=== PATIENT | female | born 1945 | race Caucasian/White ===

== ENCOUNTER 2017-03-10 01:00 | Inpatient (IN) | payer OTHER, MEDICARE ==
[2017-03-10] VITALS (24 sets, daily range): BP systolic 78–162; BP diastolic 47–115; PULSE 76–109; RESP 14–29; TEMP 96.5–99.5; O2SAT 84–100
[~2017-03-10] VITALS: Ht 167.6 cm; Wt 67.5 kg
[~2017-03-10 01:00] MED LIST: ALEN1TAB48 PO; ALPR0.5T3 PO; CHOL1TAB42 PO; FERR1TAB36 PO; FLUT50SP EACH NARE; GABA600T PO; HYDR-3580 PO; LEVA.63I NEB; MELO-1 PO; METO10TA4 PO; OMEP20TA PO; POTA10TA2 PO; PRED5TAB PO; SYMB160A INH; THEO300T4 PO; TIZA2TAB PO; TORS20TA PO; TRAM50TA PO; VENTAER INH; VITA400C5 PO
[2017-03-10] MEDS ORDERED: THEO300T30 PO (01:15)
[2017-03-10] MEDS ORDERED: FERR325T8 PO (01:15)
[2017-03-10] MEDS ORDERED: ACIDWAF (01:15)
[2017-03-10] MEDS ORDERED: IPRASOL INH (01:15)
[2017-03-10] MEDS ORDERED: NYST1000 SWISH-SWAL (01:15)
[2017-03-10] MEDS ORDERED: ACET250T3 PO (01:15)
[2017-03-10] MEDS ORDERED: CALC12502 PO (01:15)
[2017-03-10] MEDS ORDERED: DILT1TAB PO (01:15)
[2017-03-10] MEDS ORDERED: FUROSEMIDE 100 MG/10 ML VIAL IVP ONE (01:15)
[2017-03-10] MEDS ORDERED: SODIUM CHLORIDE 0.9% FLUSH 10 ML FLUSH IVF PRN (01:15)
[2017-03-10] MEDS ORDERED: COLA100C (01:15)
[2017-03-10] MEDS ORDERED: [UNRECOGNIZED DRUG - CODE] IV PUSH (01:15)
[2017-03-10] MEDS: RESP: ALBUTEROL 2.5 MG/IPRATROPIUM 0.5 MG NEB (SCH) INH (01:37)
[2017-03-10 01:46] LABS: BLOOD GAS BASE EXCESS 11.7 mmol/L (-2-2); BLOOD GAS CARBOXYHEMOGLOBIN 1.4 % (0-4); BLOOD GAS HCO3 40 mmol/L (22-26); BLOOD GAS METHEMOGLOBIN 0.8 % (0-2); BLOOD GAS O2 HGB SATURATION 93 % (90-100); BLOOD GAS OXYGEN CONTENT 12.3 Vol % (12.0-20.0); BLOOD GAS PCO2 109 mmHg (38-42); BLOOD GAS PO2 88 mmHG (61-120); BLOOD GAS TOTAL HGB 9.3 G/DL (12.0-16.0); CRITICAL VALUE YES; DRAW SITE RT RADIAL; FIO2 40 %; NUMBER OF ARTERIAL PUNCTURES 1; OXYGEN DEVICE BIPAP; STAT YES; TEMP CORR TO 98.6; ULNAR PULSE PRESENT; VENT SETTINGS IPAP12/EPAP5
[2017-03-10 01:57] LABS: AUTOMATED NEUTROPHIL # 14.5 TH/MM3 (1.8-7.7); BASOPHIL # 0.2 TH/MM3 (0-0.2); BASOPHIL % 1.4 % (0.0-2.0); HEMO FLAGS DIFF FINAL; LYMPH % 2.2 % (9.0-44.0); LYMPHOCYTE # 0.3 TH/MM3 (1.0-4.8); MEAN CELL VOLUME 91.4 FL (80.0-100.0); MEAN CORPUSCULAR HEMOGLOBIN 28.6 PG (27.0-34.0); MEAN CORPUSCULAR HGB CONC 31.3 % (32.0-36.0); MONO % 2.9 % (0.0-8.0); NEUT % 93.5 % (16.0-70.0); PLATELET COUNT 261 TH/MM3 (150-450); RED BLOOD COUNT 3.07 MIL/MM3 (4.00-5.30); RED CELL DISTRIBUTION WIDTH 15.9 % (11.6-17.2); WHITE BLOOD COUNT 15.5 TH/MM3 (4.0-11.0)
[2017-03-10 02:05] LABS: APTT (PATIENT) 24.7 SEC (24.3-30.1); INTERNATIONAL NORMALIZED RATIO 0.9 RATIO; PROTHROMBIN TIME - PATIENT 9.5 SEC (9.8-11.6)
[2017-03-10] MEDS ORDERED: PIPERACIL-TAZO 4.5 GM PREMIX 100 ML IV STA (02:05)
[2017-03-10 02:08] LABS: ALKALINE PHOSPHATASE 134 U/L (45-117); ALT (GPT) 21 U/L (10-53); TOTAL BILIRUBIN ADULT 0.3 MG/DL (0.2-1.0)
[2017-03-10 02:12] LABS: ANION GAP 8 MEQ/L (5-15); AST (GOT) 21 U/L (15-37); BICARBONATE 35.6 MEQ/L (21.0-32.0); BLOOD UREA NITROGEN 24 MG/DL (7-18); CHLORIDE 89 MEQ/L (98-107); GLOMERULAR FILTRATION RATE 63 ML/MIN (>89); POTASSIUM 4.2 MEQ/L (3.5-5.1); SODIUM (NA) 133 MEQ/L (136-145)
[2017-03-10] MEDS ORDERED: VANCOMYCIN INJ 1,000 MG in SODIUM CHLOR 0.9% 250 ML INJ 250 ML IV ONE (02:15)
--- NOTE | 2017-03-10 02:15 | PD ---
HPI Chief Complaint: Respiratory Distress Time Seen by Provider: 01:08 Travel History International Travel<30 days: No Contact w/Intl Traveler<30days: No Traveled to known affect area: No History of Present Illness HPI Patient is a 72-year-old female with history of COPD, pneumonia, diastolic heart failure on chronic home O2 who presents the emergency department with shortness of breath. Patient reportedly recently discharged from [facility] for pneumonia. She has been convalescing at [facility]. At 11 PM shift change nursing staff there noticed patient to be dyspneic. Crackles throughout. She was hypoxic in the 70s. They placed her on 50% Ventimask without improvement and EMS was contacted. Upon EMS arrival, patient hypoxic with diffuse crackles alert and oriented. She was placed on C-peptide by EMS with improvement of O2 sats into the low 90s. EMS to noted diffuse crackles. No fever. Patient notes that she's had some increasing phlegm production over the last 24 hours. Denies any fevers or chills. PFSH Past Medical History Arthritis: Yes Asthma: Yes Anxiety: Yes Depression: Yes Heart Rhythm Problems: Yes (DIASTOLIC DYSFUNCTION) Cancer: No Cardiovascular Problems: No High Cholesterol: Yes COPD: Yes (COPD) Diabetes: No Diminished Hearing: No Endocrine: No Glaucoma: No Hepatitis: No Hiatal Hernia: No Hypertension: No Immune Disorder: No Implanted Vascular Access Dvce: Yes Musculoskeletal: Yes Neurologic: Yes Psychiatric: Yes Reproductive: No Respiratory: Yes (ON OXYGEN 3 LITERS 24/7) Seizures: Yes (NOCTURNAL SEIZURES YEARS AGO) Sleep Apnea: Yes (VERY MILD) Thyroid Disease: No Menopausal: Yes Past Surgical History Abdominal Surgery: Yes () Appendectomy: Yes (1977) Cardiac Surgery: No Ear Surgery: No Endocrine Surgery: No Eye Surgery: Yes (BILATERAL CATARACT EXTRACTION) Genitourinary Surgery: No Gynecologic Surgery: Yes (UTERINE SUSP., LAPAROSCOPY LEFT SALPINGO OOPHORECTOMY ) Hysterectomy: Yes (PARTIAL) Oral Surgery: No Pacemaker: No Thoracic Surgery: No Other Surgery: Yes Social History Alcohol Use: No Tobacco Use: Yes (QUIT LONG AGO) Substance Use: No Allergies-Medications (Allergen,Severity, Reaction): Coded Allergies: Betadine (Verified Allergy, Severe, EDEMA, SKIN BREAKDOWN, 08/13/16) Cephalosporins (Verified Allergy, Severe, YEAAST INFECT., 08/13/16) Cipro (Verified Allergy, Severe, GENERALIZED NUMBNESS, BREATHING PROBLEMS , 08/13/16) Contrast Media (Verified Allergy, Severe, HIVES, CARDIAC ARREST, 08/13/16) Iodine (Verified Allergy, Severe, SWELLING, SKIN BREAKDOWN, 08/13/16) Keflex (Verified Allergy, Severe, 08/13/16) Levaquin (Verified Allergy, Severe, NUMBNESS, SHORTNESS OF BREATH, 08/13/16) Zithromax (Verified Allergy, Severe, 08/13/16) Morphine (Verified Allergy, Mild, ITCHING, 08/13/16) PATIENT STARTED ITCHING AFTER SECOND DOSE OF MORPHINE, NO HIVES OR DIFFICULTY BREATHING NOTED. NURSE GOING TO CALL MD FOR ALVARADO ORDER PATIENT REFUSED IT. Barium Sulfate (Verified Allergy, Unknown, ITCHING AFTER ONE CUP E-Z CAT DRY, 08/13/16) Reported Meds & Prescriptions Reported Meds & Active Scripts Active Reported Theophylline ER 12 HR (Theophylline) 300 Mg Tab 300 Mg PO Q12H Nystatin Liq 100,000 unit/ml Susp 5 Ml SWISH-SWAL QID Acidophilus (Lactobacillus) 1 Mg Wafr Gentamicin Sulfate 5 Gm Powder 160 Mg IV PUSH DAILY Ferrous Sulfate 325 Mg (65 Mg Iron) Tablet 325 Mg PO DAILY Duoneb (Ipratropium-Albuterol Neb) 0.5-2.5 Mg/3 Ml Neb 1 Nebule INH Q6HR NEB Colace (Docusate Sodium) 100 Mg Capsule Cardizem LA (Diltiazem ER 24 HR) 360 Mg Na 360 Mg PO DAILY Calcium Carbonate 1,250 Mg Tab 1,250 Mg PO BID 1,250 mg calcium carbonate (500 mg elemental calcium) Acetazolamide 250 Mg Tab 250 Mg PO DAILY Prednisone 5 Mg Tab 5 Mg PO BID Vitamin D-3 (Cholecalciferol) 2,000 Unit Tab 1 Tab PO DAILY Tramadol (Tramadol HCl) 50 Mg Tab 50 Mg PO Q4H PRN Fluticasone Nasal [place] 50 Mcg/Act Naspr 50 Mcg EACH NARE BID 50 mcg/spray Symbicort Inh (Budesonide/Formoterol Fumarate) 160-4.5 Mcg/Act Aero 1 Puff INH Q12HR Torsemide 20 Mg Tab 20 Mg PO DAILY Tizanidine (Tizanidine HCl) 2 Mg Tab 2 Mg PO TID Alendronate (Alendronate Sodium) 70 Mg Tab 70 Mg PO Q7D Omeprazole 20 Mg Tab 20 Mg PO DAILY Gabapentin 600 Mg Tab 600 Mg PO QID Hydrocodone-Acetaminophen 7.5-325 mg Tab 1 Tab PO Q6H PRN Review of Systems Except as stated in HPI: all other systems reviewed are Neg Physical Exam Narrative GENERAL: Chronically debilitated. Elderly female in moderate respiratory distress SKIN: Focused skin assessment warm/dry. HEAD: Normocephalic. EYES: No scleral icterus. No injection or drainage. ENT: Mucous membranes pink and moist. NECK: Supple CARDIOVASCULAR: Regular rate and rhythm. No murmur appreciated. RESPIRATORY: Moderate respiratory distress on C Pap with diffuse crackles, rhonchi throughout worse in the bases GASTROINTESTINAL: Abdomen soft, non-tender, nondistended. MUSCULOSKELETAL: No obvious deformities. 2-3+ edema in the bilateral lower extremities NEUROLOGICAL: Awake and alert. Normal speech. PSYCHIATRIC: Appropriate mood and affect; insight and judgment normal. Data Data Last Documented VS Vital Signs Date Time Temp Pulse Resp B/P Pulse Ox O2 Delivery O2 Flow Rate FiO2 03/10/17 02:36 82 20 104/52 99 CPAP 100 03/10/17 01:08 97.6 Orders Complete Blood Count With Diff (03/10/17 01:08) Comprehensive Metabolic Panel (03/10/17 01:08) B-Type Natriuretic Peptide (03/10/17 01:08) Act Partial Throm Time (Ptt) (03/10/17 01:08) Prothrombin Time / Inr (Pt) (03/10/17 01:08) Troponin I (03/10/17 01:08) Arterial Blood Gas (Abg) (03/10/17 01:08) Urinalysis - C+S If Indicated (03/10/17 01:08) Blood Culture (03/10/17 01:08) Iv Access Insert/Monitor (03/10/17 01:08) Electrocardiogram (03/10/17 01:08) Ecg Monitoring (03/10/17 01:08) Oximetry (03/10/17 01:08) Oxygen Administration (03/10/17 01:08) Chest, Single Ap (03/10/17 01:08) Cath For Specimen (03/10/17 01:08) Sodium Chloride 0.9% Flush (Ns Flush) (03/10/17 01:15) Furosemide Inj (Lasix Inj) (03/10/17 01:15) Albuterol-Ipratropium Neb (Duoneb Neb) (03/10/17 01:15) Resp Bipap / Cpap Non Invas Vt (03/10/17 01:08) Lipase (03/10/17 01:08) Lactic Acid Sepsis Protocol (03/10/17 01:08) Blood Culture (03/10/17 01:08) Piperacil-Tazo 4.5 Gm Premix (Zosyn 4.5 (03/10/17 02:05) Vancomycin Inj (Vancomycin Inj) (03/10/17 02:15) Labs Laboratory Tests Test 03/10/17 03/10/17 03/10/17 01:15 01:35 02:08 White Blood Count 15.5 TH/MM3 Red Blood Count 3.07 MIL/MM3 Hemoglobin 8.8 GM/DL Hematocrit 28.0 % Mean Corpuscular Volume 91.4 FL Mean Corpuscular Hemoglobin 28.6 PG Mean Corpuscular Hemoglobin 31.3 % Concent Red Cell Distribution Width 15.9 % Platelet Count 261 TH/MM3 Mean Platelet Volume 8.5 FL Neutrophils (%) (Auto) 93.5 % Lymphocytes (%) (Auto) 2.2 % Monocytes (%) (Auto) 2.9 % Eosinophils (%) (Auto) 0.0 % Basophils (%) (Auto) 1.4 % Neutrophils # (Auto) 14.5 TH/MM3 Lymphocytes # (Auto) 0.3 TH/MM3 Monocytes # (Auto) 0.5 TH/MM3 Eosinophils # (Auto) 0.0 TH/MM3 Basophils # (Auto) 0.2 TH/MM3 CBC Comment DIFF FINAL Differential Comment Prothrombin Time 9.5 SEC Prothromb Time International 0.9 RATIO Ratio Activated Partial 24.7 SEC Thromboplast Time Sodium Level 133 MEQ/L Potassium Level 4.2 MEQ/L Chloride Level 89 MEQ/L Carbon Dioxide Level 35.6 MEQ/L Anion Gap 8 MEQ/L Blood Urea Nitrogen 24 MG/DL Creatinine 0.88 MG/DL Estimat Glomerular Filtration 63 ML/MIN Rate Random Glucose 155 MG/DL Lactic Acid Level 2.5 mmol/L Calcium Level 9.4 MG/DL Total Bilirubin 0.3 MG/DL Aspartate Amino Transf 21 U/L (AST/SGOT) Alanine Aminotransferase 21 U/L (ALT/SGPT) Alkaline Phosphatase 134 U/L Troponin I LESS THAN 0.02 NG/ML B-Type Natriuretic Peptide 87 PG/ML Total Protein 7.1 GM/DL Albumin 2.0 GM/DL Lipase 130 U/L Blood Gas Puncture Site RT RADIAL Blood Gas Patient Temperature 98.6 Blood Gas HCO3 40 mmol/L Blood Gas Base Excess 11.7 mmol/L Blood Gas Oxygen Saturation 93 % Arterial Blood pH 7.19 Arterial Blood Partial 109 mmHg Pressure CO2 Arterial Blood Partial 88 mmHG Pressure O2 Arterial Blood Oxygen Content 12.3 Vol % Arterial Blood 1.4 % Carboxyhemoglobin Arterial Blood Methemoglobin 0.8 % Blood Gas Hemoglobin 9.3 G/DL Oxygen Delivery Device BIPAP Blood Gas Ventilator Setting IPAP12/EPAP5 Blood Gas Inspired Oxygen 40 % Urine Color YELLOW Urine Turbidity CLEAR Urine pH 5.5 Urine Specific [place] 1.013 Urine Protein 30 mg/dL Urine Glucose (UA) NEG mg/dL Urine Ketones NEG mg/dL Urine Occult Blood NEG Urine Nitrite NEG Urine Bilirubin NEG Urine Urobilinogen LESS THAN 2.0 MG/DL Urine Leukocyte Esterase NEG Urine RBC 5 /hpf Urine WBC 3 /hpf Urine Bacteria RARE /hpf Urine Mucus FEW /lpf Microscopic Urinalysis Comment CULT NOT INDICATED MDM Medical Decision Making Medical Screen Exam Complete: Yes Emergency Medical Condition: Yes Medical Record Reviewed: Yes Differential Diagnosis 72-year-old female with history of COPD, pneumonia with recent hospital admission for same, diastolic heart failure here with increasing sputum production and shortness of breath 24 hours, hypoxic in the 70s. Differential includes COPD exacerbation, pneumonia, hypercapnic or hypoxic respiratory failure, CHF exacerbation, pulmonary edema, symptomatic anemia, ACS. Narrative Course Patient met by myself upon emergency department arrival. Placed on monitor, IV established and blood obtained. She was placed on BiPAP therapy, given DuoNeb 3 and 80 mg of Lasix given concern for pulmonary edema. Twelve-lead EKG shows sinus rhythm, short ND interval but no notable ST abnormalities. ABG shortly after patient was placed on BiPAP shows respiratory acidosis with pH 7.190, PCO2 109, PO2 87.8, bicarbonate 39.9, partially compensated. CBC, CMP, lipase, BNP, troponin, coags, urinalysis, blood cultures, lactic acid were obtained and notable for leukocytosis 15.1 with left shift. Hemoglobin 8.8. Lactic acid slightly elevated at 2.5. Patient was empirically covered with vancomycin and Zosyn for broad-spectrum antibiotics. Portable chest x-ray obtained that by my read shows no evidence of pulmonary vascular congestion or pulmonary edema, but rather airspace disease right greater than left. Therefore patient was given IV fluid resuscitation. We'll be admitted for further management of pulmonary source sepsis. On BiPAP patient is on 40% FiO2 with O2 sats in the low 90s and feels markedly improved. Obtain CBC and approximated one hour for repeat to evaluate for improvement. Critical Care Narrative Aggregate critical care time was 50 minutes. Time to perform other separately billable procedures was not included in the critical care time. My time did not include minutes spent treating any other patients simultaneously or on activities that did not directly contribute to the patient's treatment. The services I provided to this patient were to treat and/or prevent clinically significant deterioration that could result in: Cardiopulmonary decompensation, sepsis, , disability I provided critical care services requiring my management, as noted below: Chart data review, documentation time, medication orders and management, vital sign assessments/reviewing monitor data, ordering and reviewing lab tests, ordering and interpreting/reviewing x-rays and diagnostic studies, care of the patient and discussion of the patient with the admitting physicians. Sepsis Criteria SIRS Criteria (2 or more): Heart rate over 90, WBC > 91737, < 4000 or > 10% bands Sepsis Criteria (SIRS+source): Infect source susp/known Severe Sepsis (+one): Lactate >2 Criteria Outcome: Meets SIRS criteria, Meets sepsis criteria, Meets severe sepsis criteria Diagnosis Primary Impression: Severe sepsis Additional Impressions: Hospital-acquired pneumonia Hypercapnic respiratory failure Qualified Code: J96.22 - Acute on chronic respiratory failure with hypercapnia Acute respiratory failure with hypoxia Admitting Information Admitting Physician Requests: Admit Leyla Delgado MD Mar 10, 2017 02:15
[2017-03-10 02:30] LABS: BACTERIA, URINE RARE /hpf; BLOOD, URINE NEG (NEG); GLUCOSE,URINE NEG (NEG); KETONE, URINE NEG (NEG); MUCUS URINE FEW /lpf (OCC); NITRITE,URINE NEG (NEG); PH, URINE 5.5 (5.0-8.5); URINE COLOR YELLOW (YELLW/STRAW)
[2017-03-10 02:35] LABS: COMMENT (UR) CULT NOT INDICATED; CULTURE IF INDICATED CULT NOT INDICATED
--- NOTE | 2017-03-10 02:58 | RADRPT ---
EXAM DATE/TIME: 03/10/2017 01:21 [place] COMPARISON: No previous studies available for comparison. INDICATIONS : Respiratory distress. MEDICAL HISTORY : None. SURGICAL HISTORY : None. ENCOUNTER: Initial ACUITY: 1 day PAIN SCORE: Non-responsive. LOCATION: Bilateral chest FINDINGS: The cardiac silhouette is normal in transverse diameter. There are chronic fibrotic changes bilateral ly. There is no evidence of pneumonia. CONCLUSION: 1. Chronic fibrotic changes bilaterally. No acute pulmonary disease. Montrell Bustamante MD on March 10, 2017 at 2:52 Board Certified Radiologist. This report was verified electronically.
[2017-03-10] MEDS ORDERED: SODIUM CHLOR 0.9% 1000 ML INJ 1,000 ML IV ONE (03:00)
[2017-03-10 03:30] LABS: LACTIC ACID GHOST NOT REPORTABLE
[2017-03-10] MEDS ORDERED: SODIUM CHLOR 0.9% 1000 ML INJ 1,000 ML IV SCH (03:54)
[2017-03-10] MEDS ORDERED: methylPREDNISolone SOD SUCC 125 MG/2 ML VIAL IV PUSH STA (04:00)
[2017-03-10] MEDS: RESP: ALBUTEROL 2.5 MG/IPRATROPIUM 0.5 MG NEB (SCH) NEB ×5 (04:00→21:07)
[2017-03-10] MEDS ORDERED: MISCELLANEOUS NURSING INFORMATION XX SCH (04:00)
[2017-03-10] MEDS ORDERED: CHLORHEXIDINE GLUCONATE 2 % 1 PACK (2 CLOTHS) TOP PRN (04:00)
[2017-03-10] MEDS ORDERED: ACETAMINOPHEN 325 MG TAB PO PRN (04:00)
[2017-03-10] MEDS: ENOXAPARIN SODIUM 40 MG/0.4 ML SYRINGE SQ SCH (04:03)
[2017-03-10] MEDS: AZTREONAM INJ 1,000 MG in SODIUM CHLORIDE 0.9% INJ 100 ML IV SCH ×3 (04:38→20:41)
[2017-03-10] MEDS: THEOPHYLLINE ER 12 HR 300 MG TABCR PO SCH ×2 (04:39→14:50)
[2017-03-10 04:49] LABS: BLOOD GAS BASE EXCESS 11.9 mmol/L (-2-2); BLOOD GAS CARBOXYHEMOGLOBIN 1.3 % (0-4); BLOOD GAS HCO3 39 mmol/L (22-26); BLOOD GAS METHEMOGLOBIN 0.7 % (0-2); BLOOD GAS O2 HGB SATURATION 89 % (90-100); BLOOD GAS PCO2 89 mmHg (38-42); BLOOD GAS PO2 62 mmHG (61-120); BLOOD GAS TOTAL HGB 9.5 G/DL (12.0-16.0); CRITICAL VALUE YES; OXYGEN DEVICE BIPAP; TEMP CORR TO 98.6
[2017-03-10 04:50] LABS: DRAW SITE RT RADIAL; FIO2 45 %; NUMBER OF ARTERIAL PUNCTURES 1; STAT YES; ULNAR PULSE PRESENT; VENT SETTINGS IPAP=12 EPAP=5 RR=20
--- NOTE | 2017-03-10 05:10 | HHI.HP ---
HPI Service Critical Care Medicine Primary Care Physician Unknown Admission Diagnosis hypoxic/hypercapnic respiratory failure, pulmonary source sepsis Diagnosis: (1) Acute hypoxemic and hypercarbic respiratory failure Diagnosis: Principal (2) Acute exacerbation of chronic obstructive pulmonary disease (COPD) Diagnosis: Principal (3) Severe sepsis Diagnosis: Principal (4) Possible pneumonia Diagnosis: Principal (5) Diastolic heart failure Diagnosis: Secondary (6) COPD on home oxygen Diagnosis: Secondary (7) Seizure disorder Diagnosis: Secondary Chief Complaint: Acute hypoxemic and hypercarbic respiratory failure Travel History International Travel<30 Days: No Contact w/Intl Traveler <30 Da: No Traveled to Known Affected Are: No Sepsis Criteria SIRS Criteria (2 or more): RR > 20 or PaCO2 < 32, WBC > 76461, < 4000 or > 10 % bands Sepsis Criteria (SIRS+source): Infect source susp/known Severe Sepsis (+one): Lactate >2 Criteria Outcome: Meets severe sepsis criteria History of Present Illness Patient is a 72-year-old chronically ill debilitated female with history of COPD on home oxygen, pneumonia, diastolic heart failure, COPD on chronic home O2 who presented to the emergency department with shortness of breath. She was recently discharged from [facility] after admission for pneumonia and was at [facility] for Rehab. Patient was dyspneic with crackles on the chest and 70% oxygen saturation. jail placed her on 50% Ventimask without improvement and EMS was contacted. EMS initiated on CPAP with improvement of O2 saturation to 90s. In emergency department patient was found in acute distress and was placed on BiPAP, given DuoNeb 3 and 80 mg of Lasix IV. ABG just after patient was placed on BiPAP shows respiratory acidosis with pH 7.19, PCO2 109, PO2 88. WBC was elevated at 15.1 with left shift. Lactic acid slightly elevated at 2.5. Patient was empirically covered with vancomycin and Zosyn for possible HCAP I evaluated the patient in the ED. Currently remains on BiPAP symptomatically slightly improved but still has labored breathing and diffuse crackles. Patient would like to try to avoid intubation if possible and son concurs with her decision. She want to continue to be a full code. Chest x-ray on my review did not show any acute infiltrates. I will continue breathing treatments and start IV Solu-Medrol 125 mg 1 and 60 mg IV every 8 hours. Broad -spectrum antibiotics coverage with Azactam. Updated patient and her son at the bedside. I informed him that if not steadily improving patient may need endotracheal intubation Review of Systems ROS Limitations: Clinical Condition (as per HPI) Past Family Social History Allergies: Coded Allergies: Betadine (Verified Allergy, Severe, EDEMA, SKIN BREAKDOWN, 08/13/16) Cephalosporins (Verified Allergy, Severe, YEAAST INFECT., 08/13/16) Cipro (Verified Allergy, Severe, GENERALIZED NUMBNESS, BREATHING PROBLEMS , 08/13/16) Contrast Media (Verified Allergy, Severe, HIVES, CARDIAC ARREST, 08/13/16) Iodine (Verified Allergy, Severe, SWELLING, SKIN BREAKDOWN, 08/13/16) Keflex (Verified Allergy, Severe, 08/13/16) Levaquin (Verified Allergy, Severe, NUMBNESS, SHORTNESS OF BREATH, 08/13/16) Zithromax (Verified Allergy, Severe, 08/13/16) Morphine (Verified Allergy, Mild, ITCHING, 08/13/16) PATIENT STARTED ITCHING AFTER SECOND DOSE OF MORPHINE, NO HIVES OR DIFFICULTY BREATHING NOTED. NURSE GOING TO CALL MD FOR ALVARADO ORDER PATIENT REFUSED IT. Barium Sulfate (Verified Allergy, Unknown, ITCHING AFTER ONE CUP E-Z CAT DRY, 08/13/16) Past Medical History COPD on home oxygen Diastolic heart failure Past history of seizure Anxiety Past Surgical History Appendectomy Cataract surgery Partial hysterectomy Left salpingo-oophorectomy Reported Medications Theophylline ER 12 HR (Theophylline) 300 Mg Tab 300 Mg PO Q12H Nystatin Liq 100,000 unit/ml Susp 5 Ml SWISH-SWAL QID Acidophilus (Lactobacillus) 1 Mg Wafr Gentamicin Sulfate 5 Gm Powder 160 Mg IV PUSH DAILY Ferrous Sulfate 325 Mg (65 Mg Iron) Tablet 325 Mg PO DAILY Duoneb (Ipratropium-Albuterol Neb) 0.5-2.5 Mg/3 Ml Neb 1 Nebule INH Q6HR NEB Colace (Docusate Sodium) 100 Mg Capsule Cardizem LA (Diltiazem ER 24 HR) 360 Mg Na 360 Mg PO DAILY Calcium Carbonate 1,250 Mg Tab 1,250 Mg PO BID 1,250 mg calcium carbonate (500 mg elemental calcium) Acetazolamide 250 Mg Tab 250 Mg PO DAILY Prednisone 5 Mg Tab 5 Mg PO BID Vitamin D-3 (Cholecalciferol) 2,000 Unit Tab 1 Tab PO DAILY Tramadol (Tramadol HCl) 50 Mg Tab 50 Mg PO Q4H PRN Fluticasone Nasal [place] 50 Mcg/Act Naspr 50 Mcg EACH NARE BID 50 mcg/spray Symbicort Inh (Budesonide/Formoterol Fumarate) 160-4.5 Mcg/Act Aero 1 Puff INH Q12HR Torsemide 20 Mg Tab 20 Mg PO DAILY Tizanidine (Tizanidine HCl) 2 Mg Tab 2 Mg PO TID Alendronate (Alendronate Sodium) 70 Mg Tab 70 Mg PO Q7D Omeprazole 20 Mg Tab 20 Mg PO DAILY Gabapentin 600 Mg Tab 600 Mg PO QID Hydrocodone-Acetaminophen 7.5-325 mg Tab 1 Tab PO Q6H PRN Active Ordered Medications Reviewed Family History Unable to obtain due to clinical condition Social History Quit smoking approximately 5 years ago Physical Exam Vital Signs Vital Signs Date Time Temp Pulse Resp B/P Pulse Ox O2 Delivery O2 Flow Rate FiO2 03/10/17 04:51 92 45 03/10/17 02:50 80 20 124/56 88 CPAP 40 03/10/17 02:36 82 20 104/52 99 CPAP 100 03/10/17 02:30 100 35 03/10/17 01:56 100 BiPAP 03/10/17 01:13 100 CPAP 100 03/10/17 01:08 97.6 87 23 101/51 94 CPAP 100 03/10/17 01:08 24 94 CPAP 100 03/10/17 01:05 97.6 93 14 101/51 84 03/10/17 01:00 92 100 Physical Exam GENERAL: Chronically ill-appearing and debilitated elderly female, who is on BiPAP appears acutely critically ill SKIN: Warm/dry. HEAD: Normocephalic. EYES: No scleral icterus. No injection or drainage. ENT: Mucous membranes moist. NECK: Supple CARDIOVASCULAR: Regular rate and rhythm. No murmur appreciated. RESPIRATORY: On BiPAP with diffuse crackles, rhonchi throughout bilateral lung [place] GASTROINTESTINAL: Abdomen soft, non-tender, nondistended. MUSCULOSKELETAL: No obvious deformities. 2+ edema in the bilateral lower extremities NEUROLOGICAL: Awake and alert. No focal deficits. Respiratory distress limits exam Laboratory Laboratory Tests Test 03/10/17 03/10/17 03/10/17 03/10/17 01:15 01:35 02:08 04:35 White Blood Count 15.5 Red Blood Count 3.07 Hemoglobin 8.8 Hematocrit 28.0 Mean Corpuscular Volume 91.4 Mean Corpuscular Hemoglobin 28.6 Mean Corpuscular Hemoglobin 31.3 Concent Red Cell Distribution Width 15.9 Platelet Count 261 Mean Platelet Volume 8.5 Neutrophils (%) (Auto) 93.5 Lymphocytes (%) (Auto) 2.2 Monocytes (%) (Auto) 2.9 Eosinophils (%) (Auto) 0.0 Basophils (%) (Auto) 1.4 Neutrophils # (Auto) 14.5 Lymphocytes # (Auto) 0.3 Monocytes # (Auto) 0.5 Eosinophils # (Auto) 0.0 Basophils # (Auto) 0.2 CBC Comment DIFF FINAL Differential Comment Prothrombin Time 9.5 Prothromb Time International 0.9 Ratio Activated Partial 24.7 Thromboplast Time Sodium Level 133 Potassium Level 4.2 Chloride Level 89 Carbon Dioxide Level 35.6 Anion Gap 8 Blood Urea Nitrogen 24 Creatinine 0.88 Estimat Glomerular Filtration 63 Rate Random Glucose 155 Lactic Acid Level 2.5 Calcium Level 9.4 Magnesium Level 2.1 Total Bilirubin 0.3 Aspartate Amino Transf 21 (AST/SGOT) Alanine Aminotransferase 21 (ALT/SGPT) Alkaline Phosphatase 134 Troponin I LESS THAN 0.02 B-Type Natriuretic Peptide 87 Total Protein 7.1 Albumin 2.0 Lipase 130 Blood Gas Puncture Site RT RADIAL RT RADIAL Blood Gas Patient Temperature 98.6 98.6 Blood Gas HCO3 40 39 Blood Gas Base Excess 11.7 11.9 Blood Gas Oxygen Saturation 93 89 Arterial Blood pH 7.19 7.27 Arterial Blood Partial 109 89 Pressure CO2 Arterial Blood Partial 88 62 Pressure O2 Arterial Blood Oxygen Content 12.3 12.0 Arterial Blood 1.4 1.3 Carboxyhemoglobin Arterial Blood Methemoglobin 0.8 0.7 Blood Gas Hemoglobin 9.3 9.5 Oxygen Delivery Device BIPAP BIPAP Blood Gas Ventilator Setting IPAP12/EPAP5 IPAP=12 EPAP=5 RR=20 Blood Gas Inspired Oxygen 40 45 Urine Color YELLOW Urine Turbidity CLEAR Urine pH 5.5 Urine Specific [place] 1.013 Urine Protein 30 Urine Glucose (UA) NEG Urine Ketones NEG Urine Occult Blood NEG Urine Nitrite NEG Urine Bilirubin NEG Urine Urobilinogen LESS THAN 2.0 Urine Leukocyte Esterase NEG Urine RBC 5 Urine WBC 3 Urine Bacteria RARE Urine Mucus FEW Microscopic Urinalysis Comment CULT NOT INDICATED Date/Time Procedure Status Source Growth 03/10/17 01:20 Aerobic Blood Culture Received Blood Peripheral Pending 03/10/17 01:20 Anaerobic Blood Culture Received Blood Peripheral Pending Result Diagram: 03/10/17 0115 03/10/17 011 Imaging CXR No acute findings Septic Shock Reassessment Heart: Other (Tachycardic) Lungs: Course, Crackles Peripheral Pulses: Weak Right Radial Weak Left Radial Assessment and Plan Assessment and Plan NEURO: History of seizure disorder - Continue Neurontin - Watch for seizures, seizure precautions RESP: Acute hypoxemic and hypercarbic respiratory failure Acute COPD exacerbation - BiPAP 07/09. Serial ABG's as indicated - I have informed the patient and her son that she may need endotracheal intubation and mechanical ventilation - DuoNeb every 4 hours scheduled and when necessary - IV Solu-Medrol 125 mg 1 and 60 mg IV every 8 hours - Continue Symbicort and theophylline. Add Spiriva - Empiric Azactam for bronchitis CV: Diastolic heart failure Pedal edema - Received 80 mg IV Lasix in the ED. Continue 20 mg IV Lasix every 12 - Check 2-D echo GI: - Nothing by mouth and her clinical condition improves. IV Protonix : - Monitor renal function closely. Place [place] catheter. ID: - Empiric Azactam. F/U on blood and sputum culture HEME: -Monitor CBC, CMP ENDO: - Electrolyte replacement per protocol PROPH: - Bilateral lower extremity SCDs. Lovenox 40 mg subcutaneous daily. IV Protonix 40 mg daily LINES: - Utilize peripheral IVs, central line if needed CC time 55 min Code Status Full code Discussed Condition With Dr. Arevalo, patient and her son Problem Qualifiers (1) Diastolic heart failure: Qualified Code: I50.30 - Diastolic heart failure, unspecified heart failure chronicity Constanza Roca MD Mar 10, 2017 05:10
[2017-03-10] MEDS: CHLORHEXIDINE GLUCONATE 2 % 1 PACK (2 CLOTHS) TOP SCH (06:00)
[2017-03-10] MEDS: methylPREDNISolone SOD SUCC 125 MG/2 ML VIAL IV PUSH SCH ×3 (06:32→20:42)
[2017-03-10] MEDS: CHLORHEXIDINE 0.12% (ORAL KIT) 15 ML CUP MT SCH ×2 (08:00→20:41)
--- NOTE | 2017-03-10 08:46 | ECHRPT ---
Indication: HEART FAILURE CONCLUSIONS Normal left ventricular size. Wall thickness is normal. The left ventricular systolic function is grossly normal on limited imaging. LVEF <65% No regional wall motion abnormalities are present. Doppler parameters are consistent with impaired left ventricular relaxtion (grade 1 diastolic dysfun ction). There is estimated moderate pulmonary hypertension present (range 50-60 mmHg). Possible trace to mild anteriror pericardial effusion vs anteiror fat pad. BP: 123 / 59 HR: 93 Rhythm: MEASUREMENTS (Male / Female) Normal Values Technical Quality:Technically difficult study M-MODE LV Diastolic Diameter MM 4.4 cm 4.2 - 5.9 / 3.9 - 5.3 cm LV Systolic Diameter MM 2.9 cm LV Ejection Fraction MM Teich 63.9 % LV Cardiac Index MM Teich 2944.4 cm/minm IVS Diastolic Thickness MM 1.1 cm 0.6 - 1.0 / 0.6 - 0.9 cm LVPW Diastolic Thickness MM 1.0 cm 0.6 - 1.0 / 0.6 - 0.9 cm LV Relative Wall Thickness MM 0.5 0.24 - 0.42 / 0.22 - 0.42 LV Mass Index MM 88.1 g/m 49 - 115 / 43 - 95 g/m RV Diastolic Diameter MM 1.3 cm DOPPLER AV Peak Velocity 222.0 cm/s AV Peak Gradient 19.7 mmHg AV Mean Gradient 8.0 mmHg AV Velocity Time Integral 27.9 cm LVOT Peak Velocity 170.0 cm/s LVOT Peak Gradient 11.6 mmHg LVOT Velocity Time Integral 22.7 cm Mitral E Point Velocity 77.8 cm/s Mitral A Point Velocity 91.8 cm/s Mitral E to A Ratio 0.8 LV E' Lateral Velocity 8.3 cm/s Mitral E to LV E' Lateral Ratio 9.4 LV E' Septal Velocity 7.2 cm/s Mitral E to LV E' Septal Ratio 10.8 TR Peak Velocity 331.0 cm/s TR Peak Gradient 43.8 mmHg FINDINGS LEFT VENTRICLE Normal left ventricular size. Wall thickness is normal. The left ventricular systolic function is grossly normal on limited imaging. No regional wall motion abnormalities are present. Doppler parameters are consistent with impaired left ventricular relaxtion (grade 1 diastolic dysfun ction). RIGHT VENTRICLE Normal right ventricular size and systolic function. MITRAL VALVE Structurally normal mitral valve. Trace mitral valve regurgitation. AORTIC VALVE The aortic valve is not well visualized. No aortic valve stenosis. No aortic valve regurgitation. TRICUSPID VALVE The tricuspid valve is not well visualized. There is trace tricuspid valve regurgitation. There is estimated moderate pulmonary hypertension present (range 50-60 mmHg). PERICARDIUM Possible trace to mild anteriror pericardial effusion vs anteiror fat pad. Samuel Perry MD (Electronically Signed) Final Date:10 March 2017 08:45
[2017-03-10] MEDS: TIOTROPIUM BROMIDE 18 MCG INH INH SCH (09:00)
[2017-03-10] MEDS: BUDESONIDE-FORMOTEROL 160/4.5 MCG INHALER INH SCH ×2 (09:00→21:11)
[2017-03-10] MEDS: FLUTICASONE PROPIONATE 50 MCG/ACT 16 GM NASAL SPRAY EACH NARE SCH ×2 (09:00→21:11)
[2017-03-10] MEDS ORDERED: predniSONE 5 MG TAB PO SCH (09:00)
[2017-03-10] MEDS ORDERED: TORSEMIDE 20 MG TAB PO SCH (09:00)
[2017-03-10] MEDS: FUROSEMIDE 20 MG/2 ML VIAL IV PUSH SCH ×2 (09:34→17:37)
[2017-03-10] MEDS: PANTOPRAZOLE SODIUM 40 MG VIAL IV SCH (09:34)
[2017-03-10] MEDS: DILTIAZEM-CD 180 MG CAP ER PO SCH (09:35)
[2017-03-10] MEDS: GABAPENTIN 300 MG CAP PO SCH ×4 (09:35→20:42)
[2017-03-10] MEDS: CHOLECALCIFEROL (VIT D3) 1000 UNIT TAB PO SCH (09:35)
[2017-03-10] MEDS: FERROUS SULFATE 325 MG (65 MG ELEMENTAL IRON) TAB PO SCH (09:35)
[2017-03-10] MEDS: acetaZOLAMIDE 250 MG TAB PO SCH (11:45)
[2017-03-10 12:58] LABS: BLOOD GAS BASE EXCESS 14.8 mmol/L (-2-2); BLOOD GAS CARBOXYHEMOGLOBIN 1.7 % (0-4); BLOOD GAS HCO3 41 mmol/L (22-26); BLOOD GAS METHEMOGLOBIN 1.3 % (0-2); BLOOD GAS O2 HGB SATURATION 92 % (90-100); BLOOD GAS OXYGEN CONTENT 10.4 Vol % (12.0-20.0); BLOOD GAS PCO2 76 mmHg (38-42); BLOOD GAS PO2 75 mmHg (61-120); BLOOD GAS TOTAL HGB 7.9 G/DL (12.0-16.0); TEMP CORR TO 98.6
[2017-03-10 12:59] LABS: CRITICAL VALUE YES; DRAW SITE RT RADIAL; FIO2 50 %; NUMBER OF ARTERIAL PUNCTURES 1; OXYGEN DEVICE BIPAP; STAT NO; ULNAR PULSE PRESENT; VENT SETTINGS IPAP+14/EPAP+5
--- NOTE | 2017-03-10 17:14 | EKG ---
Date Performed: 03/10/2017 Time Performed: 01:22:07 PTAGE: 72 years EKG: Sinus rhythm WITH SHORT CO INTERVAL BORDERLINE ECG Since PREVIOUS TRACING , no significant change noted PREVIOUS TRACIN03/16/2011 17.51 DOCTOR: Vincenzo Rico Interpretating Date/Time 03/10/2017 17:13:45
[2017-03-10] MEDS ORDERED: SODIUM CHLORID 0.9% 500 ML INJ 500 ML IV ONE (17:30)
[2017-03-10] MEDS ORDERED: ALBUMIN HUMAN 25% 25 GM/100 ML BAGP IV SCH (23:15)
[2017-03-11] VITALS (22 sets, daily range): BP systolic 92–117; BP diastolic 51–58; PULSE 91–107; RESP 18–29; TEMP 99–99.6; O2SAT 91–99
[2017-03-11] MEDS: RESP: ALBUTEROL 2.5 MG/IPRATROPIUM 0.5 MG NEB (SCH) NEB ×7 (01:12→23:37)
[2017-03-11] MEDS: CHLORHEXIDINE GLUCONATE 2 % 1 PACK (2 CLOTHS) TOP SCH (04:00)
--- NOTE | 2017-03-11 05:04 | RADRPT ---
EXAM DATE/TIME: 03/11/2017 03:35 [facility] COMPARISON: CHEST SINGLE AP, March 10, 2017, 1:21. INDICATIONS : Short of breath. MEDICAL HISTORY : None. SURGICAL HISTORY : None. ENCOUNTER: Subsequent ACUITY: 2 days PAIN SCORE: 0/10 LOCATION: Bilateral chest FINDINGS: Left lower lobe consolidation. ACDF hardware overlies the cervical spine. Minimal streaky infiltrate right upper lobe. Small left effusion suspected. Cardiomegaly. CONCLUSION: Increasing consolidation in the left lower lobe. Adi Benitez MD on March 11, 2017 at 5:02 Board Certified Radiologist. This report was verified electronically.
[2017-03-11] MEDS: AZTREONAM INJ 1,000 MG in SODIUM CHLORIDE 0.9% INJ 100 ML IV SCH ×3 (05:09→21:14)
[2017-03-11] MEDS: THEOPHYLLINE ER 12 HR 300 MG TABCR PO SCH ×2 (05:09→16:41)
[2017-03-11] MEDS: ENOXAPARIN SODIUM 40 MG/0.4 ML SYRINGE SQ SCH (05:09)
[2017-03-11] MEDS: methylPREDNISolone SOD SUCC 125 MG/2 ML VIAL IV PUSH SCH ×3 (05:10→21:16)
[2017-03-11 05:25] LABS: BLOOD GAS BASE EXCESS 13.3 mmol/L (-2-2); BLOOD GAS CARBOXYHEMOGLOBIN 1.5 % (0-4); BLOOD GAS HCO3 39 mmol/L (22-26); BLOOD GAS O2 HGB SATURATION 95 % (90-100); BLOOD GAS OXYGEN CONTENT 12.3 Vol % (12.0-20.0); BLOOD GAS PCO2 73 mmHg (38-42); BLOOD GAS PO2 96 mmHg (61-120); BLOOD GAS TOTAL HGB 9.1 G/DL (12.0-16.0); CRITICAL VALUE YES; DRAW SITE LT RADIAL; FIO2 50 %; NUMBER OF ARTERIAL PUNCTURES 1; OXYGEN DEVICE BIPAP; STAT NO; TEMP CORR TO 98.6; ULNAR PULSE PRESENT; VENT SETTINGS IPAP14/EPAP5/R15
[2017-03-11 05:47] LABS: AUTOMATED NEUTROPHIL # 8.4 TH/MM3 (1.8-7.7); LYMPH % 1.8 % (9.0-44.0); LYMPHOCYTE # 0.2 TH/MM3 (1.0-4.8); MEAN CORPUSCULAR HEMOGLOBIN 29.1 PG (27.0-34.0); MEAN CORPUSCULAR HGB CONC 32.3 % (32.0-36.0); MONO % 2.2 % (0.0-8.0); PLATELET COUNT 206 TH/MM3 (150-450); RED BLOOD COUNT 2.31 MIL/MM3 (4.00-5.30); RED CELL DISTRIBUTION WIDTH 15.9 % (11.6-17.2); WHITE BLOOD COUNT 8.8 TH/MM3 (4.0-11.0)
[2017-03-11 05:51] LABS: HEMO FLAGS AUTO DIFF
[2017-03-11 05:53] LABS: HEMATOCRIT 20.8 % (35.0-46.0)
[2017-03-11 06:10] LABS: ALKALINE PHOSPHATASE 96 U/L (45-117); ALT (GPT) 14 U/L (10-53); ANION GAP 5 MEQ/L (5-15); AST (GOT) 7 U/L (15-37); BICARBONATE 41.6 MEQ/L (21.0-32.0); BLOOD UREA NITROGEN 29 MG/DL (7-18); CHLORIDE 91 MEQ/L (98-107); GLOMERULAR FILTRATION RATE 72 ML/MIN (>89); SODIUM (NA) 138 MEQ/L (136-145); TOTAL BILIRUBIN ADULT 0.3 MG/DL (0.2-1.0)
[2017-03-11 06:16] LABS: POTASSIUM 2.8 MEQ/L (3.5-5.1)
[2017-03-11] MEDS: CHLORHEXIDINE 0.12% (ORAL KIT) 15 ML CUP MT SCH ×2 (08:00→21:15)
[2017-03-11] MEDS ORDERED: POTASSIUM CHLOR 20 MEQ PREMIX 100 ML ONE (08:21)
[2017-03-11 08:31] LABS: BANDS 8 % (0-6); NEUTROPHIL # MANUAL DIFF 8.3 TH/MM3 (1.8-7.7); POLYS (SEG NEUTROPHILS) 86 % (16-70); WBC DIFF SAMPLE 100
[2017-03-11] MEDS: POTASSIUM CHLOR 20 MEQ PREMIX 100 ML IV SCH ×2 (08:31→12:36)
[2017-03-11] MEDS: GABAPENTIN 300 MG CAP PO SCH (08:31)
[2017-03-11] MEDS: CHOLECALCIFEROL (VIT D3) 1000 UNIT TAB PO SCH (08:31)
[2017-03-11] MEDS: FERROUS SULFATE 325 MG (65 MG ELEMENTAL IRON) TAB PO SCH (08:31)
[2017-03-11 08:32] LABS: PLATELET ESTIMATE SMEAR NORMAL (NORMAL); PLATELET MORPHOLOGY NORMAL (NORMAL); SCAN/DIFF FINAL DIFF MANUAL
[2017-03-11] MEDS: PANTOPRAZOLE SODIUM 40 MG VIAL IV SCH (08:32)
[2017-03-11] MEDS: FLUTICASONE PROPIONATE 50 MCG/ACT 16 GM NASAL SPRAY EACH NARE SCH ×2 (08:32→21:15)
[2017-03-11] MEDS: TIOTROPIUM BROMIDE 18 MCG INH INH SCH (08:32)
[2017-03-11] MEDS: BUDESONIDE-FORMOTEROL 160/4.5 MCG INHALER INH SCH ×2 (08:32→21:15)
[2017-03-11] MEDS: acetaZOLAMIDE 250 MG TAB PO SCH (08:33)
[2017-03-11] MEDS: DILTIAZEM-CD 180 MG CAP ER PO SCH (08:33)
[2017-03-11] MEDS ORDERED: fentaNYL DRIP 250 ML IV SCH (10:45)
[2017-03-11] MEDS ORDERED: ROCURONIUM INJ 50 MG/5 ML VIAL IV ONE (11:00)
[2017-03-11] MEDS ORDERED: fentaNYL CITRATE 250 MCG/5 ML AMP IV PUSH ONE (11:00)
--- NOTE | 2017-03-11 11:00 | HHI.CCPN ---
Subjective Remarks/Hospital Course Patient is a 72-year-old chronically ill debilitated female with history of COPD on home oxygen, pneumonia, diastolic heart failure, COPD on chronic home O2 who presented to the emergency department with shortness of breath. She was recently discharged from [facility] after admission for pneumonia and was at [facility] for Rehab. Patient was dyspneic with crackles on the chest and 70% oxygen saturation. care home placed her on 50% Ventimask without improvement and EMS was contacted. EMS initiated on CPAP with improvement of O2 saturation to 90s. In emergency department patient was found in acute distress and was placed on BiPAP, given DuoNeb 3 and 80 mg of Lasix IV. ABG just after patient was placed on BiPAP shows respiratory acidosis with pH 7.19, PCO2 109, PO2 88. WBC was elevated at 15.1 with left shift. Lactic acid slightly elevated at 2.5. Patient was empirically covered with vancomycin and Zosyn for possible HCAP I evaluated the patient in the ED. Currently remains on BiPAP symptomatically slightly improved but still has labored breathing and diffuse crackles. Patient would like to try to avoid intubation if possible and son concurs with her decision. She want to continue to be a full code. Chest x-ray on my review did not show any acute infiltrates. I will continue breathing treatments and start IV Solu-Medrol 125 mg 1 and 60 mg IV every 8 hours. Broad -spectrum antibiotics coverage with Azactam. Updated patient and her son at the bedside. I informed him that if not steadily improving patient may need endotracheal intubation Subjective: 03/11: Early this a.m. the patient was noted to have acute blood loss anemia patients being transfused 1 unit of packed red blood cells. Patient was also noted to be hypokalemic and her calcium is being repleted. Objective Vital Signs Date Time Temp Pulse Resp B/P Pulse Ox O2 Delivery O2 Flow Rate FiO2 03/11/17 07:55 93 50 03/11/17 06:00 99 03/11/17 04:00 99.3 18 100/54 03/10/17 05:01 CPAP Intake and Output 03/10/17 03/10/17 03/11/17 08:00 16:00 00:00 Intake Total 153 ml 240 ml 653 ml Output Total 1550 ml 1300 ml 450 ml Balance -1397 ml -1060 ml 203 ml Result Diagram: 03/11/17 0530 03/11/17 0530 Other Results Laboratory Tests Test 03/10/17 03/11/17 12:45 05:08 Blood Gas Puncture Site RT RADIAL LT RADIAL Blood Gas Patient Temperature 98.6 98.6 Blood Gas HCO3 41 mmol/L 39 mmol/L (22-26) (22-26) Blood Gas Base Excess 14.8 mmol/L 13.3 mmol/L (-2-2) (-2-2) Blood Gas Oxygen Saturation 92 % (90-100) 95 % (90-100) Arterial Blood pH 7.35 7.35 (7.380-7.420) (7.380-7.420) Arterial Blood Partial 76 mmHg (38-42) 73 mmHg (38-42) Pressure CO2 Arterial Blood Partial 75 mmHg 96 mmHg Pressure O2 (61-120) (61-120) Arterial Blood Oxygen Content 10.4 Vol % 12.3 Vol % (12.0-20.0) (12.0-20.0) Arterial Blood 1.7 % (0-4) 1.5 % (0-4) Carboxyhemoglobin Arterial Blood Methemoglobin 1.3 % (0-2) 1.0 % (0-2) Blood Gas Hemoglobin 7.9 G/DL 9.1 G/DL (12.0-16.0) (12.0-16.0) Oxygen Delivery Device BIPAP BIPAP Blood Gas Ventilator Setting IPAP+14/EPAP+5 IPAP14/EPAP5/R15 Blood Gas Inspired Oxygen 50 % 50 % Imaging CXR No acute findings Objective Remarks GENERAL: Chronically ill-appearing and debilitated elderly female, who is on BiPAP appears acutely critically ill, minimally responsive SKIN: Warm/dry. HEAD: Normocephalic. EYES: No scleral icterus. No injection or drainage. ENT: Mucous membranes moist. NECK: Supple CARDIOVASCULAR: Regular rate and rhythm. No murmur appreciated. RESPIRATORY: On BiPAP with diffuse crackles, rhonchi throughout bilateral lung lomas GASTROINTESTINAL: Abdomen soft, non-tender, nondistended. MUSCULOSKELETAL: No obvious deformities. 2+ edema in the bilateral lower extremities NEUROLOGICAL: Awake and alert. No focal deficits. Respiratory distress limits exam Urinary Catheter: Yes [place] insert reason: Measure Accurate Output Date of Insertion: Mar 10, 2017 A/P Assessment and Plan NEURO: History of seizure disorder - Will hold Neurontin secondary to lethargy this a.m., resume when clinically indicated - Watch for seizures, seizure precautions -Neurochecks per ICU protocol RESP: Acute hypoxemic and hypercarbic respiratory failure Acute COPD exacerbation Pneumonia - BiPAP 07/09, I/O 250%. Serial ABG's as indicated - I have informed the patient strong possibility of intubation today - DuoNeb every 4 hours scheduled and when necessary - IV Solu-Medrol 125 mg 1 and 60 mg IV every 8 hours - Continue Symbicort ,theophylline Spiriva - Empiric Azactam for bronchitis -ID consulted-worsening chest x-ray multiple allergies to antibiotics CV: Diastolic heart failure Pedal edema - Received 80 mg IV Lasix in the ED. Continue 20 mg IV Lasix every 12 - 03/10 2-D echo-ejection fraction less than 65%. No regional wall motion abnormalities. Grade 1 diastolic dysfunction. Moderate pulmonary hypertension (50-60 mmHg) -Obtain BNP GI: - Nothing by mouth and her clinical condition improves. IV Protonix : - Monitor renal function closely. - Continue Salinas catheter. -Diuretics on hold currently secondary to hypotension ID: - Empiric Azactam. F/U on blood and sputum culture HEME: -Monitor CBC, CMP -Transfuse 1 unit of packed red blood cells follow-up post transfusion CBC, and INR -Obtain Hemoccult ENDO: - Electrolyte replacement per protocol -Potassium chloride 40 mEq -Glucose monitoring per ICU protocol PROPH: - Bilateral lower extremity SCDs. Lovenox 40 mg subcutaneous daily. IV Protonix 40 mg daily LINES: - Utilize peripheral IVs, central line if needed Dispo: Patient and son indecisive/ ambivalent regarding possible intubation. Palliative care team consulted for decisions regarding of goals of care. 03/11: Attempts made to contact son Brent Jenkins POA [phone] this am to update him on her medical status and clarify goals. Unable to contact. This patient remains critically ill with one or more organ systems which are or may become a threat to life. I have spent in excess of 34 minutes discontinuously in the care and management of this patient. This time is exclusive of procedures, and includes, but is not limited to, evaluation of the patient, review of the medical record, discussions with family, consultants, nursing staff, or respiratory therapy, and documentation in the medical record. Physician Lee Ann Valenzuela MD Mar 11, 2017 11:00
[2017-03-11] MEDS ORDERED: ETOMIDATE 20 MG/10 ML VIAL IV PUSH ONE (12:00)
[2017-03-11] MEDS ORDERED: DEXTROSE 50% IN WATER 50 ML VIAL(D50) IV PRN (15:15)
[2017-03-11] MEDS ORDERED: GLUCAGON 1 MG/ML VIAL OTHER PRN (15:15)
[2017-03-11] MEDS: INSULIN ASPART SUPPLEMENTAL SCALE SQ SCH ×2 (16:00→21:00)
--- NOTE | 2017-03-11 16:59 | PD.CONS ---
History of Present Illness Service Infectious disease Consult Requested By Dr Olson Reason for Consult Evaluate patient with possible pneumonia, has multiple antibiotic allergies Primary Care Physician Unknown Diagnoses: History of Present Illness Patient seen and examined. Records reviewed. Patient is a 72-year-old female, with oxygen dependent COPD, brought into the hospital from a rehabilitation facility for evaluation of worsening shortness of breath. She was apparently recently hospitalized at [facility] with COPD exacerbation, and was treated for pneumonia. She was discharged to a [facility] for rehabilitation. Patient states that in the last 5 days she's been getting short of breath, and she was placed on BiPAP. She was not improving and was getting more short of breath so she was taken to the hospital for further evaluation and treatment. She complains of some left-sided chest pain. She states that she is not really coughing much. There's been no fever or chills. Her initial white count was 15,000. Her chest x-ray shows chronic fibrosis with no acute infiltrates. Patient currently is short of breath and is on a BiPAP mask. There is multiple antibiotic allergies including cephalosporins, quinolones, and Zithromax. Patient is not sure about her reaction but states some rash with Keflex. Infectious disease consultation has been requested to evaluate the patient. Review of Systems Constitutional: COMPLAINS OF: Fatigue, DENIES: Fever, Chills Eyes: DENIES: Eye pain Ears, nose, mouth, throat: DENIES: Nasal discharge, Oral lesions, Throat pain, Ear Pain, Running Nose Respiratory: COMPLAINS OF: Shortness of breath, DENIES: Cough, Hemoptysis, Sputum production Cardiovascular: COMPLAINS OF: Chest pain, Palpitations, Dyspnea on Exertion Gastrointestinal: COMPLAINS OF: Constipation, DENIES: Abdominal pain, Diarrhea , Nausea, Vomiting, Difficulty Swallowing Genitourinary: DENIES: Dysuria, Nocturia Musculoskeletal: DENIES: Joint pain, Joint Swelling Integumentary: DENIES: Rash Psychiatric: DENIES: Hallucinations Past Family Social History Allergies: Coded Allergies: Betadine (Verified Allergy, Severe, EDEMA, SKIN BREAKDOWN, 08/13/16) Cephalosporins (Verified Allergy, Severe, YEAAST INFECT., 08/13/16) Cipro (Verified Allergy, Severe, GENERALIZED NUMBNESS, BREATHING PROBLEMS , 08/13/16) Contrast Media (Verified Allergy, Severe, HIVES, CARDIAC ARREST, 08/13/16) Iodine (Verified Allergy, Severe, SWELLING, SKIN BREAKDOWN, 08/13/16) Keflex (Verified Allergy, Severe, 08/13/16) Levaquin (Verified Allergy, Severe, NUMBNESS, SHORTNESS OF BREATH, 08/13/16) Zithromax (Verified Allergy, Severe, 08/13/16) Morphine (Verified Allergy, Mild, ITCHING, 08/13/16) PATIENT STARTED ITCHING AFTER SECOND DOSE OF MORPHINE, NO HIVES OR DIFFICULTY BREATHING NOTED. NURSE GOING TO CALL MD FOR ALVARADO ORDER PATIENT REFUSED IT. Barium Sulfate (Verified Allergy, Unknown, ITCHING AFTER ONE CUP E-Z CAT DRY, 08/13/16) Past Medical History COPD on home oxygen Diastolic heart failure Past history of seizure Anxiety Past Surgical History Appendectomy Cataract surgery Partial hysterectomy Left salpingo-oophorectomy Active Ordered Medications Tylenol [place] Diamox Albuterol Azactam Symbicort Cholecalciferol Cardizem Lovenox Fentanyl Ferrous sulfate Flonase Insulin Solu-Medrol Protonix Theophylline Spiriva Zanaflex Family History Not known Social History Ex-smoker, quit 5 years ago Has been in the rehabilitation facility probably in the last 2 weeks No alcohol abuse No illicit drugs Physical Exam Vital Signs Vital Signs Date Time Temp Pulse Resp B/P Pulse Ox O2 Delivery O2 Flow Rate FiO2 03/11/17 15:50 95 50 03/11/17 14:00 95 03/11/17 12:35 94 50 03/11/17 12:00 99.5 91 105/56 95 03/11/17 12:00 91 03/11/17 10:00 91 03/11/17 08:00 99.1 97 104/51 93 03/11/17 08:00 97 03/11/17 07:55 93 50 03/11/17 06:00 99 03/11/17 04:14 96 50 03/11/17 04:00 96 03/11/17 04:00 99.3 96 18 100/54 95 03/11/17 02:00 100 03/11/17 01:12 98 50 03/11/17 00:00 99.0 97 29 92/53 97 03/11/17 00:00 97 03/10/17 22:00 94 03/10/17 21:07 95 50 03/10/17 20:00 98 03/10/17 20:00 99.5 98 20 107/58 85 03/10/17 18:00 88 Physical Exam GENERAL: Patient is a well-nourished, well-developed CF, awake and alert, on BIPAP mask, SOB at rest SKIN: Warm and dry. No generalized rash, no ecchymoses and no evidence of embolic lesions. HEAD: Atraumatic. Normocephalic. No temporal wasting, or tenderness. EYES: [place] conjunctiva. No petechia or hemorrhage. Pupils equal, round and reactive to light. Extraocular movements full and intact. No scleral icterus. No injection or drainage. EARS, NOSE AND THROAT: Nose without bleeding or purulent nasal discharge. Mucous membranes moist. Has BIPAP mask NECK: Trachea midline. Supple and not tender, no meningeal signs CARDIOVASCULAR: Regular rate and rhythm. No murmurs, rubs or gallops heard RESPIRATORY: Diffuse rhonchi ABDOMEN: Soft, non-tender, nondistended. Bowel sounds present and normoactive. No guarding. No rebound. No organomegaly. EXTREMITIES: No clubbing, cyanosis, no joint effusion, has good ROM. No calf tenderness. Well perfused and warm. Has pitting edema both feet NEUROLOGICAL: Awake and alert. Moves all extremities. PSYCHIATRIC: Normal affect, calm and cooperative. LINE: No evidence of infection Laboratory Laboratory Tests Test 03/11/17 03/11/17 03/11/17 03/11/17 05:08 05:30 07:55 08:00 Blood Gas Puncture Site LT RADIAL Blood Gas Patient Temperature 98.6 Blood Gas HCO3 39 Blood Gas Base Excess 13.3 Blood Gas Oxygen Saturation 95 Arterial Blood pH 7.35 Arterial Blood Partial 73 Pressure CO2 Arterial Blood Partial 96 Pressure O2 Arterial Blood Oxygen Content 12.3 Arterial Blood 1.5 Carboxyhemoglobin Arterial Blood Methemoglobin 1.0 Blood Gas Hemoglobin 9.1 Oxygen Delivery Device BIPAP Blood Gas Ventilator Setting IPAP14/EPAP5/R15 Blood Gas Inspired Oxygen 50 White Blood Count 8.8 Red Blood Count 2.31 Hemoglobin 6.7 Hematocrit 20.8 Mean Corpuscular Volume 90.0 Mean Corpuscular Hemoglobin 29.1 Mean Corpuscular Hemoglobin 32.3 Concent Red Cell Distribution Width 15.9 Platelet Count 206 Mean Platelet Volume 7.9 Neutrophils (%) (Auto) 96.0 Lymphocytes (%) (Auto) 1.8 Monocytes (%) (Auto) 2.2 Eosinophils (%) (Auto) 0.0 Basophils (%) (Auto) 0.0 Neutrophils # (Auto) 8.4 Lymphocytes # (Auto) 0.2 Monocytes # (Auto) 0.2 Eosinophils # (Auto) 0.0 Basophils # (Auto) 0.0 CBC Comment AUTO DIFF Differential Total Cells 100 Counted Neutrophils % (Manual) 86 Band Neutrophils % 8 Lymphocytes % 3 Monocytes % 3 Neutrophils # (Manual) 8.3 Differential Comment FINAL DIFF MANUAL Platelet Estimate NORMAL Platelet Morphology Comment NORMAL Sodium Level 138 Potassium Level 2.8 Chloride Level 91 Carbon Dioxide Level 41.6 Anion Gap 5 Blood Urea Nitrogen 29 Creatinine 0.78 Estimat Glomerular Filtration 72 Rate Random Glucose 130 Calcium Level 8.2 Total Bilirubin 0.3 Aspartate Amino Transf 7 (AST/SGOT) Alanine Aminotransferase 14 (ALT/SGPT) Alkaline Phosphatase 96 Total Protein 6.1 Albumin 2.3 Blood Type O POSITIVE O POSITIVE Antibody Screen NEGATIVE Crossmatch Leukocyte-Reduced Red Blood Cells Blood Bank Comment Date/Time Procedure Status Source Growth 03/10/17 01:20 Aerobic Blood Culture - Preliminary Resulted Blood Peripheral NO GROWTH IN 1 DAY 03/10/17 01:20 Anaerobic Blood Culture - Preliminary Resulted Blood Peripheral NO GROWTH IN 1 DAY Result Diagram: 03/11/17 0530 03/11/17 0530 Imaging RADIOLOGY STUDIES/FILMS REVIEWED Last Impressions Chest X-Ray 03/11/17 0600 Signed Impressions: Service Date/Time: Saturday, March 11, 2017 03:35 - CONCLUSION: Increasing consolidation in the left lower lobe. Adi Benitez MD Assessment and Plan Assessment and Plan IMPRESSION COPD exacerbation, patient with O2 dependent COPD - clinically looks more of exacerbation than PNA Multiple Abx allergies Anemia RECOMMENDATION Stop Vanco Continue Azactam for now Rx COPD exacerbation Palliative medicine evaluating patient and goals of care Monitor progress I will follow along with you Thank you for this consultation Discussed Condition With D/W RN Sheila Byrd MD Mar 11, 2017 16:59
--- NOTE | 2017-03-11 18:29 | RADRPT ---
EXAM DATE/TIME: 03/11/2017 17:26 1 [facility] COMPARISON: CHEST SINGLE AP, March 11, 2017, 3:35. INDICATIONS : Abdominal pain, evaluate for gastrointestinal bleeding. ORAL CONTRAST: No oral contrast ingested. RADIATION DOSE: 11.25 CTDIvol (mGy) MEDICAL HISTORY : Seizures. Chronic obstructive pulmonary disease. SURGICAL HISTORY : Hysterectomy. ENCOUNTER: Subsequent ACUITY: 2 days PAIN SCALE: 6/10 LOCATION: abdomen TECHNIQUE: Volumetric scanning of the abdomen and pelvis was performed. Using automated exposure control and ad justment of the mA and/or kV according to patient size, radiation dose was kept as low as reasonably achievable to obtain optimal diagnostic quality images. DICOM format image data is available electro nically for review and comparison. FINDINGS: LOWER LUNGS: There is consolidation in the lung bases, left worse than right and a small volume of pleural fluid p resent. LIVER: Homogeneous density without lesion. There is no dilation of the biliary tree. The gallbladder is mil dly distended with some dependent density which is likely sludge. There is a focus of density along t he nondependent fundus region which may be some wall adherent sludge or gallbladder wall mass. No shankar dence of pericholecystic inflammatory change or fluid.. SPLEEN: Normal size without lesion. PANCREAS: Within normal limits. KIDNEYS: Normal in size and shape. There is no mass, stone, or hydronephrosis. ADRENAL GLANDS: Within normal limits. VASCULAR: Prominent atherosclerotic changes. Slight distal aortic ectasia. BOWEL/MESENTERY: Prominent colonic diverticulosis. No abnormal dilatation, wall thickening or inflammatory changes. No free peritoneal fluid. ABDOMINAL WALL: Within normal limits. RETROPERITONEUM: There is no lymphadenopathy. BLADDER: Decompressed with Salinas catheter. REPRODUCTIVE: Within normal limits. INGUINAL: There is no lymphadenopathy or hernia. MUSCULOSKELETAL: Within normal limits for patient age. CONCLUSION: Basilar lung consolidation and effusion. Abnormal gallbladder appearance, nonacute. Colonic diverticulosis. Abelino Champagne MD on March 11, 2017 at 18:22 Board Certified Radiologist. This report was verified electronically.
[2017-03-11 19:33] LABS: HEMATOCRIT 29.1 % (35.0-46.0); MEAN CELL VOLUME 87.4 FL (80.0-100.0); MEAN CORPUSCULAR HEMOGLOBIN 29.9 PG (27.0-34.0); MEAN CORPUSCULAR HGB CONC 34.3 % (32.0-36.0); PLATELET COUNT 222 TH/MM3 (150-450); RED BLOOD COUNT 3.34 MIL/MM3 (4.00-5.30); RED CELL DISTRIBUTION WIDTH 15.4 % (11.6-17.2); WHITE BLOOD COUNT 8.5 TH/MM3 (4.0-11.0)
[2017-03-11 19:35] LABS: REVIEW FLAG FINAL
[2017-03-11 19:37] LABS: INTERNATIONAL NORMALIZED RATIO 0.9 RATIO; PROTHROMBIN TIME - PATIENT 9.7 SEC (9.8-11.6)
[2017-03-11 20:21] LABS: BICARBONATE 39.9 MEQ/L (21.0-32.0)
[2017-03-11 20:30] LABS: POTASSIUM 2.8 MEQ/L (3.5-5.1)
[2017-03-11] MEDS ORDERED: POTASSIUM CHLORIDE 20 MEQ CONTROLLED RELEASE TAB PO ONE (21:00)
[2017-03-11] MEDS: POTASSIUM CHLOR 10 MEQ PREMIX 100 ML IV SCH ×2 (21:15→23:53)
--- NOTE | 2017-03-11 22:13 | PD.CONS ---
Consult Service Palliative Care Consult Requested By Dr Olson . Primary Care Physician Unknown Reason for Consultation a. To assist with evaluation and management of symptoms including: dyspnea, anxiety b. To assist medical decision maker(s) with: better understanding of current medical conditions; weighing benefits/burdens of medical treatment options; making medical treatment decisions. 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 She was recently admitted/discharged from [facility] for pneumonia. She want to [facility] following that admission. retail shift supervisor staff noted her to be dyspneic, with crackles, O2 sats in 70s, no improvement w Ventimask use. EMS notified, they found pt hypoxic, w crackles, alert and oriented. On CPAP per EMS, O2 sats up to 90s. Pt also reported increase phlegm x 24 hrs, no fever or chills. * ED course: given DuoNeb 3 , Lasix IV. ABG after patient was placed on BiPAP = respiratory acidosis with pH 7.19, PCO2 109, PO2 88. WBC was elevated at 15.1. Lactic acid slightly elevated at 2.5. started on vancomycin and Zosyn for possible HCAP * critical care spoke w pt in ED, noted pt wanted to try to avoid intubation, son agreed at that time. planned to cont steroids, nebulizers, abx. Critical notes discussed may require intubation if not improving. * 03/11/17 anemic- Hgb 6.7 transfused 1 u RBC . Pt still dyspneic, + crackles. Palliative care consulted to assist with clarification of goals of treatment. Pt seen in room, on bipap w primary nurse at bedside. She is alert, oriented appropriate. Visibly short of breath at rest and worsened with conversation. RN assist to remove bipap for a few minutes to allow her to speak, take PO meds. Met w pt, see fam conference for detail. D/w primary nurse, critical care MD Dr Olson . Function/Cognitive Trajectory most recently in rehab following acute hospitalization for pneumonia. prior to that lived at home Review of Systems Constitutional: COMPLAINS OF: Fatigue, DENIES: Change in appetite, Pain, Generalized weakness Eyes: DENIES: Vision loss Ears, nose, mouth, throat: DENIES: Throat pain Respiratory: COMPLAINS OF: Cough, Wheezing, Sputum production, Shortness of breath Cardiovascular: COMPLAINS OF: Dyspnea on Exertion, DENIES: Chest pain, Palpitations Gastrointestinal: COMPLAINS OF: Constipation (intermittent ), DENIES: Abdominal pain, Diarrhea, Nausea, Vomiting Genitourinary: DENIES: Urinary incontinence Musculoskeletal: DENIES: Joint pain Neurologic: DENIES: Headache Psychiatric: COMPLAINS OF: Anxiety Past Family Social History Coded Allergies: Betadine (Verified Allergy, Severe, EDEMA, SKIN BREAKDOWN, 08/13/16) Cephalosporins (Verified Allergy, Severe, YEAAST INFECT., 08/13/16) Cipro (Verified Allergy, Severe, GENERALIZED NUMBNESS, BREATHING PROBLEMS , 08/13/16) Contrast Media (Verified Allergy, Severe, HIVES, CARDIAC ARREST, 08/13/16) Iodine (Verified Allergy, Severe, SWELLING, SKIN BREAKDOWN, 08/13/16) Keflex (Verified Allergy, Severe, 08/13/16) Levaquin (Verified Allergy, Severe, NUMBNESS, SHORTNESS OF BREATH, 08/13/16) Zithromax (Verified Allergy, Severe, 08/13/16) Morphine (Verified Allergy, Mild, ITCHING, 08/13/16) PATIENT STARTED ITCHING AFTER SECOND DOSE OF MORPHINE, NO HIVES OR DIFFICULTY BREATHING NOTED. NURSE GOING TO CALL MD FOR ALVARADO ORDER PATIENT REFUSED IT. Barium Sulfate (Verified Allergy, Unknown, ITCHING AFTER ONE CUP E-Z CAT DRY, 08/13/16) Past Medical History Arthritis Asthma Anxiety Depression DIASTOLIC DYSFUNCTION high Cholesterol COPD -3L NC x a few years NOCTURNAL SEIZURES YEARS AGO . Past Surgical History ACDF 2011 appendectomy bilateral cataracts UTERINE SUSP., LAPAROSCOPY LEFT SALPINGO OOPHORECTOMY Hysterectomy (PARTIAL) . Reported Medications Theophylline ER 12 HR (Theophylline) 300 Mg Tab 300 Mg PO Q12H Nystatin Liq 100,000 unit/ml Susp 5 Ml SWISH-SWAL QID Acidophilus (Lactobacillus) 1 Mg Wafr Gentamicin Sulfate 5 Gm Powder 160 Mg IV PUSH DAILY Ferrous Sulfate 325 Mg (65 Mg Iron) Tablet 325 Mg PO DAILY Duoneb (Ipratropium-Albuterol Neb) 0.5-2.5 Mg/3 Ml Neb 1 Nebule INH Q6HR NEB Colace (Docusate Sodium) 100 Mg Capsule Cardizem LA (Diltiazem ER 24 HR) 360 Mg Na 360 Mg PO DAILY Calcium Carbonate 1,250 Mg Tab 1,250 Mg PO BID 1,250 mg calcium carbonate (500 mg elemental calcium) Acetazolamide 250 Mg Tab 250 Mg PO DAILY Prednisone 5 Mg Tab 5 Mg PO BID Vitamin D-3 (Cholecalciferol) 2,000 Unit Tab 1 Tab PO DAILY Tramadol (Tramadol HCl) 50 Mg Tab 50 Mg PO Q4H PRN Fluticasone Nasal [place] 50 Mcg/Act Naspr 50 Mcg EACH NARE BID 50 mcg/spray Symbicort Inh (Budesonide/Formoterol Fumarate) 160-4.5 Mcg/Act Aero 1 Puff INH Q12HR Torsemide 20 Mg Tab 20 Mg PO DAILY Tizanidine (Tizanidine HCl) 2 Mg Tab 2 Mg PO TID Alendronate (Alendronate Sodium) 70 Mg Tab 70 Mg PO Q7D Omeprazole 20 Mg Tab 20 Mg PO DAILY Gabapentin 600 Mg Tab 600 Mg PO QID Hydrocodone-Acetaminophen 7.5-325 mg Tab 1 Tab PO Q6H PRN . Current Medications Medications (Trade) Dose Ordered Sig/Isaac Route Start Time Stop Time Status Last Admin (NS Flush) 2 ml UNSCH PRN IVF 03/10/17 01:15 (Tylenol) 650 mg Q6H PRN PO 03/10/17 04:00 (Peridex 0.12% Liq) 15 ml BID@08,20 MT 03/10/17 08:00 03/11/17 21:15 (Protonix Inj) 40 mg DAILY IV 03/10/17 09:00 03/11/17 08:32 (Lovenox Inj) 40 mg Q24H SQ 03/10/17 04:00 03/11/17 05:09 Miscellaneous Information 1 Q361D XX 03/10/17 04:00 03/10/17 06:00 (Chlorhexidine 2% Cloth) 3 pack Taper DAILY@04 TOP 03/10/17 04:00 03/06/18 03:59 03/11/17 04:00 Chlorhexidine Gluconate 3 pack 3 pack UNSCH PRN TOP 03/10/17 04:00 (Azactam Inj/NS Inj) 100 ml @ 200 mls/hr Q8H IV 03/10/17 04:00 03/11/17 21:14 (SoluMEDROL INJ) 60 mg Q8HR IV PUSH 03/10/17 06:00 03/11/17 21:16 (Diamox) 250 mg DAILY PO 03/10/17 09:00 03/10/17 11:45 (Symbicort 160-4.5 Inh) 1 puff Q12HR INH 03/10/17 09:00 03/11/17 21:15 (Cardizem Cd) 360 mg DAILY PO 03/10/17 09:00 03/10/17 09:35 (Ferrous Sulfate) 325 mg DAILY PO 03/10/17 09:00 03/11/17 08:31 (Flonase Alejandro Spr) 1 spray BID EACH NARE 03/10/17 09:00 03/11/17 21:15 (Neurontin) 600 mg QID PO 03/10/17 09:00 Hold 03/11/17 08:31 ([place] 7.5-325 Mg) 1 tab Q6H PRN PO 03/10/17 04:15 (Deltasone) 5 mg BID PO 03/10/17 09:00 Hold (Theochron) 300 mg Q12H PO 03/10/17 04:15 03/11/17 16:41 (Zanaflex) 2 mg DAILY@09,14,21 PO 03/10/17 09:00 03/11/17 21:16 (Demadex) 20 mg DAILY PO 03/10/17 09:00 Hold (Vitamin D3) 1,000 units DAILY PO 03/10/17 09:00 03/11/17 08:31 (Lasix Inj) 20 mg BID@09,18 IV PUSH 03/10/17 09:00 Hold 03/10/17 09:34 Tiotropium [place] 18 mcg 18 mcg DAILY INH 03/10/17 09:00 (fentaNYL DRIP) 250 ml @ 0 mls/hr TITRATE IV 03/11/17 10:45 (D50w (Vial) Inj) 50 ml UNSCH PRN IV 03/11/17 15:15 Glucagon 1 mg 1 mg UNSCH PRN OTHER 03/11/17 15:15 (KCl 10 Meq Premix Inj) 100 ml @ 100 mls/hr Q1H IV 03/11/17 21:00 03/11/17 23:59 03/11/17 21:15 Family History Per EMR sister with diabetes . Substance Use Tobacco: former smoker, quit years ago Alcohol:none Prescription med abuse: none Illicits:none . Psychosocial History . Also supported by one son. Health Care Surrogate: Copy in medical record Date completed: 03/11/17 Health Care Surrogate(s): Named son Brent As HCS Ethical and Legal Issues Pt currently a&O, appropriate, able to make her own decisions. She completed HCS today, naming her son Brent as HCS. . Physical Exam Vital Signs Date Time Temp Pulse Resp B/P Pulse Ox O2 Delivery O2 Flow Rate FiO2 03/11/17 20:00 101 03/11/17 20:00 99.6 101 18 113/55 91 03/11/17 19:14 99.5 95 19 108/58 99 03/11/17 19:10 99.1 100 18 102/55 94 03/11/17 18:30 94 50 03/11/17 18:00 105 03/11/17 16:00 99 03/11/17 16:00 99.3 99 117/58 96 03/11/17 15:50 95 50 03/11/17 14:00 95 03/11/17 12:35 94 50 03/11/17 12:00 99.5 91 105/56 95 03/11/17 12:00 91 03/11/17 10:00 91 03/11/17 08:00 99.1 97 104/51 93 03/11/17 08:00 97 03/11/17 07:55 93 50 03/11/17 06:00 99 03/11/17 04:14 96 50 03/11/17 04:00 96 03/11/17 04:00 99.3 96 18 100/54 95 03/11/17 02:00 100 03/11/17 01:12 98 50 03/11/17 00:00 99.0 97 29 92/53 97 03/11/17 00:00 97 03/10/17 22:00 94 03/10/17 03/11/17 18:59 06:59 Intake Total 240 ml 856 ml Output Total 1300 ml 800 ml Balance -1060 ml 56 ml Intake Oral 10 ml IV Total 230 ml 756 ml Albumin 100 ml Output Urine Total 1300 ml 800 ml # Bowel Movements 0 0 Exam CONSTITUTIONAL/GENERAL: This is an adequately nourished patient, visibly short of breath, worsens with conversation TUBES/LINES/DRAINS:Peripheral IV bilateral upper extremities, BiPAP mask, [place] catheter, SKIN: No jaundice, rashes, or lesions. No wounds seen anteriorly. Skin temperature appropriate. Not diaphoretic. HEAD: Atraumatic. Normocephalic. EYES: Pupils equal and round and reactive. Extraocular motions intact. No scleral icterus. No injection or drainage. Fundi not examined. ENT: Hearing grossly normal. Nose without bleeding or purulent drainage. Limited oropharynx exam due to BiPAP. Mucous membranes dry, no visible exudates. NECK: Trachea midline. Supple, nontender. No palpable thyroid enlargement or nodularity. CARDIOVASCULAR: Regular rate and rhythm without murmurs, mildly tachycardic 105. No JVD. Peripheral pulses symmetric. RESPIRATORY/CHEST: Symmetric, mildly labored respirations. +crackles, course rhonchi . Breath sounds equal bilaterally. GASTROINTESTINAL: Abdomen soft, round/obese, non-tender, nondistended. No hepato -splenomegaly, or palpable masses. No guarding. Bowel sounds present. GENITOURINARY: Without palpable bladder distension. [place] catheter in place. MUSCULOSKELETAL: Extremities without clubbing, cyanosis, or edema. No joint tenderness or effusion noted. No mottling or clubbing. LYMPHATICS: No palpable cervical or supraclavicular adenopathy. NEUROLOGICAL: Awake and alert, oriented 3. Appropriate. Appears to have reasonable insight. Motor and sensory grossly within normal limits. Follows commands. Moves all 4 extremities. PSYCHIATRIC: + Mild anxiety evident w/ discussions regarding goals, tachypneic Diagnostic Tests Laboratory Laboratory Tests Test 03/10/17 03/10/17 03/10/17 03/10/17 01:15 01:35 02:08 04:35 White Blood Count 15.5 TH/MM3 (4.0-11.0) Red Blood Count 3.07 MIL/MM3 (4.00-5.30) Hemoglobin 8.8 GM/DL (11.6-15.3) Hematocrit 28.0 % (35.0-46.0) Mean Corpuscular Volume 91.4 FL (80.0-100.0) Mean Corpuscular Hemoglobin 28.6 PG (27.0-34.0) Mean Corpuscular Hemoglobin 31.3 % Concent (32.0-36.0) Red Cell Distribution Width 15.9 % (11.6-17.2) Platelet Count 261 TH/MM3 (150-450) Mean Platelet Volume 8.5 FL (7.0-11.0) Neutrophils (%) (Auto) 93.5 % (16.0-70.0) Lymphocytes (%) (Auto) 2.2 % (9.0-44.0) Monocytes (%) (Auto) 2.9 % (0.0-8.0) Eosinophils (%) (Auto) 0.0 % (0.0-4.0) Basophils (%) (Auto) 1.4 % (0.0-2.0) Neutrophils # (Auto) 14.5 TH/MM3 (1.8-7.7) Lymphocytes # (Auto) 0.3 TH/MM3 (1.0-4.8) Monocytes # (Auto) 0.5 TH/MM3 (0-0.9) Eosinophils # (Auto) 0.0 TH/MM3 (0-0.4) Basophils # (Auto) 0.2 TH/MM3 (0-0.2) CBC Comment DIFF FINAL Differential Comment Prothrombin Time 9.5 SEC (9.8-11.6) Prothromb Time International 0.9 RATIO Ratio Activated Partial 24.7 SEC Thromboplast Time (24.3-30.1) Sodium Level 133 MEQ/L (136-145) Potassium Level 4.2 MEQ/L (3.5-5.1) Chloride Level 89 MEQ/L (98-107) Carbon Dioxide Level 35.6 MEQ/L (21.0-32.0) Anion Gap 8 MEQ/L (5-15) Blood Urea Nitrogen 24 MG/DL (7-18) Creatinine 0.88 MG/DL (0.50-1.00) Estimat Glomerular Filtration 63 ML/MIN (>89) Rate Random Glucose 155 MG/DL (74-106) Lactic Acid Level 2.5 mmol/L (0.4-2.0) Calcium Level 9.4 MG/DL (8.5-10.1) Magnesium Level 2.1 MG/DL (1.5-2.5) Total Bilirubin 0.3 MG/DL (0.2-1.0) Aspartate Amino Transf 21 U/L (15-37) (AST/SGOT) Alanine Aminotransferase 21 U/L (10-53) (ALT/SGPT) Alkaline Phosphatase 134 U/L (45-117) Troponin I LESS THAN 0.02 NG/ML (0.02-0.05) B-Type Natriuretic Peptide 87 PG/ML (0-100) Total Protein 7.1 GM/DL (6.4-8.2) Albumin 2.0 GM/DL (3.4-5.0) Lipase 130 U/L (73-393) Blood Gas Puncture Site RT RADIAL RT RADIAL Blood Gas Patient Temperature 98.6 98.6 Blood Gas HCO3 40 mmol/L 39 mmol/L (22-26) (22-26) Blood Gas Base Excess 11.7 mmol/L 11.9 mmol/L (-2-2) (-2-2) Blood Gas Oxygen Saturation 93 % (90-100) 89 % (90-100) Arterial Blood pH 7.19 7.27 (7.380-7.420) (7.380-7.420) Arterial Blood Partial 109 mmHg 89 mmHg (38-42) Pressure CO2 (38-42) Arterial Blood Partial 88 mmHG 62 mmHG Pressure O2 (61-120) (61-120) Arterial Blood Oxygen Content 12.3 Vol % 12.0 Vol % (12.0-20.0) (12.0-20.0) Arterial Blood 1.4 % (0-4) 1.3 % (0-4) Carboxyhemoglobin Arterial Blood Methemoglobin 0.8 % (0-2) 0.7 % (0-2) Blood Gas Hemoglobin 9.3 G/DL 9.5 G/DL (12.0-16.0) (12.0-16.0) Oxygen Delivery Device BIPAP BIPAP Blood Gas Ventilator Setting IPAP12/EPAP5 IPAP=12 EPAP=5 RR=20 Blood Gas Inspired Oxygen 40 % 45 % Urine Color YELLOW (YELLW/STRAW) Urine Turbidity CLEAR (CLEAR) Urine pH 5.5 (5.0-8.5) Urine Specific [place] 1.013 (1.002-1.035) Urine Protein 30 mg/dL (NEG-TRACE) Urine Glucose (UA) NEG mg/dL (NEG) Urine Ketones NEG mg/dL (NEG) Urine Occult Blood NEG (NEG) Urine Nitrite NEG (NEG) Urine Bilirubin NEG (NEG) Urine Urobilinogen LESS THAN 2.0 MG/DL (LESS THAN 2.0) Urine Leukocyte Esterase NEG (NEG) Urine RBC 5 /hpf (0-3) Urine WBC 3 /hpf (0-5) Urine Bacteria RARE /hpf (NONE) Urine Mucus FEW /lpf (OCC) Microscopic Urinalysis Comment CULT NOT INDICATED Test 03/10/17 03/10/17 03/10/17 03/11/17 04:45 06:10 12:45 05:08 Lactic Acid Level 1.5 mmol/L (0.4-2.0) Nasal Screen MRSA (PCR) MRSA NOT DETECTED (NOT DETECT) Blood Gas Puncture Site RT RADIAL LT RADIAL Blood Gas Patient Temperature 98.6 98.6 Blood Gas HCO3 41 mmol/L 39 mmol/L (22-26) (22-26) Blood Gas Base Excess 14.8 mmol/L 13.3 mmol/L (-2-2) (-2-2) Blood Gas Oxygen Saturation 92 % (90-100) 95 % (90-100) Arterial Blood pH 7.35 7.35 (7.380-7.420) (7.380-7.420) Arterial Blood Partial 76 mmHg (38-42) 73 mmHg (38-42) Pressure CO2 Arterial Blood Partial 75 mmHg 96 mmHg Pressure O2 (61-120) (61-120) Arterial Blood Oxygen Content 10.4 Vol % 12.3 Vol % (12.0-20.0) (12.0-20.0) Arterial Blood 1.7 % (0-4) 1.5 % (0-4) Carboxyhemoglobin Arterial Blood Methemoglobin 1.3 % (0-2) 1.0 % (0-2) Blood Gas Hemoglobin 7.9 G/DL 9.1 G/DL (12.0-16.0) (12.0-16.0) Oxygen Delivery Device BIPAP BIPAP Blood Gas Ventilator Setting IPAP+14/EPAP+5 IPAP14/EPAP5/R15 Blood Gas Inspired Oxygen 50 % 50 % Test 03/11/17 03/11/17 03/11/17 03/11/17 05:30 07:55 08:00 18:08 White Blood Count 8.8 TH/MM3 (4.0-11.0) Red Blood Count 2.31 MIL/MM3 (4.00-5.30) Hemoglobin 6.7 GM/DL (11.6-15.3) Hematocrit 20.8 % (35.0-46.0) Mean Corpuscular Volume 90.0 FL (80.0-100.0) Mean Corpuscular Hemoglobin 29.1 PG (27.0-34.0) Mean Corpuscular Hemoglobin 32.3 % Concent (32.0-36.0) Red Cell Distribution Width 15.9 % (11.6-17.2) Platelet Count 206 TH/MM3 (150-450) Mean Platelet Volume 7.9 FL (7.0-11.0) Neutrophils (%) (Auto) 96.0 % (16.0-70.0) Lymphocytes (%) (Auto) 1.8 % (9.0-44.0) Monocytes (%) (Auto) 2.2 % (0.0-8.0) Eosinophils (%) (Auto) 0.0 % (0.0-4.0) Basophils (%) (Auto) 0.0 % (0.0-2.0) Neutrophils # (Auto) 8.4 TH/MM3 (1.8-7.7) Lymphocytes # (Auto) 0.2 TH/MM3 (1.0-4.8) Monocytes # (Auto) 0.2 TH/MM3 (0-0.9) Eosinophils # (Auto) 0.0 TH/MM3 (0-0.4) Basophils # (Auto) 0.0 TH/MM3 (0-0.2) CBC Comment AUTO DIFF Differential Total Cells 100 Counted Neutrophils % (Manual) 86 % (16-70) Band Neutrophils % 8 % (0-6) Lymphocytes % 3 % (9-44) Monocytes % 3 % (0-8) Neutrophils # (Manual) 8.3 TH/MM3 (1.8-7.7) Differential Comment FINAL DIFF MANUAL Platelet Estimate NORMAL (NORMAL) Platelet Morphology Comment NORMAL (NORMAL) Sodium Level 138 MEQ/L (136-145) Potassium Level 2.8 MEQ/L (3.5-5.1) Chloride Level 91 MEQ/L (98-107) Carbon Dioxide Level 41.6 MEQ/L (21.0-32.0) Anion Gap 5 MEQ/L (5-15) Blood Urea Nitrogen 29 MG/DL (7-18) Creatinine 0.78 MG/DL (0.50-1.00) Estimat Glomerular Filtration 72 ML/MIN (>89) Rate Random Glucose 130 MG/DL (74-106) Calcium Level 8.2 MG/DL (8.5-10.1) Total Bilirubin 0.3 MG/DL (0.2-1.0) Aspartate Amino Transf 7 U/L (15-37) (AST/SGOT) Alanine Aminotransferase 14 U/L (10-53) (ALT/SGPT) Alkaline Phosphatase 96 U/L (45-117) Total Protein 6.1 GM/DL (6.4-8.2) Albumin 2.3 GM/DL (3.4-5.0) Blood Type O POSITIVE O POSITIVE Antibody Screen NEGATIVE Crossmatch Leukocyte-Reduced Red Blood Cells Blood Bank Comment B-Type Natriuretic Peptide 89 PG/ML (0-100) Test 03/11/17 03/11/17 18:15 18:35 Prothrombin Time 9.7 SEC (9.8-11.6) Prothromb Time International 0.9 RATIO Ratio White Blood Count 8.5 TH/MM3 (4.0-11.0) Red Blood Count 3.34 MIL/MM3 (4.00-5.30) Hemoglobin 10.0 GM/DL (11.6-15.3) Hematocrit 29.1 % (35.0-46.0) Mean Corpuscular Volume 87.4 FL (80.0-100.0) Mean Corpuscular Hemoglobin 29.9 PG (27.0-34.0) Mean Corpuscular Hemoglobin 34.3 % Concent (32.0-36.0) Red Cell Distribution Width 15.4 % (11.6-17.2) Platelet Count 222 TH/MM3 (150-450) Mean Platelet Volume 8.4 FL (7.0-11.0) Sodium Level 140 MEQ/L (136-145) Potassium Level 2.8 MEQ/L (3.5-5.1) Chloride Level 96 MEQ/L (98-107) Carbon Dioxide Level 39.9 MEQ/L (21.0-32.0) Anion Gap 4 MEQ/L (5-15) Blood Urea Nitrogen 30 MG/DL (7-18) Creatinine 0.70 MG/DL (0.50-1.00) Estimat Glomerular Filtration 82 ML/MIN (>89) Rate Random Glucose 131 MG/DL (74-106) Calcium Level 8.8 MG/DL (8.5-10.1) Result Diagram: 03/11/17 1835 03/11/17 1835 Microbiology Microbiology Date/Time Procedure Status Source Growth 03/10/17 01:15 Aerobic Blood Culture - Preliminary Resulted Blood Line NO GROWTH IN 1 DAY 03/10/17 01:15 Anaerobic Blood Culture - Preliminary Resulted Blood Line NO GROWTH IN 1 DAY 03/10/17 01:20 Aerobic Blood Culture - Preliminary Resulted Blood Peripheral NO GROWTH IN 1 DAY 03/10/17 01:20 Anaerobic Blood Culture - Preliminary Resulted Blood Peripheral NO GROWTH IN 1 DAY Imaging Last Impressions Abdomen/Pelvis CT 03/11/17 1517 Signed Impressions: Service Date/Time: Saturday, March 11, 2017 17:26 - CONCLUSION: Basilar lung consolidation and effusion. Abnormal gallbladder appearance, nonacute. Colonic diverticulosis. Abelino Champagne MD Chest X-Ray 03/11/17 0600 Signed Impressions: Service Date/Time: Saturday, March 11, 2017 03:35 - CONCLUSION: Increasing consolidation in the left lower lobe. Adi Benitez MD Patient/Family Conference Family Conference Location: Bedside Issues Discussed: Spoke w pt at bedside, no family present. RN at bedside for much of discussion.Conversation somewhat Limited by pt Bipap mask, dyspnea. Attempted to call son Brent per pt request, YANIQUE left. * Palliative care role, purpose, approach * brief review of medical history * Patient/family understanding of the current medical problems * Patient/family understanding of prognosis- review given recent pneumonia, COPD , o2 dependence, if intubated not known how long she would require mech vent or if/when she may wean off mech vent * Patients goals of care as best understood from advance directives and/or conversations and/or values * Current medical treatment options and benefits/burdens of those options; review of options for escalation w intubation pending pt condition/ abgs etc, vs comfort measures if her breathing , abgs etc worsen, treating her sx without further invasive interventions, which could result in her , review of hospice/comfort services. * Likely scenarios comparing ongoing aggressive care with a transition to comfort measures only * Questions answered to the best of my ability * legal decision makers- assisted her to complete HCS w RN witnessing * Palliative care contact information provided * VM left for son per pt request. Pt is a& ox3, reasonable insight. Appears to have very clear understanding when we discuss intubation vs no intubation and comfort measures. I reviewed that further dyspnea, clinical changes would be treated for symptoms, with medications for anxiety/pain/dyspnea. She indicates that she is afraid, she is "afraid to " but also afraid to go on the ventilator when she will no longer be able to communicate her wishes. She would go on the vent if it was known that it would quickly fix her problem but she does not want to end up with further problems 2/2 to vent or remain on the vent. She on one hand express that she wants DNR, and might be open to hospice if current conservative tx fail , however she does not wish to enact DNR or any other measures until she is able to speak to her son Brent. I tried to reach him while in room with her, VM left. Advise that as her condition changes she may need to make decision tonight without being able to speak w him. SHe is hopeful to reach him. Plan to follow up with her again tomorrow. Assessment and Plan Disease Oriented Problem List: (1) Acute respiratory failure with hypoxia (2) Acute exacerbation of chronic obstructive pulmonary disease (COPD) (3) Diastolic heart failure (4) Pneumonia Symptom Scale: (1) Dyspnea (2) Anxiety Pertinent Non-Medical Issues Psychosocial: Spiritual: Legal:Pt currently a&O, appropriate, able to make her own decisions. She completed HCS today, naming her son Brent as [facility]. Ethical issues impacting care: Important Contacts Son Brent [phone] (*named as [facility] 03/11/17) spouse Doc [phone] / [phone] Prognosis This pt with COPD was admitted for pneumonia. Of note, she has had recent hospitalization at [facility] for Pneumonia. She has COPD, O2 dependent for several years. Current medical treatment maximized. High risk for continues respiratory decline and need for intubation. High risk for complications, potential for prolonged mech ventilation if requires intubation 2/2 COPD. . Code Status: Full Code Plan * Legal decision maker: Pt currently a&O, appropriate, able to make her own decisions. She completed HCS today, naming her son Brent as [facility]. * GOALS: Pt is a& ox3, reasonable insight. Appears to have very clear understanding when we discuss intubation vs no intubation and comfort measures. I reviewed that further dyspnea, clinical changes would be treated for symptoms , with medications for anxiety/pain/dyspnea. She indicates that she is afraid, she is "afraid to " but also afraid to go on the ventilator when she will no longer be able to communicate her wishes. She would go on the vent if it was known that it would quickly fix her problem but she does not want to end up with further problems 2/2 to vent or remain on the vent. She on one hand express that she wants DNR, and might be open to hospice if current conservative tx fail, however she does not wish to enact DNR or any other measures until she is able to speak to her son Brent. I tried to reach him while in room with her, VM left. Advise that as her condition changes she may need to make decision tonight without being able to speak w him. She is hopeful to reach him. Plan to follow up with her again tomorrow. Left with main unit # so family could reach nurse/pt. * FULL CODE. *considering DNR, but wishes to speak w her son first. * SYMPTOMS: --dyspnea:admitted for hypoxia, SOB, chest CT =Basilar lung consolidation and effusion. If goals are aggressive, May require intubation. If goals comfort oriented would benefit from opiate; consider hydromorphone 0.51 mg IV every 3-4 hours prn dyspnea, in addition to benzodiazepine -- anxiety/depression- hx anxiety + depression. Anxiety worsens w dyspnea. Would benefit from low-dose lorazepam 0.25 or Xanax 0.25 prn * Palliative care will continue to follow during hospital course as condition evolves, to assist patient/decision-maker with understanding of medical conditions, weighing benefits/burdens of treatment options, for clarification of goals of treatment. Additionally will assist with any symptoms of palliative concern Time Spent Total Floor Time (mins): 45 Thank you for the opportunity to participate in the care of Ms. Stratton. Attestation To help prompt me to consider important information that might be impacting today's encounter and assessment, information from prior notes written by myself or my colleagues may have been "brought forward" into today's note. My signature on this note, however, is an attestation that I personally performed the exam, history, and/or decision-making noted today, and, unless otherwise indicated, the interactions with patient, family, and staff as well as the review of records all occurred today. I also attest that the listed assessment and stated plan reflect my best clinical judgment today based on the combination of historical information, prior notes, and today's exam/ interactions. When time spent is documented, it refers only to time spent today by the signer, or if indicated, combined time spent today by collaborating physician/nurse practitioner. Melanie Cervantes Mar 11, 2017 22:13
[2017-03-12] VITALS (20 sets, daily range): BP systolic 110–150; BP diastolic 55–72; PULSE 93–118; RESP 15–18; TEMP 98.3–100.4; O2SAT 91–98
[2017-03-12] MEDS: POTASSIUM CHLOR 10 MEQ PREMIX 100 ML IV SCH (02:32)
[2017-03-12] MEDS: CHLORHEXIDINE GLUCONATE 2 % 1 PACK (2 CLOTHS) TOP SCH (04:00)
[2017-03-12] MEDS: RESP: ALBUTEROL 2.5 MG/IPRATROPIUM 0.5 MG NEB (SCH) NEB ×6 (04:10→23:56)
[2017-03-12] MEDS: ENOXAPARIN SODIUM 40 MG/0.4 ML SYRINGE SQ SCH (04:20)
[2017-03-12] MEDS: THEOPHYLLINE ER 12 HR 300 MG TABCR PO SCH ×2 (04:20→15:31)
[2017-03-12] MEDS: AZTREONAM INJ 1,000 MG in SODIUM CHLORIDE 0.9% INJ 100 ML IV SCH ×3 (04:20→21:38)
[2017-03-12] MEDS: methylPREDNISolone SOD SUCC 125 MG/2 ML VIAL IV PUSH SCH ×3 (05:34→21:37)
[2017-03-12 06:39] LABS: MEAN CELL VOLUME 88.8 FL (80.0-100.0); MEAN CORPUSCULAR HEMOGLOBIN 29.2 PG (27.0-34.0); MEAN CORPUSCULAR HGB CONC 32.9 % (32.0-36.0); PLATELET COUNT 240 TH/MM3 (150-450); RED CELL DISTRIBUTION WIDTH 15.7 % (11.6-17.2); REVIEW FLAG FINAL; WHITE BLOOD COUNT 8.6 TH/MM3 (4.0-11.0)
[2017-03-12 06:50] LABS: BICARBONATE 35.3 MEQ/L (21.0-32.0); MAGNESIUM 2.4 MG/DL (1.5-2.5); POTASSIUM 3.7 MEQ/L (3.5-5.1)
[2017-03-12] MEDS: INSULIN ASPART SUPPLEMENTAL SCALE SQ SCH ×4 (07:00→21:00)
[2017-03-12] MEDS ORDERED: MAGNESIUM HYDROXIDE SUSP 30 ML CUP PO PRN (07:45)
[2017-03-12] MEDS ORDERED: BISACODYL 10 MG SUPP RECTAL PRN (07:45)
[2017-03-12] MEDS ORDERED: SENNOSIDES 8.6 MG TAB PO PRN (07:45)
[2017-03-12] MEDS ORDERED: LACTULOSE SYRUP 20 GM/30 ML CUP PO PRN (07:45)
--- NOTE | 2017-03-12 07:54 | HHI.CCPN ---
Subjective Remarks/Hospital Course Patient is a 72-year-old chronically ill debilitated female with history of COPD on home oxygen, pneumonia, diastolic heart failure, COPD on chronic home O2 who presented to the emergency department with shortness of breath. She was recently discharged from [facility] after admission for pneumonia and was at [facility] for Rehab. Patient was dyspneic with crackles on the chest and 70% oxygen saturation. correction placed her on 50% Ventimask without improvement and EMS was contacted. EMS initiated on CPAP with improvement of O2 saturation to 90s. In emergency department patient was found in acute distress and was placed on BiPAP, given DuoNeb 3 and 80 mg of Lasix IV. ABG just after patient was placed on BiPAP shows respiratory acidosis with pH 7.19, PCO2 109, PO2 88. WBC was elevated at 15.1 with left shift. Lactic acid slightly elevated at 2.5. Patient was empirically covered with vancomycin and Zosyn for possible HCAP I evaluated the patient in the ED. Currently remains on BiPAP symptomatically slightly improved but still has labored breathing and diffuse crackles. Patient would like to try to avoid intubation if possible and son concurs with her decision. She want to continue to be a full code. Chest x-ray on my review did not show any acute infiltrates. I will continue breathing treatments and start IV Solu-Medrol 125 mg 1 and 60 mg IV every 8 hours. Broad -spectrum antibiotics coverage with Azactam. Updated patient and her son at the bedside. I informed him that if not steadily improving patient may need endotracheal intubation Subjective: 03/11: Early this a.m. the patient was noted to have acute blood loss anemia patients being transfused 1 unit of packed red blood cells. Patient was also noted to be hypokalemic and her calcium is being repleted. 03/12: Patient still requiring BiPAP at this time, abdominal pain most likely secondary to constipation CT scan of the abdomen and pelvis negative yesterday. He plans to attempt high flow nasal cannula with diuresis and initiation of clear liquid diet. Objective Vital Signs Date Time Temp Pulse Resp B/P Pulse Ox O2 Delivery O2 Flow Rate FiO2 03/12/17 06:00 117 03/12/17 04:12 98 50 03/12/17 04:00 98.9 16 119/60 03/10/17 05:01 CPAP Intake and Output 8/02/1803/11/17 03/12/17 08:00 16:00 00:00 Intake Total 203 ml 718 ml 389 ml Output Total 350 ml 510 ml 850 ml Balance -147 ml 208 ml -461 ml Result Diagram: 03/12/17 0540 03/12/17 0540 Imaging CXR No acute findings Objective Remarks GENERAL: Chronically ill-appearing and debilitated elderly female, who is on BiPAP alert and responsive this a.m. SKIN: Warm/dry. HEAD: Normocephalic. EYES: No scleral icterus. No injection or drainage. ENT: Mucous membranes moist. NECK: Supple CARDIOVASCULAR: Regular rate and rhythm. No murmur appreciated. Noticed sinus tachycardia by telemetry RESPIRATORY: On BiPAP with diffuse crackles, rhonchi throughout bilateral lung lomas GASTROINTESTINAL: Abdomen soft, non-tender, nondistended. MUSCULOSKELETAL: No obvious deformities. 1+ edema in the bilateral lower extremities NEUROLOGICAL: Awake and alert. No focal deficits. Urinary Catheter: Yes Date of Insertion: Mar 10, 2017 A/P Assessment and Plan NEURO: History of seizure disorder - Will resume Neurontin its 100 mg decrease frequency to 3 times a day - Watch for seizures, seizure precautions -Neurochecks per ICU protocol RESP: Acute hypoxemic and hypercarbic respiratory failure Acute COPD exacerbation Pneumonia - BiPAP 07/09, I/O 250%. Serial ABG's as indicated - I have informed the patient strong possibility of intubation today - DuoNeb every 4 hours scheduled and when necessary - IV Solu-Medrol 125 mg 1 and 60 mg IV every 8 hours - Continue Symbicort ,theophylline Spiriva - CXR-bilateral lung consolidation left greater than right. Small amount of pleural fluid -ID following-Dr. Byrd -Attempt high flow nasal cannula CV: Diastolic heart failure Pedal edema - Received 80 mg IV Lasix in the ED. Continue 20 mg IV Lasix every 12 - 03/10 2-D echo-ejection fraction less than 65%. No regional wall motion abnormalities. Grade 1 diastolic dysfunction. Moderate pulmonary hypertension (50-60 mmHg) -Obtain BNP - Lasix 40 mg x 1 dose GI: Constipation - Nothing by mouth and her clinical condition improves. - IV Protonix -Bowel regimen - 03/11 CT abdomen-diverticulosis, no free air, nonacute abnormal gallbladder -03/12 Docusate suppository : - Monitor renal function closely. - Continue Salinas catheter ID: - Antibiotics per ID. - 03/10 blood and sputum culture- NGTD HEME: -Monitor CBC, CMP -03/11 2 u PRBC -Obtain Hemoccult ENDO: - Electrolyte replacement per protocol -Potassium chloride 40 mEq -Glucose monitoring per ICU protocol PROPH: - Bilateral lower extremity SCDs. Lovenox 40 mg subcutaneous daily. IV Protonix 40 mg daily LINES: - Utilize peripheral IVs, central line if needed Dispo: Patient and son indecisive/ ambivalent regarding possible intubation. Palliative care team consulted for decisions regarding of goals of care. 03/12: Discussed with Brent BALL [phone], and provided medical update Level 3 Physician Lee Ann Valenzuela MD Mar 12, 2017 07:54
[2017-03-12] MEDS: CHLORHEXIDINE 0.12% (ORAL KIT) 15 ML CUP MT SCH ×2 (08:00→20:00)
[2017-03-12] MEDS ORDERED: FUROSEMIDE 40 MG/4 ML VIAL IV PUSH ONE (08:00)
[2017-03-12 08:35] LABS: BLOOD GAS BASE EXCESS 8.6 mmol/L (-2-2); BLOOD GAS CARBOXYHEMOGLOBIN 1.3 % (0-4); BLOOD GAS HCO3 33 mmol/L (22-26); BLOOD GAS METHEMOGLOBIN 1.4 % (0-2); BLOOD GAS O2 HGB SATURATION 95 % (90-100); BLOOD GAS OXYGEN CONTENT 15.9 Vol % (12.0-20.0); BLOOD GAS PCO2 53 mmHg (38-42); BLOOD GAS PO2 89 mmHg (61-120); BLOOD GAS TOTAL HGB 11.9 G/DL (12.0-16.0); TEMP CORR TO 98.6
[2017-03-12 08:36] LABS: CRITICAL VALUE YES; DRAW SITE LT RADIAL; FIO2 50 %; NUMBER OF ARTERIAL PUNCTURES 1; OXYGEN DEVICE BIPAP; STAT NO; ULNAR PULSE Y; VENT SETTINGS 14/PEEP5/RATE15
[2017-03-12] MEDS: FLUTICASONE PROPIONATE 50 MCG/ACT 16 GM NASAL SPRAY EACH NARE SCH ×2 (08:38→21:38)
[2017-03-12] MEDS: BUDESONIDE-FORMOTEROL 160/4.5 MCG INHALER INH SCH ×2 (08:38→21:39)
[2017-03-12] MEDS: FERROUS SULFATE 325 MG (65 MG ELEMENTAL IRON) TAB PO SCH (08:38)
[2017-03-12] MEDS: PANTOPRAZOLE SODIUM 40 MG VIAL IV SCH (08:38)
[2017-03-12] MEDS: GABAPENTIN 300 MG CAP PO SCH ×3 (08:39→16:50)
[2017-03-12] MEDS: DOCUSATE SODIUM 50 MG/SENNA 8.6 MG TAB PO SCH ×2 (08:39→21:38)
[2017-03-12] MEDS: DILTIAZEM-CD 180 MG CAP ER PO SCH (08:39)
[2017-03-12] MEDS: acetaZOLAMIDE 250 MG TAB PO SCH (08:39)
[2017-03-12] MEDS: CHOLECALCIFEROL (VIT D3) 1000 UNIT TAB PO SCH (08:39)
[2017-03-12] MEDS ORDERED: ICU - SODIUM PHOSPHATE 30 MMOL/NS 250 ML IV ONE ×2 (09:00)
[2017-03-12] MEDS: TIOTROPIUM BROMIDE 18 MCG INH INH SCH (10:24)
--- NOTE | 2017-03-12 13:53 | HHI.HCPN ---
Reason for visit a. To assist with evaluation and management of symptoms including: dyspnea, anxiety b. To assist medical decision maker(s) with: better understanding of current medical conditions; weighing benefits/burdens of medical treatment options; making medical treatment decisions. Subjective/Interval History Pt seen to follow up on comfort goals. She has been on high flow NC 45% fio2. Ot sats mid 90s. H&H stable. Patient seen in room, son Brent at bedside. She is alert, oriented appropriate. Type. She remembers me from yesterday. She tells me she was able to talk to her son more, and she is certain that she does not want to go on mechanical vent. She indicate if she knew it would only be for short time or that things would resolve quickly then she would but not without certainty of rapid resolution . She also endorses she would not want to undergo CPR for cardiac issues. Her son Brent is supportive of this.b further explore with them current maximize medical treatments, the patient still high risk for respiratory compromise in decline. Review option for hospice, hospice role, services provided as alternative to increase/more invasive treatment. Patient is familiar with hospice. She is not ready at this time however is going to talk more with her son regarding. I provided them with copies of HCS completed yesterday. All questions answered, opened ongoing follow-up regarding conditions, goals of treatment. . Advance Directives Health Care Surrogate: Copy in medical record Advance Directive Specifics Date completed: 03/11/17 Health Care Surrogate(s): Named son Brent As HCS Objective Vital Signs Date Time Temp Pulse Resp B/P Pulse Ox O2 Delivery O2 Flow Rate FiO2 03/12/17 12:00 118 03/12/17 11:10 94 High Flow Nasal Cannula 35.00 45 03/12/17 10:03 95 50 03/12/17 10:00 112 03/12/17 08:04 94 50 03/12/17 08:00 98.9 115 18 150/72 94 03/12/17 08:00 115 03/12/17 06:00 117 03/12/17 04:12 98 50 03/12/17 04:00 105 03/12/17 04:00 98.9 105 16 119/60 94 03/12/17 02:00 108 03/12/17 00:00 99.1 107 17 110/55 95 03/12/17 00:00 107 03/11/17 23:39 96 55 03/11/17 22:00 99 03/11/17 21:52 92 65 03/11/17 20:00 101 03/11/17 20:00 99.6 101 18 113/55 91 03/11/17 19:14 99.5 95 19 108/58 99 03/11/17 19:10 99.1 100 18 102/55 94 03/11/17 18:30 94 50 03/11/17 18:00 105 03/11/17 16:00 99 03/11/17 16:00 99.3 99 117/58 96 03/11/17 15:50 95 50 03/11/17 14:00 95 Intake & Output 03/12/17 03/12/17 07:00 19:00 Intake Total 839 ml Output Total 1175 ml Balance -336 ml IV Total 839 ml Output Urine Total 1175 ml # Bowel Movements 0 Physical Exam CONSTITUTIONAL/GENERAL: This is an adequately nourished patient, was short of breath today, no apparent distress TUBES/LINES/DRAINS:Peripheral IV bilateral upper extremities, high flow nasal O2 , Salinas catheter, SKIN: No jaundice, rashes, or lesions. No wounds seen anteriorly. Skin temperature appropriate. Not diaphoretic. CARDIOVASCULAR: Regular rate and rhythm without murmurs. No JVD. Peripheral pulses symmetric. RESPIRATORY/CHEST: Symmetric, unlabored respirations. Clear, diminished. High flow nasal O2. Breath sounds equal bilaterally. GASTROINTESTINAL: Abdomen soft, round/obese, non-tender, nondistended. No hepato -splenomegaly, or palpable masses. No guarding. Bowel sounds present. GENITOURINARY: Without palpable bladder distension. Salinas catheter in place. NEUROLOGICAL: Awake and alert, oriented 3. Appropriate. Appears to have reasonable insight. Motor and sensory grossly within normal limits. Follows commands. Moves all 4 extremities. PSYCHIATRIC: + Mild anxiety evident w/ discussions regarding goals . Diagnostic Tests Laboratory Laboratory Tests Test 03/10/17 03/10/17 03/10/17 03/10/17 01:15 01:35 02:08 04:35 White Blood Count 15.5 TH/MM3 (4.0-11.0) Red Blood Count 3.07 MIL/MM3 (4.00-5.30) Hemoglobin 8.8 GM/DL (11.6-15.3) Hematocrit 28.0 % (35.0-46.0) Mean Corpuscular Volume 91.4 FL (80.0-100.0) Mean Corpuscular Hemoglobin 28.6 PG (27.0-34.0) Mean Corpuscular Hemoglobin 31.3 % Concent (32.0-36.0) Red Cell Distribution Width 15.9 % (11.6-17.2) Platelet Count 261 TH/MM3 (150-450) Mean Platelet Volume 8.5 FL (7.0-11.0) Neutrophils (%) (Auto) 93.5 % (16.0-70.0) Lymphocytes (%) (Auto) 2.2 % (9.0-44.0) Monocytes (%) (Auto) 2.9 % (0.0-8.0) Eosinophils (%) (Auto) 0.0 % (0.0-4.0) Basophils (%) (Auto) 1.4 % (0.0-2.0) Neutrophils # (Auto) 14.5 TH/MM3 (1.8-7.7) Lymphocytes # (Auto) 0.3 TH/MM3 (1.0-4.8) Monocytes # (Auto) 0.5 TH/MM3 (0-0.9) Eosinophils # (Auto) 0.0 TH/MM3 (0-0.4) Basophils # (Auto) 0.2 TH/MM3 (0-0.2) CBC Comment DIFF FINAL Differential Comment Prothrombin Time 9.5 SEC (9.8-11.6) Prothromb Time International 0.9 RATIO Ratio Activated Partial 24.7 SEC Thromboplast Time (24.3-30.1) Sodium Level 133 MEQ/L (136-145) Potassium Level 4.2 MEQ/L (3.5-5.1) Chloride Level 89 MEQ/L (98-107) Carbon Dioxide Level 35.6 MEQ/L (21.0-32.0) Anion Gap 8 MEQ/L (5-15) Blood Urea Nitrogen 24 MG/DL (7-18) Creatinine 0.88 MG/DL (0.50-1.00) Estimat Glomerular Filtration 63 ML/MIN (>89) Rate Random Glucose 155 MG/DL (74-106) Lactic Acid Level 2.5 mmol/L (0.4-2.0) Calcium Level 9.4 MG/DL (8.5-10.1) Magnesium Level 2.1 MG/DL (1.5-2.5) Total Bilirubin 0.3 MG/DL (0.2-1.0) Aspartate Amino Transf 21 U/L (15-37) (AST/SGOT) Alanine Aminotransferase 21 U/L (10-53) (ALT/SGPT) Alkaline Phosphatase 134 U/L (45-117) Troponin I LESS THAN 0.02 NG/ML (0.02-0.05) B-Type Natriuretic Peptide 87 PG/ML (0-100) Total Protein 7.1 GM/DL (6.4-8.2) Albumin 2.0 GM/DL (3.4-5.0) Lipase 130 U/L (73-393) Blood Gas Puncture Site RT RADIAL RT RADIAL Blood Gas Patient Temperature 98.6 98.6 Blood Gas HCO3 40 mmol/L 39 mmol/L (22-26) (22-26) Blood Gas Base Excess 11.7 mmol/L 11.9 mmol/L (-2-2) (-2-2) Blood Gas Oxygen Saturation 93 % (90-100) 89 % (90-100) Arterial Blood pH 7.19 7.27 (7.380-7.420) (7.380-7.420) Arterial Blood Partial 109 mmHg 89 mmHg (38-42) Pressure CO2 (38-42) Arterial Blood Partial 88 mmHG 62 mmHG Pressure O2 (61-120) (61-120) Arterial Blood Oxygen Content 12.3 Vol % 12.0 Vol % (12.0-20.0) (12.0-20.0) Arterial Blood 1.4 % (0-4) 1.3 % (0-4) Carboxyhemoglobin Arterial Blood Methemoglobin 0.8 % (0-2) 0.7 % (0-2) Blood Gas Hemoglobin 9.3 G/DL 9.5 G/DL (12.0-16.0) (12.0-16.0) Oxygen Delivery Device BIPAP BIPAP Blood Gas Ventilator Setting IPAP12/EPAP5 IPAP=12 EPAP=5 RR=20 Blood Gas Inspired Oxygen 40 % 45 % Urine Color YELLOW (YELLW/STRAW) Urine Turbidity CLEAR (CLEAR) Urine pH 5.5 (5.0-8.5) Urine Specific Jeffers 1.013 (1.002-1.035) Urine Protein 30 mg/dL (NEG-TRACE) Urine Glucose (UA) NEG mg/dL (NEG) Urine Ketones NEG mg/dL (NEG) Urine Occult Blood NEG (NEG) Urine Nitrite NEG (NEG) Urine Bilirubin NEG (NEG) Urine Urobilinogen LESS THAN 2.0 MG/DL (LESS THAN 2.0) Urine Leukocyte Esterase NEG (NEG) Urine RBC 5 /hpf (0-3) Urine WBC 3 /hpf (0-5) Urine Bacteria RARE /hpf (NONE) Urine Mucus FEW /lpf (OCC) Microscopic Urinalysis Comment CULT NOT INDICATED Test 03/10/17 03/10/17 03/10/17 03/11/17 04:45 06:10 12:45 05:08 Lactic Acid Level 1.5 mmol/L (0.4-2.0) Nasal Screen MRSA (PCR) MRSA NOT DETECTED (NOT DETECT) Blood Gas Puncture Site RT RADIAL LT RADIAL Blood Gas Patient Temperature 98.6 98.6 Blood Gas HCO3 41 mmol/L 39 mmol/L (22-26) (22-26) Blood Gas Base Excess 14.8 mmol/L 13.3 mmol/L (-2-2) (-2-2) Blood Gas Oxygen Saturation 92 % (90-100) 95 % (90-100) Arterial Blood pH 7.35 7.35 (7.380-7.420) (7.380-7.420) Arterial Blood Partial 76 mmHg (38-42) 73 mmHg (38-42) Pressure CO2 Arterial Blood Partial 75 mmHg 96 mmHg Pressure O2 (61-120) (61-120) Arterial Blood Oxygen Content 10.4 Vol % 12.3 Vol % (12.0-20.0) (12.0-20.0) Arterial Blood 1.7 % (0-4) 1.5 % (0-4) Carboxyhemoglobin Arterial Blood Methemoglobin 1.3 % (0-2) 1.0 % (0-2) Blood Gas Hemoglobin 7.9 G/DL 9.1 G/DL (12.0-16.0) (12.0-16.0) Oxygen Delivery Device BIPAP BIPAP Blood Gas Ventilator Setting IPAP+14/EPAP+5 IPAP14/EPAP5/R15 Blood Gas Inspired Oxygen 50 % 50 % Test 03/11/17 03/11/17 03/11/17 03/11/17 05:30 07:55 08:00 18:08 White Blood Count 8.8 TH/MM3 (4.0-11.0) Red Blood Count 2.31 MIL/MM3 (4.00-5.30) Hemoglobin 6.7 GM/DL (11.6-15.3) Hematocrit 20.8 % (35.0-46.0) Mean Corpuscular Volume 90.0 FL (80.0-100.0) Mean Corpuscular Hemoglobin 29.1 PG (27.0-34.0) Mean Corpuscular Hemoglobin 32.3 % Concent (32.0-36.0) Red Cell Distribution Width 15.9 % (11.6-17.2) Platelet Count 206 TH/MM3 (150-450) Mean Platelet Volume 7.9 FL (7.0-11.0) Neutrophils (%) (Auto) 96.0 % (16.0-70.0) Lymphocytes (%) (Auto) 1.8 % (9.0-44.0) Monocytes (%) (Auto) 2.2 % (0.0-8.0) Eosinophils (%) (Auto) 0.0 % (0.0-4.0) Basophils (%) (Auto) 0.0 % (0.0-2.0) Neutrophils # (Auto) 8.4 TH/MM3 (1.8-7.7) Lymphocytes # (Auto) 0.2 TH/MM3 (1.0-4.8) Monocytes # (Auto) 0.2 TH/MM3 (0-0.9) Eosinophils # (Auto) 0.0 TH/MM3 (0-0.4) Basophils # (Auto) 0.0 TH/MM3 (0-0.2) CBC Comment AUTO DIFF Differential Total Cells 100 Counted Neutrophils % (Manual) 86 % (16-70) Band Neutrophils % 8 % (0-6) Lymphocytes % 3 % (9-44) Monocytes % 3 % (0-8) Neutrophils # (Manual) 8.3 TH/MM3 (1.8-7.7) Differential Comment FINAL DIFF MANUAL Platelet Estimate NORMAL (NORMAL) Platelet Morphology Comment NORMAL (NORMAL) Sodium Level 138 MEQ/L (136-145) Potassium Level 2.8 MEQ/L (3.5-5.1) Chloride Level 91 MEQ/L (98-107) Carbon Dioxide Level 41.6 MEQ/L (21.0-32.0) Anion Gap 5 MEQ/L (5-15) Blood Urea Nitrogen 29 MG/DL (7-18) Creatinine 0.78 MG/DL (0.50-1.00) Estimat Glomerular Filtration 72 ML/MIN (>89) Rate Random Glucose 130 MG/DL (74-106) Calcium Level 8.2 MG/DL (8.5-10.1) Total Bilirubin 0.3 MG/DL (0.2-1.0) Aspartate Amino Transf 7 U/L (15-37) (AST/SGOT) Alanine Aminotransferase 14 U/L (10-53) (ALT/SGPT) Alkaline Phosphatase 96 U/L (45-117) Total Protein 6.1 GM/DL (6.4-8.2) Albumin 2.3 GM/DL (3.4-5.0) Blood Type O POSITIVE O POSITIVE Antibody Screen NEGATIVE Crossmatch Leukocyte-Reduced Red Blood Cells Blood Bank Comment B-Type Natriuretic Peptide 89 PG/ML (0-100) Test 03/11/17 03/11/17 03/12/17 03/12/17 18:15 18:35 05:40 08:30 Prothrombin Time 9.7 SEC (9.8-11.6) Prothromb Time International 0.9 RATIO Ratio White Blood Count 8.5 TH/MM3 8.6 TH/MM3 (4.0-11.0) (4.0-11.0) Red Blood Count 3.34 MIL/MM3 3.50 MIL/MM3 (4.00-5.30) (4.00-5.30) Hemoglobin 10.0 GM/DL 10.2 GM/DL (11.6-15.3) (11.6-15.3) Hematocrit 29.1 % 31.0 % (35.0-46.0) (35.0-46.0) Mean Corpuscular Volume 87.4 FL 88.8 FL (80.0-100.0) (80.0-100.0) Mean Corpuscular Hemoglobin 29.9 PG 29.2 PG (27.0-34.0) (27.0-34.0) Mean Corpuscular Hemoglobin 34.3 % 32.9 % Concent (32.0-36.0) (32.0-36.0) Red Cell Distribution Width 15.4 % 15.7 % (11.6-17.2) (11.6-17.2) Platelet Count 222 TH/MM3 240 TH/MM3 (150-450) (150-450) Mean Platelet Volume 8.4 FL 7.9 FL (7.0-11.0) (7.0-11.0) Sodium Level 140 MEQ/L 144 MEQ/L (136-145) (136-145) Potassium Level 2.8 MEQ/L 3.7 MEQ/L (3.5-5.1) (3.5-5.1) Chloride Level 96 MEQ/L 101 MEQ/L (98-107) (98-107) Carbon Dioxide Level 39.9 MEQ/L 35.3 MEQ/L (21.0-32.0) (21.0-32.0) Anion Gap 4 MEQ/L (5-15) 8 MEQ/L (5-15) Blood Urea Nitrogen 30 MG/DL (7-18) 33 MG/DL (7-18) Creatinine 0.70 MG/DL 0.66 MG/DL (0.50-1.00) (0.50-1.00) Estimat Glomerular Filtration 82 ML/MIN (>89) 88 ML/MIN (>89) Rate Random Glucose 131 MG/DL 142 MG/DL (74-106) (74-106) Calcium Level 8.8 MG/DL 8.9 MG/DL (8.5-10.1) (8.5-10.1) Phosphorus Level 1.3 MG/DL (2.5-4.9) Magnesium Level 2.4 MG/DL (1.5-2.5) Blood Gas Puncture Site LT RADIAL Blood Gas Patient Temperature 98.6 Blood Gas HCO3 33 mmol/L (22-26) Blood Gas Base Excess 8.6 mmol/L (-2-2) Blood Gas Oxygen Saturation 95 % (90-100) Arterial Blood pH 7.42 (7.380-7.420) Arterial Blood Partial 53 mmHg (38-42) Pressure CO2 Arterial Blood Partial 89 mmHg Pressure O2 (61-120) Arterial Blood Oxygen Content 15.9 Vol % (12.0-20.0) Arterial Blood 1.3 % (0-4) Carboxyhemoglobin Arterial Blood Methemoglobin 1.4 % (0-2) Blood Gas Hemoglobin 11.9 G/DL (12.0-16.0) Oxygen Delivery Device BIPAP Blood Gas Ventilator Setting 14/PEEP5/RATE15 Blood Gas Inspired Oxygen 50 % Result Diagram: 03/12/17 0540 03/12/17 0540 Microbiology Microbiology Date/Time Procedure Status Source Growth 03/10/17 01:15 Aerobic Blood Culture - Preliminary Resulted Blood Line NO GROWTH IN 2 DAYS 03/10/17 01:15 Anaerobic Blood Culture - Preliminary Resulted Blood Line NO GROWTH IN 2 DAYS 03/10/17 01:20 Aerobic Blood Culture - Preliminary Resulted Blood Peripheral NO GROWTH IN 2 DAYS 03/10/17 01:20 Anaerobic Blood Culture - Preliminary Resulted Blood Peripheral NO GROWTH IN 2 DAYS Imaging Last Impressions Abdomen/Pelvis CT 03/11/17 1517 Signed Impressions: Service Date/Time: Saturday, March 11, 2017 17:26 - CONCLUSION: Basilar lung consolidation and effusion. Abnormal gallbladder appearance, nonacute. Colonic diverticulosis. Abelino Champagne MD Chest X-Ray 03/11/17 0600 Signed Impressions: Service Date/Time: Saturday, March 11, 2017 03:35 - CONCLUSION: Increasing consolidation in the left lower lobe. Adi Benitez MD Assessment and Plan Disease Oriented Problem List: (1) Acute respiratory failure with hypoxia (2) Acute exacerbation of chronic obstructive pulmonary disease (COPD) (3) Diastolic heart failure (4) Pneumonia Symptom Scale: (1) Dyspnea (2) Anxiety Pertinent Non-Medical Issues Psychosocial: Spiritual: Legal:Pt currently a&O, appropriate, able to make her own decisions. She completed [facility] today, naming her son Brent as [facility]. Ethical issues impacting care: Important Contacts Son Brent [phone] (*named as [facility] 03/11/17) spouse Doc [phone] / [phone] Prognosis This pt with COPD was admitted for pneumonia. Of note, she has had recent hospitalization at [facility] for Pneumonia. She has COPD, O2 dependent for several years. Current medical treatment maximized. High risk for continues respiratory decline and need for intubation. High risk for complications, potential for prolonged mech ventilation if requires intubation 2/2 COPD. . Code Status: No Code Plan * Legal decision maker: Pt currently a&O, appropriate, able to make her own decisions. She completed [facility] 03/11, naming her son Brent as [facility]. * GOALS: met w pt, son. For now she wishes to cont maximum medical tx short of resuscitation. She and son are going to talk more RE comfort treatment only/ HOSPICE. * FULL CODE. DNR * SYMPTOMS: --dyspnea:admitted for hypoxia, SOB, chest CT =Basilar lung consolidation and effusion. If goals are aggressive, May require intubation. If goals comfort oriented would benefit from opiate; consider hydromorphone 0.51 mg IV every 3-4 hours prn dyspnea, in addition to benzodiazepine -- anxiety/depression- hx anxiety + depression. Anxiety worsens w dyspnea. Would benefit from low-dose lorazepam 0.25 or Xanax 0.25 prn * Palliative care will continue to follow during hospital course as condition evolves, to assist patient/decision-maker with understanding of medical conditions, weighing benefits/burdens of treatment options, for clarification of goals of treatment. Additionally will assist with any symptoms of palliative concern Attestation To help prompt me to consider important information that might be impacting today's encounter and assessment, information from prior notes written by myself or my colleagues may have been "brought forward" into today's note. My signature on this note, however, is an attestation that I personally performed the exam, history, and/or decision-making noted today, and, unless otherwise indicated, the interactions with patient, family, and staff as well as the review of records all occurred today. I also attest that the listed assessment and stated plan reflect my best clinical judgment today based on the combination of historical information, prior notes, and today's exam/ interactions. When time spent is documented, it refers only to time spent today by the signer, or if indicated, combined time spent today by collaborating physician/nurse practitioner. Melanie Cervantes Mar 12, 2017 13:53
--- NOTE | 2017-03-12 14:35 | HHI.IDPN ---
Subjective Subjective Remarks Patient is a 72-year-old female, with oxygen dependent COPD, brought into the hospital from a rehabilitation facility for evaluation of worsening shortness of breath. She was apparently recently hospitalized at [facility] with COPD exacerbation, and was treated for pneumonia. She was discharged to a [facility] for rehabilitation. Patient states that in the last 5 days she's been getting short of breath, and she was placed on BiPAP. She was not improving and was getting more short of breath so she was taken to the hospital for further evaluation and treatment. She complains of some left-sided chest pain. She states that she is not really coughing much. There's been no fever or chills. Her initial white count was 15,000. Her chest x-ray shows chronic fibrosis with no acute infiltrates. Patient currently is short of breath and is on a BiPAP mask. There is multiple antibiotic allergies including cephalosporins, quinolones, and Zithromax. Patient is not sure about her reaction but states some rash with Keflex. Infectious disease consultation has been requested to evaluate the patient. Notes reviewed Temps ok Still on CPAP Palliative medicine notes reviewed Has DNR status now Antibiotics Azactam Past Medical History COPD on home oxygen Diastolic heart failure Past history of seizure Anxiety Past Surgical History Appendectomy Cataract surgery Partial hysterectomy Left salpingo-oophorectomy Allergies: Coded Allergies: Betadine (Verified Allergy, Severe, EDEMA, SKIN BREAKDOWN, 08/13/16) Cephalosporins (Verified Allergy, Severe, YEAAST INFECT., 08/13/16) Cipro (Verified Allergy, Severe, GENERALIZED NUMBNESS, BREATHING PROBLEMS , 08/13/16) Contrast Media (Verified Allergy, Severe, HIVES, CARDIAC ARREST, 08/13/16) Iodine (Verified Allergy, Severe, SWELLING, SKIN BREAKDOWN, 08/13/16) Keflex (Verified Allergy, Severe, 08/13/16) Levaquin (Verified Allergy, Severe, NUMBNESS, SHORTNESS OF BREATH, 08/13/16) Zithromax (Verified Allergy, Severe, 08/13/16) Morphine (Verified Allergy, Mild, ITCHING, 08/13/16) PATIENT STARTED ITCHING AFTER SECOND DOSE OF MORPHINE, NO HIVES OR DIFFICULTY BREATHING NOTED. NURSE GOING TO CALL FOR ALVARADO ORDER PATIENT REFUSED IT. Barium Sulfate (Verified Allergy, Unknown, ITCHING AFTER ONE CUP E-Z CAT DRY, 08/13/16) Objective . Vital Signs Date Time Temp Pulse Resp B/P Pulse Ox O2 Delivery O2 Flow Rate FiO2 03/12/17 14:00 97 03/12/17 12:00 98.3 118 18 140/71 91 03/12/17 12:00 118 03/12/17 11:10 94 High Flow Nasal Cannula 35.00 45 03/12/17 10:03 95 50 03/12/17 10:00 112 03/12/17 08:04 94 50 03/12/17 08:00 98.9 115 18 150/72 94 03/12/17 08:00 115 03/12/17 06:00 117 03/12/17 04:12 98 50 03/12/17 04:00 105 03/12/17 04:00 98.9 105 16 119/60 94 03/12/17 02:00 108 03/12/17 00:00 99.1 107 17 110/55 95 03/12/17 00:00 107 03/11/17 23:39 96 55 03/11/17 22:00 99 03/11/17 21:52 92 65 03/11/17 20:00 101 03/11/17 20:00 99.6 101 18 113/55 91 03/11/17 19:14 99.5 95 19 108/58 99 03/11/17 19:10 99.1 100 18 102/55 94 03/11/17 18:30 94 50 03/11/17 18:00 105 03/11/17 16:00 99 03/11/17 16:00 99.3 99 117/58 96 03/11/17 15:50 95 50 03/11/17 03/11/17 03/12/17 14:59 22:59 06:59 Intake Total 718 ml 389 ml 450 ml Output Total 510 ml 850 ml 325 ml Balance 208 ml -461 ml 125 ml IV Total 98 ml 389 ml 450 ml Packed Cells 620 ml Output Urine Total 510 ml 850 ml 325 ml # Bowel Movements 0 0 0 . Laboratory Tests Test 03/11/17 03/11/17 03/12/17 05:30 18:35 05:40 White Blood Count 8.8 TH/MM3 8.5 TH/MM3 8.6 TH/MM3 Red Blood Count 2.31 MIL/MM3 3.34 MIL/MM3 3.50 MIL/MM3 Hemoglobin 6.7 GM/DL 10.0 GM/DL 10.2 GM/DL Hematocrit 20.8 % 29.1 % 31.0 % Mean Corpuscular Volume 90.0 FL 87.4 FL 88.8 FL Mean Corpuscular Hemoglobin 29.1 PG 29.9 PG 29.2 PG Mean Corpuscular Hemoglobin 32.3 % 34.3 % 32.9 % Concent Red Cell Distribution Width 15.9 % 15.4 % 15.7 % Platelet Count 206 TH/MM3 222 TH/MM3 240 TH/MM3 Mean Platelet Volume 7.9 FL 8.4 FL 7.9 FL Neutrophils (%) (Auto) 96.0 % Lymphocytes (%) (Auto) 1.8 % Monocytes (%) (Auto) 2.2 % Eosinophils (%) (Auto) 0.0 % Basophils (%) (Auto) 0.0 % Neutrophils # (Auto) 8.4 TH/MM3 Lymphocytes # (Auto) 0.2 TH/MM3 Monocytes # (Auto) 0.2 TH/MM3 Eosinophils # (Auto) 0.0 TH/MM3 Basophils # (Auto) 0.0 TH/MM3 CBC Comment AUTO DIFF Differential Total Cells 100 Counted Neutrophils % (Manual) 86 % Band Neutrophils % 8 % Lymphocytes % 3 % Monocytes % 3 % Neutrophils # (Manual) 8.3 TH/MM3 Differential Comment FINAL DIFF MANUAL Platelet Estimate NORMAL Platelet Morphology Comment NORMAL Laboratory Tests Test 03/11/17 03/11/17 03/11/17 03/12/17 05:30 18:08 18:35 05:40 Sodium Level 138 MEQ/L 140 MEQ/L 144 MEQ/L Potassium Level 2.8 MEQ/L 2.8 MEQ/L 3.7 MEQ/L Chloride Level 91 MEQ/L 96 MEQ/L 101 MEQ/L Carbon Dioxide Level 41.6 MEQ/L 39.9 MEQ/L 35.3 MEQ/L Anion Gap 5 MEQ/L 4 MEQ/L 8 MEQ/L Blood Urea Nitrogen 29 MG/DL 30 MG/DL 33 MG/DL Creatinine 0.78 MG/DL 0.70 MG/DL 0.66 MG/DL Estimat Glomerular Filtration 72 ML/MIN 82 ML/MIN 88 ML/MIN Rate Random Glucose 130 MG/DL 131 MG/DL 142 MG/DL Calcium Level 8.2 MG/DL 8.8 MG/DL 8.9 MG/DL Total Bilirubin 0.3 MG/DL Aspartate Amino Transf 7 U/L (AST/SGOT) Alanine Aminotransferase 14 U/L (ALT/SGPT) Alkaline Phosphatase 96 U/L Total Protein 6.1 GM/DL Albumin 2.3 GM/DL B-Type Natriuretic Peptide 89 PG/ML Phosphorus Level 1.3 MG/DL Magnesium Level 2.4 MG/DL Microbiology Date/Time Procedure Status Source Growth 03/10/17 01:15 Aerobic Blood Culture - Preliminary Resulted Blood Line NO GROWTH IN 2 DAYS 03/10/17 01:15 Anaerobic Blood Culture - Preliminary Resulted Blood Line NO GROWTH IN 2 DAYS 03/10/17 01:20 Aerobic Blood Culture - Preliminary Resulted Blood Peripheral NO GROWTH IN 2 DAYS 03/10/17 01:20 Anaerobic Blood Culture - Preliminary Resulted Blood Peripheral NO GROWTH IN 2 DAYS Imaging Last Impressions Abdomen/Pelvis CT 03/11/17 1517 Signed Impressions: Service Date/Time: Saturday, March 11, 2017 17:26 - CONCLUSION: Basilar lung consolidation and effusion. Abnormal gallbladder appearance, nonacute. Colonic diverticulosis. Abelino Champagne MD Chest X-Ray 03/11/17 0600 Signed Impressions: Service Date/Time: Saturday, March 11, 2017 03:35 - CONCLUSION: Increasing consolidation in the left lower lobe. Adi Benitez MD Physical Exam GENERAL: awake and alert, on BIPAP mask, SOB at rest SKIN: Warm and dry. No generalized rash, no ecchymoses HEAD: Atraumatic. Normocephalic. No temporal wasting, or tenderness. EYES: [place] conjunctiva. No petechia or hemorrhage. Pupils equal, round and reactive to light. Extraocular movements full and intact. No scleral icterus. No injection or drainage. EARS, NOSE AND THROAT: Nose without bleeding or purulent nasal discharge. Mucous membranes moist. Has BIPAP mask NECK: Trachea midline. Supple and not tender, no meningeal signs CARDIOVASCULAR: Regular rate and rhythm. No murmurs, rubs or gallops heard RESPIRATORY: Diffuse rhonchi ABDOMEN: Soft, non-tender, mildly distended. Bowel sounds present and normoactive. No guarding. No rebound. No organomegaly. EXTREMITIES: No clubbing, cyanosis, no joint effusion, has good ROM. No calf tenderness. Well perfused and warm. Has pitting edema both feet NEUROLOGICAL: Awake and alert. Moves all extremities. PSYCHIATRIC: Normal affect, calm and cooperative. LINE: No evidence of infection Assessment & Plan Remarks IMPRESSION COPD exacerbation, patient with O2 dependent COPD - clinically looks more of exacerbation than PNA Multiple Abx allergies Anemia RECOMMENDATION Continue Azactam for now Rx COPD exacerbation Palliative medicine evaluating patient and goals of care Monitor progress D/W Sheila Pelaez MD Mar 12, 2017 14:35
[2017-03-12] MEDS ORDERED: POTASSIUM CHLORIDE 25 MEQ EFFERVESCENT TAB PO ONE (15:15)
[2017-03-12] MEDS ORDERED: POTASSIUM CHLOR 20 MEQ PREMIX 100 ML IV ONE (15:30)
[2017-03-12] MEDS ORDERED: METOPROLOL TARTRATE 5 MG/5 ML VIAL IV PUSH ONE (17:30)
[2017-03-13] VITALS (16 sets, daily range): BP systolic 109–145; BP diastolic 55–76; PULSE 85–107; RESP 16–20; TEMP 98–98.9; O2SAT 91–99
[2017-03-13 00:15] LABS: POTASSIUM 3.1 MEQ/L (3.5-5.1)
[2017-03-13] MEDS: RESP: ALBUTEROL 2.5 MG/IPRATROPIUM 0.5 MG NEB (SCH) NEB ×6 (03:55→23:29)
[2017-03-13] MEDS: CHLORHEXIDINE GLUCONATE 2 % 1 PACK (2 CLOTHS) TOP SCH (04:00)
[2017-03-13 04:43] LABS: BLOOD GAS BASE EXCESS 9.3 mmol/L (-2-2); BLOOD GAS CARBOXYHEMOGLOBIN 1.4 % (0-4); BLOOD GAS HCO3 34 mmol/L (22-26); BLOOD GAS METHEMOGLOBIN 1.3 % (0-2); BLOOD GAS O2 HGB SATURATION 95 % (90-100); BLOOD GAS OXYGEN CONTENT 15.7 Vol % (12.0-20.0); BLOOD GAS PCO2 57 mmHg (38-42); BLOOD GAS PO2 99 mmHg (61-120); BLOOD GAS TOTAL HGB 11.6 G/DL (12.0-16.0); TEMP CORR TO 98.6
[2017-03-13 04:44] LABS: CRITICAL VALUE YES; OXYGEN DEVICE BiPAP
[2017-03-13 04:45] LABS: DRAW SITE LT RADIAL; VENT SETTINGS IPAP14/EPAP5
[2017-03-13 04:46] LABS: FIO2 50 %; NUMBER OF ARTERIAL PUNCTURES 1; STAT NO; ULNAR PULSE PRESENT
[2017-03-13] MEDS: AZTREONAM INJ 1,000 MG in SODIUM CHLORIDE 0.9% INJ 100 ML IV SCH ×3 (04:46→21:04)
[2017-03-13] MEDS: ENOXAPARIN SODIUM 40 MG/0.4 ML SYRINGE SQ SCH (04:47)
[2017-03-13] MEDS: THEOPHYLLINE ER 12 HR 300 MG TABCR PO SCH ×2 (04:47→15:39)
[2017-03-13 05:56] LABS: BICARBONATE 36.5 MEQ/L (21.0-32.0); POTASSIUM 3.2 MEQ/L (3.5-5.1)
[2017-03-13] MEDS: methylPREDNISolone SOD SUCC 125 MG/2 ML VIAL IV PUSH SCH ×2 (06:29→13:35)
[2017-03-13] MEDS: INSULIN ASPART SUPPLEMENTAL SCALE SQ SCH ×4 (06:29→21:00)
[2017-03-13] MEDS: CHLORHEXIDINE 0.12% (ORAL KIT) 15 ML CUP MT SCH ×2 (08:00→20:00)
[2017-03-13] MEDS: FLUTICASONE PROPIONATE 50 MCG/ACT 16 GM NASAL SPRAY EACH NARE SCH ×2 (08:58→21:04)
[2017-03-13] MEDS: BUDESONIDE-FORMOTEROL 160/4.5 MCG INHALER INH SCH ×2 (08:58→21:05)
[2017-03-13] MEDS: TIOTROPIUM BROMIDE 18 MCG INH INH SCH (08:58)
[2017-03-13] MEDS: CHOLECALCIFEROL (VIT D3) 1000 UNIT TAB PO SCH (08:58)
[2017-03-13] MEDS: DOCUSATE SODIUM 50 MG/SENNA 8.6 MG TAB PO SCH ×2 (08:59→21:04)
[2017-03-13] MEDS: FERROUS SULFATE 325 MG (65 MG ELEMENTAL IRON) TAB PO SCH (08:59)
[2017-03-13] MEDS: DILTIAZEM-CD 180 MG CAP ER PO SCH (08:59)
[2017-03-13] MEDS: acetaZOLAMIDE 250 MG TAB PO SCH (08:59)
[2017-03-13] MEDS: PANTOPRAZOLE SODIUM 40 MG VIAL IV SCH (08:59)
[2017-03-13] MEDS: GABAPENTIN 300 MG CAP PO SCH ×3 (08:59→17:19)
--- NOTE | 2017-03-13 09:04 | HHI.IDPN ---
Subjective Subjective Remarks Patient is a 72-year-old female, with oxygen dependent COPD, brought into the hospital from a rehabilitation facility for evaluation of worsening shortness of breath. She was apparently recently hospitalized at [facility] with COPD exacerbation, and was treated for pneumonia. She was discharged to a [facility] for rehabilitation. Patient states that in the last 5 days she's been getting short of breath, and she was placed on BiPAP. She was not improving and was getting more short of breath so she was taken to the hospital for further evaluation and treatment. She complains of some left-sided chest pain. She states that she is not really coughing much. There's been no fever or chills. Her initial white count was 15,000. Her chest x-ray shows chronic fibrosis with no acute infiltrates. Patient currently is short of breath and is on a BiPAP mask. There is multiple antibiotic allergies including cephalosporins, quinolones, and Zithromax. Patient is not sure about her reaction but states some rash with Keflex. Infectious disease consultation has been requested to evaluate the patient. Notes reviewed Temps occ low grade D/W RN On high flow nasal O2 Did BIPAP last night Not as SOB Not coughing Antibiotics Azactam Past Medical History COPD on home oxygen Diastolic heart failure Past history of seizure Anxiety Past Surgical History Appendectomy Cataract surgery Partial hysterectomy Left salpingo-oophorectomy Allergies: Coded Allergies: Betadine (Verified Allergy, Severe, EDEMA, SKIN BREAKDOWN, 08/13/16) Cephalosporins (Verified Allergy, Severe, YEAAST INFECT., 08/13/16) Cipro (Verified Allergy, Severe, GENERALIZED NUMBNESS, BREATHING PROBLEMS , 08/13/16) Contrast Media (Verified Allergy, Severe, HIVES, CARDIAC ARREST, 08/13/16) Iodine (Verified Allergy, Severe, SWELLING, SKIN BREAKDOWN, 08/13/16) Keflex (Verified Allergy, Severe, 08/13/16) Levaquin (Verified Allergy, Severe, NUMBNESS, SHORTNESS OF BREATH, 08/13/16) Zithromax (Verified Allergy, Severe, 08/13/16) Morphine (Verified Allergy, Mild, ITCHING, 08/13/16) PATIENT STARTED ITCHING AFTER SECOND DOSE OF MORPHINE, NO HIVES OR DIFFICULTY BREATHING NOTED. NURSE GOING TO CALL FOR ALVARADO ORDER PATIENT REFUSED IT. Barium Sulfate (Verified Allergy, Unknown, ITCHING AFTER ONE CUP E-Z CAT DRY, 08/13/16) Objective . Vital Signs Date Time Temp Pulse Resp B/P Pulse Ox O2 Delivery O2 Flow Rate FiO2 03/13/17 08:24 95 High Flow Nasal Cannula 20.00 65 03/13/17 07:00 Bi-Pap 50 03/13/17 06:00 91 03/13/17 04:00 96 03/13/17 04:00 98.0 91 18 130/66 98 03/13/17 03:57 95 50 03/13/17 02:00 91 03/13/17 00:00 98.2 85 16 109/55 95 03/13/17 00:00 85 03/12/17 23:57 95 50 03/12/17 22:00 100 03/12/17 21:15 93 50 03/12/17 21:15 93 BiPAP 50 03/12/17 20:00 100.4 93 17 128/71 92 03/12/17 20:00 93 03/12/17 19:00 Bi-Pap 50 03/12/17 18:00 98 03/12/17 17:30 93 50 03/12/17 17:30 Bi-Pap 03/12/17 16:00 100 03/12/17 16:00 99.8 100 15 126/64 92 03/12/17 15:48 91 High Flow Nasal Cannula 35.00 55 03/12/17 14:00 97 03/12/17 12:00 98.3 118 18 140/71 91 03/12/17 12:00 118 03/12/17 11:10 94 High Flow Nasal Cannula 35.00 45 03/12/17 10:03 95 50 03/12/17 10:00 112 03/12/17 03/12/17 03/13/17 14:59 22:59 06:59 Intake Total 230 ml 446 ml 402 ml Output Total 1800 ml 550 ml 350 ml Balance -1570 ml -104 ml 52 ml Intake Oral 120 ml 240 ml IV Total 230 ml 326 ml 162 ml Output Urine Total 1800 ml 550 ml 350 ml # Bowel Movements 1 0 0 . Laboratory Tests Test 03/11/17 03/12/17 18:35 05:40 White Blood Count 8.5 TH/MM3 8.6 TH/MM3 Red Blood Count 3.34 MIL/MM3 3.50 MIL/MM3 Hemoglobin 10.0 GM/DL 10.2 GM/DL Hematocrit 29.1 % 31.0 % Mean Corpuscular Volume 87.4 FL 88.8 FL Mean Corpuscular Hemoglobin 29.9 PG 29.2 PG Mean Corpuscular Hemoglobin 34.3 % 32.9 % Concent Red Cell Distribution Width 15.4 % 15.7 % Platelet Count 222 TH/MM3 240 TH/MM3 Mean Platelet Volume 8.4 FL 7.9 FL Laboratory Tests Test 03/11/17 03/11/17 03/12/17 03/12/17 18:08 18:35 05:40 13:15 B-Type Natriuretic Peptide 89 PG/ML Sodium Level 140 MEQ/L 144 MEQ/L Potassium Level 2.8 MEQ/L 3.7 MEQ/L 2.8 MEQ/L Chloride Level 96 MEQ/L 101 MEQ/L Carbon Dioxide Level 39.9 MEQ/L 35.3 MEQ/L Anion Gap 4 MEQ/L 8 MEQ/L Blood Urea Nitrogen 30 MG/DL 33 MG/DL Creatinine 0.70 MG/DL 0.66 MG/DL Estimat Glomerular Filtration 82 ML/MIN 88 ML/MIN Rate Random Glucose 131 MG/DL 142 MG/DL Calcium Level 8.8 MG/DL 8.9 MG/DL Phosphorus Level 1.3 MG/DL Magnesium Level 2.4 MG/DL Test 03/12/17 03/13/17 23:30 05:00 Potassium Level 3.1 MEQ/L 3.2 MEQ/L Phosphorus Level 2.6 MG/DL 2.4 MG/DL Sodium Level 143 MEQ/L Chloride Level 100 MEQ/L Carbon Dioxide Level 36.5 MEQ/L Anion Gap 7 MEQ/L Blood Urea Nitrogen 30 MG/DL Creatinine 0.66 MG/DL Estimat Glomerular Filtration 88 ML/MIN Rate Random Glucose 150 MG/DL Calcium Level 8.8 MG/DL Imaging Last Impressions Abdomen/Pelvis CT 03/11/17 1517 Signed Impressions: Service Date/Time: Saturday, March 11, 2017 17:26 - CONCLUSION: Basilar lung consolidation and effusion. Abnormal gallbladder appearance, nonacute. Colonic diverticulosis. Abelino Champagne MD Chest X-Ray 03/11/17 0600 Signed Impressions: Service Date/Time: Saturday, March 11, 2017 03:35 - CONCLUSION: Increasing consolidation in the left lower lobe. Adi Benitez MD Physical Exam GENERAL: awake and alert, on nasal O2, less SOB at rest SKIN: Warm and dry. No generalized rash, no ecchymoses HEAD: Atraumatic. Normocephalic. No temporal wasting, or tenderness. EYES: [place] conjunctiva. No petechia or hemorrhage. Pupils equal, round and reactive to light. Extraocular movements full and intact. No scleral icterus. No injection or drainage. EARS, NOSE AND THROAT: Nose without bleeding or purulent nasal discharge. Mucous membranes moist. Has BIPAP mask NECK: Trachea midline. Supple and not tender, no meningeal signs CARDIOVASCULAR: Regular rate and rhythm. No murmurs, rubs or gallops heard RESPIRATORY: Some rhonchi on R base ABDOMEN: Soft, non-tender, mildly distended. Bowel sounds present and normoactive. No guarding. No rebound. No organomegaly. EXTREMITIES: No clubbing, cyanosis, no joint effusion, has good ROM. No calf tenderness. Well perfused and warm. Has pitting edema both feet NEUROLOGICAL: Awake and alert. Moves all extremities. PSYCHIATRIC: Normal affect, calm and cooperative. LINE: No evidence of infection Assessment & Plan Remarks IMPRESSION COPD exacerbation, patient with O2 dependent COPD - clinically looks more of exacerbation than PNA Multiple Abx allergies Anemia RECOMMENDATION Continue Azactam for now Rx COPD exacerbation Palliative medicine evaluating patient and goals of care Monitor progress D/W Sheila Pelaez MD Mar 13, 2017 09:03
[2017-03-13] MEDS ORDERED: POTASSIUM CHLORIDE 25 MEQ EFFERVESCENT TAB PO ONE (13:00)
[2017-03-13] MEDS: POTASSIUM CHLOR 20 MEQ PREMIX 100 ML IV SCH ×2 (13:35→15:39)
--- NOTE | 2017-03-13 14:53 | HHI.CCPN ---
Subjective Remarks/Hospital Course Patient is a 72-year-old chronically ill debilitated female with history of COPD on home oxygen, pneumonia, diastolic heart failure, COPD on chronic home O2 who presented to the emergency department with shortness of breath. She was recently discharged from [facility] after admission for pneumonia and was at [facility] for Rehab. Patient was dyspneic with crackles on the chest and 70% oxygen saturation. senior care placed her on 50% Ventimask without improvement and EMS was contacted. EMS initiated on CPAP with improvement of O2 saturation to 90s. In emergency department patient was found in acute distress and was placed on BiPAP, given DuoNeb 3 and 80 mg of Lasix IV. ABG just after patient was placed on BiPAP shows respiratory acidosis with pH 7.19, PCO2 109, PO2 88. WBC was elevated at 15.1 with left shift. Lactic acid slightly elevated at 2.5. Patient was empirically covered with vancomycin and Zosyn for possible HCAP I evaluated the patient in the ED. Currently remains on BiPAP symptomatically slightly improved but still has labored breathing and diffuse crackles. Patient would like to try to avoid intubation if possible and son concurs with her decision. She want to continue to be a full code. Chest x-ray on my review did not show any acute infiltrates. I will continue breathing treatments and start IV Solu-Medrol 125 mg 1 and 60 mg IV every 8 hours. Broad -spectrum antibiotics coverage with Azactam. Updated patient and her son at the bedside. I informed him that if not steadily improving patient may need endotracheal intubation Subjective: 03/11: Early this a.m. the patient was noted to have acute blood loss anemia patients being transfused 1 unit of packed red blood cells. Patient was also noted to be hypokalemic and her calcium is being repleted. 03/12: Patient still requiring BiPAP at this time, abdominal pain most likely secondary to constipation CT scan of the abdomen and pelvis negative yesterday. Plans to attempt high flow nasal cannula with diuresis and initiation of clear liquid diet. 03/13: The patient has been alternating between high flow oxygen and BiPAP. Patient is tolerating a clear liquid diet will advance diet as tolerated. Hemoglobin stable. The patient has determined her CODE STATUS to be DNR, and now considering hospice care. Palliative care team following. Objective Vital Signs Date Time Temp Pulse Resp B/P Pulse Ox O2 Delivery O2 Flow Rate FiO2 8/9/17 14:00 101 03/13/17 12:00 98.9 20 135/76 91 03/13/17 08:24 High Flow Nasal Cannula 20.00 65 Intake and Output 03/12/17 03/12/17 03/13/17 08:00 16:00 00:00 Intake Total 450 ml 230 ml 446 ml Output Total 325 ml 1800 ml 550 ml Balance 125 ml -1570 ml -104 ml Result Diagram: 03/12/17 0540 03/13/17 0500 Other Results Laboratory Tests Test 03/13/17 01:38 Blood Gas Puncture Site LT RADIAL Blood Gas Patient Temperature 98.6 Blood Gas HCO3 34 mmol/L (22-26) Blood Gas Base Excess 9.3 mmol/L (-2-2) Blood Gas Oxygen Saturation 95 % (90-100) Arterial Blood pH 7.40 (7.380-7.420) Arterial Blood Partial 57 mmHg (38-42) Pressure CO2 Arterial Blood Partial 99 mmHg Pressure O2 (61-120) Arterial Blood Oxygen Content 15.7 Vol % (12.0-20.0) Arterial Blood 1.4 % (0-4) Carboxyhemoglobin Arterial Blood Methemoglobin 1.3 % (0-2) Blood Gas Hemoglobin 11.6 G/DL (12.0-16.0) Oxygen Delivery Device BiPAP Blood Gas Ventilator Setting [id number] Blood Gas Inspired Oxygen 50 % Imaging CXR No acute findings Objective Remarks GENERAL: Chronically ill-appearing and debilitated elderly female, who is on BiPAP alert and responsive. SKIN: Warm/dry. HEAD: Normocephalic. EYES: No scleral icterus. No injection or drainage. ENT: Mucous membranes moist. NECK: Supple CARDIOVASCULAR: Regular rate and rhythm. No murmur appreciated. Telemetry sinus tachycardia RESPIRATORY: On BiPAP with diffuse crackles, rhonchi throughout bilateral lung lomas GASTROINTESTINAL: Abdomen soft, non-tender, nondistended. MUSCULOSKELETAL: No obvious deformities. 1+ edema in the bilateral lower extremities NEUROLOGICAL: Awake and alert. No focal deficits. Date of Insertion: Mar 10, 2017 A/P Assessment and Plan NEURO: History of seizure disorder - Will resume Neurontin its 100 mg decrease frequency to 3 times a day - Watch for seizures, seizure precautions -Neurochecks per ICU protocol RESP: Acute hypoxemic and hypercarbic respiratory failure Acute COPD exacerbation Pneumonia - BiPAP 07/09, I/O 50%. Serial ABG's as indicated - Alternating high flow nasal cannula - DuoNeb every 4 hours scheduled and when necessary - IV Solu-Medrol 125 mg 1 and 60 mg IV every 8 hours - Continue Symbicort ,theophylline Spiriva - 03/12 CXR-bilateral lung consolidation left greater than right. Small amount of pleural fluid -ID following-Dr. Byrd CV: Diastolic heart failure Pedal edema - Received 80 mg IV Lasix in the ED. Continue 20 mg IV Lasix every 12 - 03/10 2-D echo-ejection fraction less than 65%. No regional wall motion abnormalities. Grade 1 diastolic dysfunction. Moderate pulmonary hypertension (50-60 mmHg) - Lasix 40 mg x 1 dose GI: Constipation-resolved - Nothing by mouth and her clinical condition improves. - IV Protonix -Bowel regimen - 03/11 CT abdomen-diverticulosis, no free air, nonacute abnormal gallbladder -Bowel regimen : - Monitor renal function closely. -Replete electrolytes per ICU protocol - Continue [place] catheter ID: - Antibiotics per ID. - 03/10 blood and sputum culture- NGTD HEME: -Monitor CBC, CMP -03/11 2 u PRBC -F/U Hemoccult- results ENDO: - Electrolyte replacement per protocol -Potassium chloride 40 mEq -Glucose monitoring per ICU protocol PROPH: - Bilateral lower extremity SCDs. Lovenox 40 mg subcutaneous daily. IV Protonix 40 mg daily LINES: - Utilize peripheral IVs, central line if needed Dispo: Palliative care team consulted for decisions regarding of goals of care. Patient's CODE STATUS changed to DNR/DNI 03/12: Discussed with Brent BALL [id number], and provided medical update Level 2 Plan transfer to [facility] in a.. Physician Lee Ann Valenzuela MD Mar 13, 2017 14:53
--- NOTE | 2017-03-13 14:56 | HHI.HCPN ---
Reason for visit a. To assist with evaluation and management of symptoms including: dyspnea, anxiety b. To assist medical decision maker(s) with: better understanding of current medical conditions; weighing benefits/burdens of medical treatment options; making medical treatment decisions. Subjective/Interval History Pt seen to follow up on comfort, goals. Had been on high flow O2, changed to Bipap at time of my arrival. Nursing reports pt w increased tachycardia 140s on NC. VS otherwise stable. K+ 3.2 repletion per critical care.No new imaging. Pt seen in room, as nurse putting on bipap. She is a&o and remembers me from prior days. She tells me that her son has not been in yet today, but her is coming later. She does not want him to stay long because he increases her agitation. Denies pain, breathing feels "ok" today. Having adequate BM after PO interventions yesterday. Upon review of her conditions and goals, she shares she has not been able to talk more with her son RE hospice, she wishes to cont current treatments in place now. . Advance Directives Health Care Surrogate: Copy in medical record Advance Directive Specifics Date completed: 03/11/17 Health Care Surrogate(s): Named son Brent As HCS Objective Vital Signs Date Time Temp Pulse Resp B/P Pulse Ox O2 Delivery O2 Flow Rate FiO2 03/13/17 14:00 101 03/13/17 12:00 105 03/13/17 12:00 98.9 91 20 135/76 91 03/13/17 10:00 99 03/13/17 08:24 95 High Flow Nasal Cannula 20.00 65 03/13/17 08:00 98 03/13/17 08:00 98.3 98 17 140/70 95 03/13/17 07:00 Bi-Pap 50 03/13/17 06:00 91 03/13/17 04:00 96 03/13/17 04:00 98.0 91 18 130/66 98 03/13/17 03:57 95 50 03/13/17 02:00 91 03/13/17 00:00 98.2 85 16 109/55 95 03/13/17 00:00 85 03/12/17 23:57 95 50 03/12/17 22:00 100 03/12/17 21:15 93 50 03/12/17 21:15 93 BiPAP 50 03/12/17 20:00 100.4 93 17 128/71 92 03/12/17 20:00 93 03/12/17 19:00 Bi-Pap 50 03/12/17 18:00 98 03/12/17 17:30 93 50 03/12/17 17:30 Bi-Pap 03/12/17 16:00 100 03/12/17 16:00 99.8 100 15 126/64 92 03/12/17 15:48 91 High Flow Nasal Cannula 35.00 55 Intake & Output 03/13/17 03/13/17 07:00 19:00 Intake Total 848 ml 170 ml Output Total 900 ml 500 ml Balance -52 ml -330 ml Intake Oral 360 ml IV Total 488 ml 170 ml Output Urine Total 900 ml 500 ml # Bowel Movements 0 1 Physical Exam CONSTITUTIONAL/GENERAL: This is an adequately nourished patient, visibly short of breath, worsens with conversation TUBES/LINES/DRAINS:Peripheral IV bilateral upper extremities, BiPAP mask, Salinas catheter, SKIN: No jaundice, rashes, or lesions. No wounds seen anteriorly. Skin temperature appropriate. Not diaphoretic. HEAD: Atraumatic. Normocephalic. EYES: Pupils equal and round and reactive. Extraocular motions intact. No scleral icterus. No injection or drainage. Fundi not examined. ENT: Hearing grossly normal. Nose without bleeding or purulent drainage. Limited oropharynx exam due to BiPAP. Mucous membranes dry, no visible exudates. NECK: Trachea midline. Supple, nontender. No palpable thyroid enlargement or nodularity. CARDIOVASCULAR: Regular rate and rhythm without murmurs, mildly tachycardic 105. No JVD. Peripheral pulses symmetric. RESPIRATORY/CHEST: Symmetric, mildly labored respirations. +crackles, course rhonchi . Breath sounds equal bilaterally. GASTROINTESTINAL: Abdomen soft, round/obese, non-tender, nondistended. No hepato -splenomegaly, or palpable masses. No guarding. Bowel sounds present. GENITOURINARY: Without palpable bladder distension. Salinas catheter in place. MUSCULOSKELETAL: Extremities without clubbing, cyanosis, or edema. No joint tenderness or effusion noted. No mottling or clubbing. LYMPHATICS: No palpable cervical or supraclavicular adenopathy. NEUROLOGICAL: Awake and alert, oriented 3. Appropriate. Appears to have reasonable insight. Motor and sensory grossly within normal limits. Follows commands. Moves all 4 extremities. PSYCHIATRIC: + Mild anxiety evident w/ discussions regarding goals, tachypneic Diagnostic Tests Laboratory Laboratory Tests Test 03/11/17 03/11/17 03/11/17 03/11/17 05:08 05:30 07:55 08:00 Blood Gas Puncture Site LT RADIAL Blood Gas Patient Temperature 98.6 Blood Gas HCO3 39 mmol/L (22-26) Blood Gas Base Excess 13.3 mmol/L (-2-2) Blood Gas Oxygen Saturation 95 % (90-100) Arterial Blood pH 7.35 (7.380-7.420) Arterial Blood Partial 73 mmHg (38-42) Pressure CO2 Arterial Blood Partial 96 mmHg Pressure O2 (61-120) Arterial Blood Oxygen Content 12.3 Vol % (12.0-20.0) Arterial Blood 1.5 % (0-4) Carboxyhemoglobin Arterial Blood Methemoglobin 1.0 % (0-2) Blood Gas Hemoglobin 9.1 G/DL (12.0-16.0) Oxygen Delivery Device BIPAP Blood Gas Ventilator Setting IPAP14/EPAP5/R15 Blood Gas Inspired Oxygen 50 % White Blood Count 8.8 TH/MM3 (4.0-11.0) Red Blood Count 2.31 MIL/MM3 (4.00-5.30) Hemoglobin 6.7 GM/DL (11.6-15.3) Hematocrit 20.8 % (35.0-46.0) Mean Corpuscular Volume 90.0 FL (80.0-100.0) Mean Corpuscular Hemoglobin 29.1 PG (27.0-34.0) Mean Corpuscular Hemoglobin 32.3 % Concent (32.0-36.0) Red Cell Distribution Width 15.9 % (11.6-17.2) Platelet Count 206 TH/MM3 (150-450) Mean Platelet Volume 7.9 FL (7.0-11.0) Neutrophils (%) (Auto) 96.0 % (16.0-70.0) Lymphocytes (%) (Auto) 1.8 % (9.0-44.0) Monocytes (%) (Auto) 2.2 % (0.0-8.0) Eosinophils (%) (Auto) 0.0 % (0.0-4.0) Basophils (%) (Auto) 0.0 % (0.0-2.0) Neutrophils # (Auto) 8.4 TH/MM3 (1.8-7.7) Lymphocytes # (Auto) 0.2 TH/MM3 (1.0-4.8) Monocytes # (Auto) 0.2 TH/MM3 (0-0.9) Eosinophils # (Auto) 0.0 TH/MM3 (0-0.4) Basophils # (Auto) 0.0 TH/MM3 (0-0.2) CBC Comment AUTO DIFF Differential Total Cells 100 Counted Neutrophils % (Manual) 86 % (16-70) Band Neutrophils % 8 % (0-6) Lymphocytes % 3 % (9-44) Monocytes % 3 % (0-8) Neutrophils # (Manual) 8.3 TH/MM3 (1.8-7.7) Differential Comment FINAL DIFF MANUAL Platelet Estimate NORMAL (NORMAL) Platelet Morphology Comment NORMAL (NORMAL) Sodium Level 138 MEQ/L (136-145) Potassium Level 2.8 MEQ/L (3.5-5.1) Chloride Level 91 MEQ/L (98-107) Carbon Dioxide Level 41.6 MEQ/L (21.0-32.0) Anion Gap 5 MEQ/L (5-15) Blood Urea Nitrogen 29 MG/DL (7-18) Creatinine 0.78 MG/DL (0.50-1.00) Estimat Glomerular Filtration 72 ML/MIN (>89) Rate Random Glucose 130 MG/DL (74-106) Calcium Level 8.2 MG/DL (8.5-10.1) Total Bilirubin 0.3 MG/DL (0.2-1.0) Aspartate Amino Transf 7 U/L (15-37) (AST/SGOT) Alanine Aminotransferase 14 U/L (10-53) (ALT/SGPT) Alkaline Phosphatase 96 U/L (45-117) Total Protein 6.1 GM/DL (6.4-8.2) Albumin 2.3 GM/DL (3.4-5.0) Blood Type O POSITIVE O POSITIVE Antibody Screen NEGATIVE Crossmatch Leukocyte-Reduced Red Blood Cells Blood Bank Comment Test 03/11/17 03/11/17 03/11/17 03/12/17 18:08 18:15 18:35 05:40 B-Type Natriuretic Peptide 89 PG/ML (0-100) Prothrombin Time 9.7 SEC (9.8-11.6) Prothromb Time International 0.9 RATIO Ratio White Blood Count 8.5 TH/MM3 8.6 TH/MM3 (4.0-11.0) (4.0-11.0) Red Blood Count 3.34 MIL/MM3 3.50 MIL/MM3 (4.00-5.30) (4.00-5.30) Hemoglobin 10.0 GM/DL 10.2 GM/DL (11.6-15.3) (11.6-15.3) Hematocrit 29.1 % 31.0 % (35.0-46.0) (35.0-46.0) Mean Corpuscular Volume 87.4 FL 88.8 FL (80.0-100.0) (80.0-100.0) Mean Corpuscular Hemoglobin 29.9 PG 29.2 PG (27.0-34.0) (27.0-34.0) Mean Corpuscular Hemoglobin 34.3 % 32.9 % Concent (32.0-36.0) (32.0-36.0) Red Cell Distribution Width 15.4 % 15.7 % (11.6-17.2) (11.6-17.2) Platelet Count 222 TH/MM3 240 TH/MM3 (150-450) (150-450) Mean Platelet Volume 8.4 FL 7.9 FL (7.0-11.0) (7.0-11.0) Sodium Level 140 MEQ/L 144 MEQ/L (136-145) (136-145) Potassium Level 2.8 MEQ/L 3.7 MEQ/L (3.5-5.1) (3.5-5.1) Chloride Level 96 MEQ/L 101 MEQ/L (98-107) (98-107) Carbon Dioxide Level 39.9 MEQ/L 35.3 MEQ/L (21.0-32.0) (21.0-32.0) Anion Gap 4 MEQ/L (5-15) 8 MEQ/L (5-15) Blood Urea Nitrogen 30 MG/DL (7-18) 33 MG/DL (7-18) Creatinine 0.70 MG/DL 0.66 MG/DL (0.50-1.00) (0.50-1.00) Estimat Glomerular Filtration 82 ML/MIN (>89) 88 ML/MIN (>89) Rate Random Glucose 131 MG/DL 142 MG/DL (74-106) (74-106) Calcium Level 8.8 MG/DL 8.9 MG/DL (8.5-10.1) (8.5-10.1) Phosphorus Level 1.3 MG/DL (2.5-4.9) Magnesium Level 2.4 MG/DL (1.5-2.5) Test 03/12/17 03/12/17 03/12/17 03/13/17 08:30 13:15 23:30 01:38 Blood Gas Puncture Site LT RADIAL LT RADIAL Blood Gas Patient Temperature 98.6 98.6 Blood Gas HCO3 33 mmol/L 34 mmol/L (22-26) (22-26) Blood Gas Base Excess 8.6 mmol/L 9.3 mmol/L (-2-2) (-2-2) Blood Gas Oxygen Saturation 95 % (90-100) 95 % (90-100) Arterial Blood pH 7.42 7.40 (7.380-7.420) (7.380-7.420) Arterial Blood Partial 53 mmHg (38-42) 57 mmHg (38-42) Pressure CO2 Arterial Blood Partial 89 mmHg 99 mmHg Pressure O2 (61-120) (61-120) Arterial Blood Oxygen Content 15.9 Vol % 15.7 Vol % (12.0-20.0) (12.0-20.0) Arterial Blood 1.3 % (0-4) 1.4 % (0-4) Carboxyhemoglobin Arterial Blood Methemoglobin 1.4 % (0-2) 1.3 % (0-2) Blood Gas Hemoglobin 11.9 G/DL 11.6 G/DL (12.0-16.0) (12.0-16.0) Oxygen Delivery Device BIPAP BiPAP Blood Gas Ventilator Setting 14/PEEP5/RATE15 IPAP14/EPAP5 Blood Gas Inspired Oxygen 50 % 50 % Potassium Level 2.8 MEQ/L 3.1 MEQ/L (3.5-5.1) (3.5-5.1) Phosphorus Level 2.6 MG/DL (2.5-4.9) Test 03/13/17 05:00 Sodium Level 143 MEQ/L (136-145) Potassium Level 3.2 MEQ/L (3.5-5.1) Chloride Level 100 MEQ/L (98-107) Carbon Dioxide Level 36.5 MEQ/L (21.0-32.0) Anion Gap 7 MEQ/L (5-15) Blood Urea Nitrogen 30 MG/DL (7-18) Creatinine 0.66 MG/DL (0.50-1.00) Estimat Glomerular Filtration 88 ML/MIN (>89) Rate Random Glucose 150 MG/DL (74-106) Calcium Level 8.8 MG/DL (8.5-10.1) Phosphorus Level 2.4 MG/DL (2.5-4.9) Result Diagram: 03/12/17 0540 03/13/17 0500 Assessment and Plan Disease Oriented Problem List: (1) Acute respiratory failure with hypoxia (2) Acute exacerbation of chronic obstructive pulmonary disease (COPD) (3) Diastolic heart failure (4) Pneumonia Symptom Scale: (1) Dyspnea (2) Anxiety Pertinent Non-Medical Issues Psychosocial: Spiritual: Legal:Pt currently a&O, appropriate, able to make her own decisions. She completed [facility] today, naming her son Brent as [facility]. Ethical issues impacting care: Important Contacts Son Brent [phone] (*named as [facility] 03/11/17) spouse Doc [phone] / [phone] Prognosis This pt with COPD was admitted for pneumonia. Of note, she has had recent hospitalization at [facility] for Pneumonia. She has COPD, O2 dependent for several years. Current medical treatment maximized. High risk for continues respiratory decline and need for intubation. High risk for complications, potential [facility] if requires intubation 2/2 COPD. . Code Status: No Code Plan * Legal decision maker: Pt currently a&O, appropriate, able to make her own decisions. She completed [facility] 03/11, naming her son Brent as [facility]. * GOALS: wishes to cont maximum medical tx short of resuscitation. Open to ongoing conversations RE goals, hospice * FULL CODE. DNR * SYMPTOMS: --dyspnea:admitted for hypoxia, SOB, chest CT =Basilar lung consolidation and effusion. If goals are aggressive, May require intubation. (DNR) open to using Bipap. If goals comfort oriented would benefit from opiate; consider hydromorphone 0.51 mg IV every 3-4 hours prn dyspnea, in addition to benzodiazepine . Currently breathing comfortably on bipap -- anxiety/depression- hx anxiety + depression. Anxiety worsens w dyspnea. recommend xanax 0.25mg Q6 hr prn * Palliative care will continue to follow during hospital course as condition evolves, to assist patient/decision-maker with understanding of medical conditions, weighing benefits/burdens of treatment options, for clarification of goals of treatment. Additionally will assist with any symptoms of palliative concern Attestation To help prompt me to consider important information that might be impacting today's encounter and assessment, information from prior notes written by myself or my colleagues may have been "brought forward" into today's note. My signature on this note, however, is an attestation that I personally performed the exam, history, and/or decision-making noted today, and, unless otherwise indicated, the interactions with patient, family, and staff as well as the review of records all occurred today. I also attest that the listed assessment and stated plan reflect my best clinical judgment today based on the combination of historical information, prior notes, and today's exam/ interactions. When time spent is documented, it refers only to time spent today by the signer, or if indicated, combined time spent today by collaborating physician/nurse practitioner. Melanie Cervantes Mar 13, 2017 14:56
--- NOTE | 2017-03-13 20:10 | MB ---
cc: OTTO SABA DATE OF CONSULTATION: 03/13/2017 REASON FOR CONSULTATION: Respiratory failure and COPD. HISTORY OF PRESENT ILLNESS: This is a 72 year-old lady with COPD, previously known to me on home oxygen and multiple admissions to the hospital with respiratory failure, was at the nursing center and was brought to the emergency department with shortness of breath. She was treated for pneumonia this past month and was transferred from [facility] to [facility], and now admitted to [facility] with sepsis, pneumonia and respiratory failure. The patient was on BiPAP. She was now weaned to high flow oxygen at 70%. The patient is awake and complains of some shortness of breath and has some palpitations and leg swelling. She denied chest pain, denies hemoptysis and she is not having any fever or chills. PAST MEDICAL HISTORY: Significant for: 1. Severe COPD with emphysema. 2. Recurrent exacerbation of bronchitis. 3. History of pneumonia. 4. History of seizure disorder. 5. Anxiety. 6. Chronic neck pain from cervical disc disease. PAST SURGICAL HISTORY: 1. Cataract repair. 2. Appendectomy. 3. Partial hysterectomy and salpingo-oophorectomy. HABITS The patient was a smoker of one pack per day for over 40 years and then quit. No significant alcohol. FAMILY HISTORY Noncontributory. MEDICATIONS: 1. Prednisone 10 milligrams daily. 2. Diamox 250 milligrams daily. 3. Symbicort 160 milligrams x 4.5, two puffs b.i.d. 4. Alendronate 70 milligrams weekly. 5. Omeprazole 20 milligrams a day. 6. Gabapentin 600 milligrams q.i.d. 7. DuoNeb q.i.d. 8. Cardizem 360 milligrams a day. SYSTEM REVIEW: The patient has shortness of breath, abdominal bloating. She has leg swelling, joint pain, chronic neck pain. The remainder of the review of systems is as in present complaint. ALLERGIES: CIPRO IV CONTRAST IODINE KEFLEX LEVAQUIN ZITHROMAX MORPHINE BETADINE PHYSICAL EXAMINATION This elderly averagely built white female is anxious, mildly plethoric and dyspneic. VITAL SIGNS: Blood pressure 138/80, pulse 85, respiratory rate 24, temperature 97.5. HEENT: Head normocephalic. Pupils are reactive. Tongue is moist. Nasal mucosa injected. Throat is mildly injected. Neck: Supple. No bruits or thyroid enlargement. Chest: Distant breath sounds with expiratory wheezes bilaterally, prolonged expirations. Heart: The heart sounds are irregular S1-S2. No murmur. No S3. Abdomen: Soft, nontender, no organomegaly. Bowel sounds are active. Extremities: Mild edema with varicosities and decreased peripheral pulses. Reflexes are 1+ with no gross motor deficits. Cranial nerves grossly intact. Rectal: Exam is deferred. IMPRESSION 1. Hypercapnic hypoxic respiratory failure. 2. 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 Cor pulmonology 4. History of cervical spondylosis with chronic pain. 5. Sepsis. 6. Depression/anxiety. PLAN The patient has been placed on nebulized DuoNeb solution q.i.d., Symbicort 160 x 4.5, two puffs b.i.d. Continue Solu-Medrol at 40 mg IV q.8 hours. Antibiotic therapy continued per infectious disease service. Continue on theophylline 300 milligrams twice daily and get the theophylline level. Thank you for the consultation. MD MALENA Potts/MICHAEL /6:10 PM /7:43 PM
[2017-03-13] MEDS: methylPREDNISolone SOD SUCC 40 MG/1 ML VIAL IV SCH (21:26)
[2017-03-13] MEDS: ACETAMINOPHEN/HYDROcodone 325 MG/7.5 MG TAB PO PRN (21:26)
[2017-03-14] VITALS (23 sets, daily range): BP systolic 113–163; BP diastolic 59–91; PULSE 79–107; RESP 17–18; TEMP 97.8–98.5; O2SAT 93–99
[2017-03-14] MEDS: RESP: ALBUTEROL 2.5 MG/IPRATROPIUM 0.5 MG NEB (SCH) NEB (03:39)
[2017-03-14] MEDS: CHLORHEXIDINE GLUCONATE 2 % 1 PACK (2 CLOTHS) TOP SCH (04:00)
--- NOTE | 2017-03-14 04:55 | RADRPT ---
EXAM DATE/TIME: 03/14/2017 03:35 [facility] COMPARISON: CHEST SINGLE AP, March 11, 2017, 3:35. INDICATIONS : Respiratory disease. MEDICAL HISTORY : Seizures. Chronic obstructive pulmonary disease. SURGICAL HISTORY : Hysterectomy. ENCOUNTER: Subsequent ACUITY: 4 - 6 days PAIN SCORE: Non-responsive. LOCATION: Bilateral chest FINDINGS: Linear scarring right lung base. There is consolidation in the left lower lobe noted. Tiny left effus ion. Cardiomegaly. Aortic calcification. CONCLUSION: Left lower lobe consolidation and small left effusion suspected. Adi Benitez MD on March 14, 2017 at 4:53 Board Certified Radiologist. This report was verified electronically.
[2017-03-14] MEDS: AZTREONAM INJ 1,000 MG in SODIUM CHLORIDE 0.9% INJ 100 ML IV SCH ×3 (05:11→23:05)
[2017-03-14] MEDS: methylPREDNISolone SOD SUCC 40 MG/1 ML VIAL IV SCH ×3 (05:12→23:04)
[2017-03-14] MEDS: ENOXAPARIN SODIUM 40 MG/0.4 ML SYRINGE SQ SCH (05:13)
[2017-03-14 05:49] LABS: HEMATOCRIT 32.3 % (35.0-46.0); MEAN CELL VOLUME 89.4 FL (80.0-100.0); MEAN CORPUSCULAR HEMOGLOBIN 29.4 PG (27.0-34.0); MEAN CORPUSCULAR HGB CONC 32.8 % (32.0-36.0); PLATELET COUNT 259 TH/MM3 (150-450); RED BLOOD COUNT 3.61 MIL/MM3 (4.00-5.30); REVIEW FLAG FINAL; WHITE BLOOD COUNT 8.8 TH/MM3 (4.0-11.0)
[2017-03-14] MEDS ORDERED: THEOPHYLLINE ELIXIR 80 MG/15 ML CUP PO SCH (06:00)
[2017-03-14] MEDS: ACETAMINOPHEN/HYDROcodone 325 MG/7.5 MG TAB PO PRN ×3 (06:04→23:23)
[2017-03-14 06:35] LABS: BICARBONATE 35.3 MEQ/L (21.0-32.0); MAGNESIUM 2.1 MG/DL (1.5-2.5); POTASSIUM 3.9 MEQ/L (3.5-5.1)
[2017-03-14 06:38] LABS: BLOOD GAS BASE EXCESS 4.4 mmol/L (-2-2); BLOOD GAS CARBOXYHEMOGLOBIN 1.3 % (0-4); BLOOD GAS HCO3 30 mmol/L (22-26); BLOOD GAS METHEMOGLOBIN 1.3 % (0-2); BLOOD GAS O2 HGB SATURATION 94 % (90-100); BLOOD GAS OXYGEN CONTENT 16.9 Vol % (12.0-20.0); BLOOD GAS PCO2 60 mmHg (38-42); BLOOD GAS PO2 83 mmHg (61-120); BLOOD GAS TOTAL HGB 12.8 G/DL (12.0-16.0); TEMP CORR TO 98.6
[2017-03-14 06:39] LABS: CRITICAL VALUE YES; DRAW SITE LT RADIAL; FIO2 50 %; LITER FLOW 20 L/M; NUMBER OF ARTERIAL PUNCTURES 1; OXYGEN DEVICE HI FLO NC; STAT NO; ULNAR PULSE PRESENT
[2017-03-14] MEDS: INSULIN ASPART SUPPLEMENTAL SCALE SQ SCH ×4 (06:51→21:00)
[2017-03-14] MEDS: RESP: ALBUTEROL 2.5 MG/IPRATROPIUM 0.5 MG NEB (PRN) INH ×3 (07:46→21:12)
[2017-03-14] MEDS: CHLORHEXIDINE 0.12% (ORAL KIT) 15 ML CUP MT SCH ×2 (08:00→20:00)
[2017-03-14] MEDS: DOCUSATE SODIUM 50 MG/SENNA 8.6 MG TAB PO SCH ×2 (09:00→21:00)
[2017-03-14] MEDS: CHOLECALCIFEROL (VIT D3) 1000 UNIT TAB PO SCH (09:00)
[2017-03-14] MEDS: POTASSIUM CHLORIDE 25 MEQ EFFERVESCENT TAB PO SCH (09:00)
[2017-03-14] MEDS: FERROUS SULFATE 325 MG (65 MG ELEMENTAL IRON) TAB PO SCH (09:00)
[2017-03-14] MEDS: acetaZOLAMIDE 250 MG TAB PO SCH (09:32)
[2017-03-14] MEDS: GABAPENTIN 300 MG CAP PO SCH ×3 (09:35→17:42)
[2017-03-14] MEDS: DILTIAZEM-CD 180 MG CAP ER PO SCH (09:37)
[2017-03-14] MEDS: BUDESONIDE-FORMOTEROL 160/4.5 MCG INHALER INH SCH ×2 (09:38→23:08)
[2017-03-14] MEDS: TIOTROPIUM BROMIDE 18 MCG INH INH SCH (09:38)
[2017-03-14] MEDS: PANTOPRAZOLE SODIUM 40 MG VIAL IV SCH (09:38)
[2017-03-14] MEDS: FLUTICASONE PROPIONATE 50 MCG/ACT 16 GM NASAL SPRAY EACH NARE SCH ×2 (09:38→23:08)
--- NOTE | 2017-03-14 11:16 | HHI.PR ---
Subjective Remarks SOB and on a N/C 3L. Used Bipap last nite Objective Vital Signs Date Time Temp Pulse Resp B/P Pulse Ox O2 Delivery O2 Flow Rate FiO2 03/14/17 07:56 97.8 90 17 158/91 98 03/14/17 07:48 97 High Flow Nasal Cannula 20.00 50 03/14/17 07:48 94 03/14/17 07:00 Nasal Cannula 03/14/17 06:00 90 03/14/17 05:45 95 High Flow Nasal Cannula 20.00 50 03/14/17 04:19 98 40 03/14/17 04:00 98.1 90 17 140/74 98 03/14/17 04:00 90 03/14/17 02:00 87 03/14/17 01:25 97 40 03/14/17 00:00 85 03/14/17 00:00 98.1 85 18 113/59 97 03/13/17 23:30 98 High Flow Nasal Cannula 20.00 60 03/13/17 22:00 94 03/13/17 20:30 96 High Flow Nasal Cannula 20.00 70 03/13/17 20:00 98.7 105 17 145/69 99 03/13/17 20:00 105 03/13/17 19:00 Nasal Cannula 70 03/13/17 18:00 107 03/13/17 16:00 93 03/13/17 16:00 98.2 93 18 128/70 99 03/13/17 14:00 101 03/13/17 12:00 105 03/13/17 12:00 98.9 91 20 135/76 91 I/O 03/13/17 03/13/17 03/13/17 03/14/17 03/14/17 03/14/17 07:00 15:00 23:00 07:00 15:00 23:00 Intake Total 402 ml 170 ml 513 ml 560 ml Output Total 350 ml 500 ml 375 ml 425 ml Balance 52 ml -330 ml 138 ml 135 ml Intake Oral 240 ml 180 ml 420 ml IV Total 162 ml 170 ml 333 ml 140 ml Output Urine Total 350 ml 500 ml 375 ml 425 ml # Bowel Movements 0 1 0 0 Result Diagram: 03/14/17 0540 03/14/17 0525 Objective Remarks This elderly averagely built white female is anxious, mildly plethoric and dyspneic. HEENT: Head normocephalic. Pupils are reactive. Tongue is moist. Nasal mucosa dry. Throat has Thrush Neck: Supple. No bruits or thyroid enlargement. Chest: Distant breath sounds with expiratory wheezes bilaterally, prolonged expirations. Heart: The heart sounds are irregular S1-S2. No murmur. No S3. Abdomen: Soft, nontender, no organomegaly. Bowel sounds are active. Extremities: Mild edema with varicosities and decreased peripheral pulses. Reflexes are 1+ with no gross motor deficits. Cranial nerves grossly intact. Rectal: Exam is deferred. Assessment and Plan Assessment and Plan IMPRESSION 1. Hypercapnic hypoxic respiratory failure. 2. 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 CHF 4. History of cervical spondylosis with chronic pain. 5. Sepsis. 6. Depression/anxiety. Plan : 1. Wean o2 to 4 L. 2. Continue nebs qid , duoneb 3. Bipap at HS12/5 CM,35% 4. Solumedrol 40 mg IV q8h 5. Cont Diuretic daily 6. Giovani 24, 300 mg daily. 7. Transfer to [facility]. Ariane Dc MD Mar 14, 2017 11:16
[2017-03-14] MEDS: NYSTAT/DIPHENHY/LIDO MOUTHWASH (Adult) 120ML SWISH-SWAL SCH ×3 (13:00→23:05)
--- NOTE | 2017-03-14 15:35 | HHI.PR ---
Objective Vitals Vital Signs Date Time Temp Pulse Resp B/P Pulse Ox O2 Delivery O2 Flow Rate FiO2 03/14/17 12:00 98.0 90 17 141/91 98 03/14/17 12:00 90 03/14/17 10:00 90 03/14/17 08:00 90 03/14/17 07:56 97.8 90 17 158/91 98 03/14/17 07:48 97 High Flow Nasal Cannula 20.00 50 03/14/17 07:48 94 03/14/17 07:00 Nasal Cannula 03/14/17 06:00 90 03/14/17 05:45 95 High Flow Nasal Cannula 20.00 50 03/14/17 04:19 98 40 03/14/17 04:00 98.1 90 17 140/74 98 03/14/17 04:00 90 03/14/17 02:00 87 03/14/17 01:25 97 40 03/14/17 00:00 85 03/14/17 00:00 98.1 85 18 113/59 97 03/13/17 23:30 98 High Flow Nasal Cannula 20.00 60 03/13/17 22:00 94 03/13/17 20:30 96 High Flow Nasal Cannula 20.00 70 03/13/17 20:00 98.7 105 17 145/69 99 03/13/17 20:00 105 03/13/17 19:00 Nasal Cannula 70 03/13/17 18:00 107 03/13/17 16:00 93 03/13/17 16:00 98.2 93 18 128/70 99 I/O 03/13/17 03/13/17 03/13/17 03/14/17 03/14/17 03/14/17 07:00 15:00 23:00 07:00 15:00 23:00 Intake Total 402 ml 170 ml 513 ml 560 ml Output Total 350 ml 500 ml 375 ml 425 ml Balance 52 ml -330 ml 138 ml 135 ml Intake Oral 240 ml 180 ml 420 ml IV Total 162 ml 170 ml 333 ml 140 ml Output Urine Total 350 ml 500 ml 375 ml 425 ml # Bowel Movements 0 1 0 0 Result Diagram: 03/14/17 0540 03/14/17 0525 Date of Insertion: Mar 10, 2017 Almaz Murphy MD Mar 14, 2017 15:35 (1) Acute hypoxemic and hypercarbic respiratory failure Status: Acute (2) Acute exacerbation of chronic obstructive pulmonary disease (COPD) ICD Code: J44.1 Status: Acute (3) Severe sepsis ICD Code: A41.9 Status: Acute (4) Possible pneumonia Status: Acute (5) Diastolic heart failure ICD Code: I50.30 Status: Acute (6) COPD on home oxygen Status: Acute (7) Seizure disorder ICD Code: G40.909 Status: Acute Assessment and Plan History of seizure disorder - Will resume Neurontin its 100 mg decrease frequency to 3 times a day - Watch for seizures, seizure precautions -Neurochecks per ICU protocol RESP: Acute hypoxemic and hypercarbic respiratory failure Acute COPD exacerbation Pneumonia - BiPAP 07/09, I/O 50%. Serial ABG's as indicated - Alternating high flow nasal cannula - DuoNeb every 4 hours scheduled and when necessary - IV Solu-Medrol 125 mg 1 and 60 mg IV every 8 hours - Continue Symbicort ,theophylline Spiriva - 03/12 CXR-bilateral lung consolidation left greater than right. Small amount of pleural fluid -ID following-Dr. Byrd CV: Diastolic heart failure Pedal edema - Received 80 mg IV Lasix in the ED. Continue 20 mg IV Lasix every 12 - 03/10 2-D echo-ejection fraction less than 65%. No regional wall motion abnormalities. Grade 1 diastolic dysfunction. Moderate pulmonary hypertension (50-60 mmHg) - Lasix 40 mg x 1 dose GI: Constipation-resolved - Nothing by mouth and her clinical condition improves. - IV Protonix -Bowel regimen - 03/11 CT abdomen-diverticulosis, no free air, nonacute abnormal gallbladder -Bowel regimen : - Monitor renal function closely. -Replete electrolytes per ICU protocol - Continue Salinas catheter ID: - Antibiotics per ID. - 03/10 blood and sputum culture- NGTD HEME: -Monitor CBC, CMP -03/11 2 u PRBC -F/U Hemoccult- results ENDO: - Electrolyte replacement per protocol -Potassium chloride 40 mEq -Glucose monitoring per ICU protocol PROPH: - Bilateral lower extremity SCDs. Lovenox 40 mg subcutaneous daily. IV Protonix 40 mg daily LINES: - Utilize peripheral IVs, central line if needed Dispo: Palliative care team consulted for decisions regarding of goals of care. Patient's CODE STATUS changed to DNR/DNI Dr Hernandez on -03/12: Discussed with Brent BALL [phone], and provided medical update Problem Qualifiers (1) Diastolic heart failure: Qualified Code: I50.30 - Diastolic heart failure, unspecified heart failure chronicity Almaz Murphy MD Mar 14, 2017 15:35
--- NOTE | 2017-03-14 15:43 | HHI.PR ---
Subjective Remarks feels better awale and alert willing to do more therapy tolerating po well Objective Vitals Vital Signs Date Time Temp Pulse Resp B/P Pulse Ox O2 Delivery O2 Flow Rate FiO2 03/14/17 12:00 98.0 90 17 141/91 98 03/14/17 12:00 90 03/14/17 10:00 90 03/14/17 08:00 90 03/14/17 07:56 97.8 90 17 158/91 98 03/14/17 07:48 97 High Flow Nasal Cannula 20.00 50 03/14/17 07:48 94 03/14/17 07:00 Nasal Cannula 03/14/17 06:00 90 03/14/17 05:45 95 High Flow Nasal Cannula 20.00 50 03/14/17 04:19 98 40 03/14/17 04:00 98.1 90 17 140/74 98 03/14/17 04:00 90 03/14/17 02:00 87 03/14/17 01:25 97 40 03/14/17 00:00 85 03/14/17 00:00 98.1 85 18 113/59 97 03/13/17 23:30 98 High Flow Nasal Cannula 20.00 60 03/13/17 22:00 94 03/13/17 20:30 96 High Flow Nasal Cannula 20.00 70 03/13/17 20:00 98.7 105 17 145/69 99 03/13/17 20:00 105 03/13/17 19:00 Nasal Cannula 70 03/13/17 18:00 107 03/13/17 16:00 93 03/13/17 16:00 98.2 93 18 128/70 99 I/O 03/13/17 03/13/17 03/13/17 03/14/17 03/14/17 03/14/17 07:00 15:00 23:00 07:00 15:00 23:00 Intake Total 402 ml 170 ml 513 ml 560 ml Output Total 350 ml 500 ml 375 ml 425 ml Balance 52 ml -330 ml 138 ml 135 ml Intake Oral 240 ml 180 ml 420 ml IV Total 162 ml 170 ml 333 ml 140 ml Output Urine Total 350 ml 500 ml 375 ml 425 ml # Bowel Movements 0 1 0 0 Result Diagram: 03/14/17 0540 03/14/17 0525 Imaging Last Impressions Chest X-Ray 03/14/17 0600 Signed Impressions: Service Date/Time: March 03:35 - CONCLUSION: Left lower lobe consolidation and small left effusion suspected. Adi Benitez MD Abdomen/Pelvis CT 03/11/17 1517 Signed Impressions: Service Date/Time: Saturday, March 11, 2017 17:26 - CONCLUSION: Basilar lung consolidation and effusion. Abnormal gallbladder appearance, nonacute. Colonic diverticulosis. Abelino Chamapgne MD Objective Remarks awake and alert, no acute distress good sats at 3LNC anicteric decreased breath sounds, no rales or wheezes regular rhythm abdomen soft, nontender extremities no edema, good epripheral pulses neuro exam- unremarkable Date of Insertion: Mar 10, 2017 A/P Problem List: (1) Acute hypoxemic and hypercarbic respiratory failure Status: Acute (2) Acute exacerbation of chronic obstructive pulmonary disease (COPD) ICD Code: J44.1 Status: Acute (3) Severe sepsis ICD Code: A41.9 Status: Acute (4) Possible pneumonia Status: Acute (5) Diastolic heart failure ICD Code: I50.30 Status: Acute (6) COPD on home oxygen Status: Acute (7) Seizure disorder ICD Code: G40.909 Status: Acute Assessment and Plan 72 years old female History of seizure disorder - Neurontin 100 mg 3 times a day - Watch for seizures, seizure precautions -Neurochecks per ICU protocol - neuro stable RESP: Acute hypoxemic and hypercarbic respiratory failure Acute COPD exacerbation Pneumonia - BiPAP 12/, I/O 50%. Serial ABG's as indicated - Alternating high flow nasal cannula - DuoNeb every 4 hours scheduled and when necessary - IV Solu-Medrol 40 mg IV every 8 hours- decrease to q 12 in am if continues to improve - Continue Symbicort ,theophylline Spiriva - 03/12 CXR-bilateral lung consolidation left greater than right. Small amount of pleural fluid -ID following-Dr. Byrd - Dr. Bruce ff CV: Diastolic heart failure Pedal edema - Received 80 mg IV Lasix in the ED. Continue 20 mg IV Lasix every 12 - 03/10 2-D echo-ejection fraction less than 65%. No regional wall motion abnormalities. Grade 1 diastolic dysfunction. Moderate pulmonary hypertension (50-60 mmHg) - S/P Lasix 03/13 Lasix 40 mg x 1 dose GI: Constipation-resolved - IV Protonix - 03/11 CT abdomen-diverticulosis, no free air, nonacute abnormal gallbladder - continue Bowel regimen : - Monitor renal function closely. -Replete electrolytes per ICU protocol - Continue Ferrell catheter ID: - Antibiotics per ID. - Dr. Byrd ff. on Azactam - 03/10 blood and sputum culture- NGTD HEME: -Monitor CBC, CMP -03/11 2 u PRBC -F/U Hemoccult- results ENDO: - Electrolyte replacement per protocol -Potassium chloride 40 mEq -Glucose monitoring per ICU protocol PROPH: - Bilateral lower extremity SCDs. Lovenox 40 mg subcutaneous daily. IV Protonix 40 mg daily LINES: - Utilize peripheral IVs, central line if needed Dispo: Palliative care team consulted for decisions regarding of goals of care. Patient's CODE STATUS changed to DNR/DNI Dr Hernandez on -03/12: Discussed with Brent BALL [phone], and provided medical update transfer to medical floor keep ferrell today Our of bed to [facility] Problem Qualifiers (1) Diastolic heart failure: Qualified Code: I50.30 - Diastolic heart failure, unspecified heart failure chronicity Almaz Murphy MD Mar 14, 2017 15:43 Almaz Murphy MD Mar 14, 2017 15:43
--- NOTE | 2017-03-14 16:05 | HHI.IDPN ---
Subjective Subjective Remarks Patient is a 72-year-old female, with oxygen dependent COPD, brought into the hospital from a rehabilitation facility for evaluation of worsening shortness of breath. She was apparently recently hospitalized at [facility] with COPD exacerbation, and was treated for pneumonia. She was discharged to a [facility] for rehabilitation. Patient states that in the last 5 days she's been getting short of breath, and she was placed on BiPAP. She was not improving and was getting more short of breath so she was taken to the hospital for further evaluation and treatment. She complains of some left-sided chest pain. She states that she is not really coughing much. There's been no fever or chills. Her initial white count was 15,000. Her chest x-ray shows chronic fibrosis with no acute infiltrates. Patient currently is short of breath and is on a BiPAP mask. There is multiple antibiotic allergies including cephalosporins, quinolones, and Zithromax. Patient is not sure about her reaction but states some rash with Keflex. Infectious disease consultation has been requested to evaluate the patient. Notes reviewed Temps ok On nasal O2 Did BIPAP last night Not as SOB Not coughing Antibiotics Azactam Past Medical History COPD on home oxygen Diastolic heart failure Past history of seizure Anxiety Past Surgical History Appendectomy Cataract surgery Partial hysterectomy Left salpingo-oophorectomy Allergies: Coded Allergies: Betadine (Verified Allergy, Severe, EDEMA, SKIN BREAKDOWN, 08/13/16) Cephalosporins (Verified Allergy, Severe, YEAAST INFECT., 08/13/16) Cipro (Verified Allergy, Severe, GENERALIZED NUMBNESS, BREATHING PROBLEMS , 08/13/16) Contrast Media (Verified Allergy, Severe, HIVES, CARDIAC ARREST, 08/13/16) Iodine (Verified Allergy, Severe, SWELLING, SKIN BREAKDOWN, 08/13/16) Keflex (Verified Allergy, Severe, 08/13/16) Levaquin (Verified Allergy, Severe, NUMBNESS, SHORTNESS OF BREATH, 08/13/16) Zithromax (Verified Allergy, Severe, 08/13/16) Morphine (Verified Allergy, Mild, ITCHING, 08/13/16) PATIENT STARTED ITCHING AFTER SECOND DOSE OF MORPHINE, NO HIVES OR DIFFICULTY BREATHING NOTED. NURSE GOING TO CALL FOR ALVARADO ORDER PATIENT REFUSED IT. Barium Sulfate (Verified Allergy, Unknown, ITCHING AFTER ONE CUP E-Z CAT DRY, 08/13/16) Objective . Vital Signs Date Time Temp Pulse Resp B/P Pulse Ox O2 Delivery O2 Flow Rate FiO2 03/14/17 12:00 98.0 90 17 141/91 98 03/14/17 12:00 90 03/14/17 10:00 90 03/14/17 08:00 90 03/14/17 07:56 97.8 90 17 158/91 98 03/14/17 07:48 97 High Flow Nasal Cannula 20.00 50 03/14/17 07:48 94 03/14/17 07:00 Nasal Cannula 03/14/17 06:00 90 03/14/17 05:45 95 High Flow Nasal Cannula 20.00 50 03/14/17 04:19 98 40 03/14/17 04:00 98.1 90 17 140/74 98 03/14/17 04:00 90 03/14/17 02:00 87 03/14/17 01:25 97 40 03/14/17 00:00 85 03/14/17 00:00 98.1 85 18 113/59 97 03/13/17 23:30 98 High Flow Nasal Cannula 20.00 60 03/13/17 22:00 94 03/13/17 20:30 96 High Flow Nasal Cannula 20.00 70 03/13/17 20:00 98.7 105 17 145/69 99 03/13/17 20:00 105 03/13/17 19:00 Nasal Cannula 70 03/13/17 18:00 107 03/13/17 03/13/17 03/14/17 14:59 22:59 06:59 Intake Total 170 ml 513 ml 560 ml Output Total 500 ml 375 ml 425 ml Balance -330 ml 138 ml 135 ml Intake Oral 180 ml 420 ml IV Total 170 ml 333 ml 140 ml Output Urine Total 500 ml 375 ml 425 ml # Bowel Movements 1 0 0 . Laboratory Tests Test 03/14/17 05:40 White Blood Count 8.8 TH/MM3 Red Blood Count 3.61 MIL/MM3 Hemoglobin 10.6 GM/DL Hematocrit 32.3 % Mean Corpuscular Volume 89.4 FL Mean Corpuscular Hemoglobin 29.4 PG Mean Corpuscular Hemoglobin 32.8 % Concent Red Cell Distribution Width 16.0 % Platelet Count 259 TH/MM3 Mean Platelet Volume 8.0 FL Laboratory Tests Test 03/12/17 03/13/17 03/14/17 23:30 05:00 05:25 Potassium Level 3.1 MEQ/L 3.2 MEQ/L 3.9 MEQ/L Phosphorus Level 2.6 MG/DL 2.4 MG/DL 1.4 MG/DL Sodium Level 143 MEQ/L 139 MEQ/L Chloride Level 100 MEQ/L 99 MEQ/L Carbon Dioxide Level 36.5 MEQ/L 35.3 MEQ/L Anion Gap 7 MEQ/L 5 MEQ/L Blood Urea Nitrogen 30 MG/DL 31 MG/DL Creatinine 0.66 MG/DL 0.71 MG/DL Estimat Glomerular Filtration 88 ML/MIN 80 ML/MIN Rate Random Glucose 150 MG/DL 159 MG/DL Calcium Level 8.8 MG/DL 8.6 MG/DL Magnesium Level 2.1 MG/DL Imaging Last Impressions Abdomen/Pelvis CT 03/11/17 1517 Signed Impressions: Service Date/Time: Saturday, March 11, 2017 17:26 - CONCLUSION: Basilar lung consolidation and effusion. Abnormal gallbladder appearance, nonacute. Colonic diverticulosis. Abelino Champagne MD Chest X-Ray 03/11/17 0600 Signed Impressions: Service Date/Time: Saturday, March 11, 2017 03:35 - CONCLUSION: Increasing consolidation in the left lower lobe. Adi Benitez MD Physical Exam GENERAL: awake and alert, on nasal O2, more comfortable at rest SKIN: Warm and dry. No generalized rash, no ecchymoses HEAD: Atraumatic. Normocephalic. No temporal wasting, or tenderness. EYES: [place] conjunctiva. No petechia or hemorrhage. Pupils equal, round and reactive to light. No scleral icterus. No injection or drainage. EARS, NOSE AND THROAT: Nose without bleeding or purulent nasal discharge. Mucous membranes moist. Has BIPAP mask NECK: Trachea midline. Supple and not tender, no meningeal signs CARDIOVASCULAR: Regular rate and rhythm. No murmurs, rubs or gallops heard RESPIRATORY: Some rhonchi on R base ABDOMEN: Soft, non-tender, mildly distended. Bowel sounds present and normoactive. No guarding. No rebound. No organomegaly. EXTREMITIES: No clubbing, cyanosis, no joint effusion, has good ROM. No calf tenderness. Well perfused and warm. Has pitting edema both feet NEUROLOGICAL: Awake and alert. Moves all extremities. PSYCHIATRIC: Normal affect, calm and cooperative. LINE: No evidence of infection Assessment & Plan Remarks IMPRESSION COPD exacerbation, patient with O2 dependent COPD - clinically looks more of exacerbation than PNA Multiple Abx allergies Anemia RECOMMENDATION Continue Azactam for now - give 7 days Rx COPD exacerbation Palliative medicine evaluating patient and goals of care Monitor progress Sheila Byrd MD Mar 14, 2017 16:05
[2017-03-15] VITALS (20 sets, daily range): BP systolic 95–160; BP diastolic 52–83; PULSE 74–101; RESP 12–20; TEMP 97.6–98.5; O2SAT 93–97
[2017-03-15] MEDS: CHLORHEXIDINE GLUCONATE 2 % 1 PACK (2 CLOTHS) TOP SCH (04:00)
[2017-03-15] MEDS: methylPREDNISolone SOD SUCC 40 MG/1 ML VIAL IV SCH ×2 (04:17→20:40)
[2017-03-15] MEDS: AZTREONAM INJ 1,000 MG in SODIUM CHLORIDE 0.9% INJ 100 ML IV SCH ×3 (04:17→20:40)
[2017-03-15] MEDS: ENOXAPARIN SODIUM 40 MG/0.4 ML SYRINGE SQ SCH (04:17)
[2017-03-15] MEDS: INSULIN ASPART SUPPLEMENTAL SCALE SQ SCH ×4 (06:38→20:42)
[2017-03-15] MEDS: ACETAMINOPHEN/HYDROcodone 325 MG/7.5 MG TAB PO PRN ×2 (07:52→15:30)
[2017-03-15] MEDS: CHLORHEXIDINE 0.12% (ORAL KIT) 15 ML CUP MT SCH ×2 (08:00→20:00)
[2017-03-15] MEDS: GABAPENTIN 300 MG CAP PO SCH ×3 (08:28→17:53)
[2017-03-15] MEDS: TIOTROPIUM BROMIDE 18 MCG INH INH SCH (08:28)
[2017-03-15] MEDS: DILTIAZEM-CD 180 MG CAP ER PO SCH (08:29)
[2017-03-15] MEDS: CHOLECALCIFEROL (VIT D3) 1000 UNIT TAB PO SCH (08:29)
[2017-03-15] MEDS: FERROUS SULFATE 325 MG (65 MG ELEMENTAL IRON) TAB PO SCH (08:29)
[2017-03-15] MEDS: acetaZOLAMIDE 250 MG TAB PO SCH (08:29)
[2017-03-15] MEDS: THEOPHYLLINE ER 24 HR 300 MG CAPCR PO SCH (08:29)
[2017-03-15] MEDS: DOCUSATE SODIUM 50 MG/SENNA 8.6 MG TAB PO SCH ×2 (08:30→20:41)
[2017-03-15] MEDS: NYSTAT/DIPHENHY/LIDO MOUTHWASH (Adult) 120ML SWISH-SWAL SCH ×4 (08:30→20:40)
[2017-03-15] MEDS: BUDESONIDE-FORMOTEROL 160/4.5 MCG INHALER INH SCH ×2 (08:31→20:40)
[2017-03-15] MEDS: POTASSIUM CHLORIDE 25 MEQ EFFERVESCENT TAB PO SCH (08:31)
[2017-03-15] MEDS: FLUTICASONE PROPIONATE 50 MCG/ACT 16 GM NASAL SPRAY EACH NARE SCH ×2 (08:32→20:40)
[2017-03-15] MEDS ORDERED: PANTOPRAZOLE SOD 40 MG DELAYED RELEASE TAB PO SCH (09:00)
--- NOTE | 2017-03-15 09:29 | HHI.IDPN ---
Subjective Subjective Remarks Patient is a 72-year-old female, with oxygen dependent COPD, brought into the hospital from a rehabilitation facility for evaluation of worsening shortness of breath. She was apparently recently hospitalized at [facility] with COPD exacerbation, and was treated for pneumonia. She was discharged to a [facility] for rehabilitation. Patient states that in the last 5 days she's been getting short of breath, and she was placed on BiPAP. She was not improving and was getting more short of breath so she was taken to the hospital for further evaluation and treatment. She complains of some left-sided chest pain. She states that she is not really coughing much. There's been no fever or chills. Her initial white count was 15,000. Her chest x-ray shows chronic fibrosis with no acute infiltrates. Patient currently is short of breath and is on a BiPAP mask. There is multiple antibiotic allergies including cephalosporins, quinolones, and Zithromax. Patient is not sure about her reaction but states some rash with Keflex. Infectious disease consultation has been requested to evaluate the patient. Notes reviewed Temps ok On nasal O2 Did BIPAP last night Not as SOB Not coughing C/O acid reflux Antibiotics Azactam Past Medical History COPD on home oxygen Diastolic heart failure Past history of seizure Anxiety Past Surgical History Appendectomy Cataract surgery Partial hysterectomy Left salpingo-oophorectomy Allergies: Coded Allergies: Betadine (Verified Allergy, Severe, EDEMA, SKIN BREAKDOWN, 08/13/16) Cephalosporins (Verified Allergy, Severe, YEAAST INFECT., 08/13/16) Cipro (Verified Allergy, Severe, GENERALIZED NUMBNESS, BREATHING PROBLEMS , 08/13/16) Contrast Media (Verified Allergy, Severe, HIVES, CARDIAC ARREST, 08/13/16) Iodine (Verified Allergy, Severe, SWELLING, SKIN BREAKDOWN, 08/13/16) Keflex (Verified Allergy, Severe, 08/13/16) Levaquin (Verified Allergy, Severe, NUMBNESS, SHORTNESS OF BREATH, 08/13/16) Zithromax (Verified Allergy, Severe, 08/13/16) Morphine (Verified Allergy, Mild, ITCHING, 08/13/16) PATIENT STARTED ITCHING AFTER SECOND DOSE OF MORPHINE, NO HIVES OR DIFFICULTY BREATHING NOTED. NURSE GOING TO CALL FOR ALVARADO ORDER PATIENT REFUSED IT. Barium Sulfate (Verified Allergy, Unknown, ITCHING AFTER ONE CUP E-Z CAT DRY, 08/13/16) Objective . Vital Signs Date Time Temp Pulse Resp B/P Pulse Ox O2 Delivery O2 Flow Rate FiO2 03/15/17 08:52 22 03/15/17 08:38 96 Nasal Cannula 3.00 03/15/17 06:24 96 Nasal Cannula 3.00 03/15/17 06:00 81 03/15/17 06:00 100 Nasal Cannula 3.00 03/15/17 04:14 96 40 03/15/17 04:00 97.9 74 15 157/74 97 03/15/17 04:00 Bi-Pap 40 03/15/17 04:00 78 03/15/17 02:39 94 40 03/15/17 02:28 Bi-Pap 40 03/15/17 02:00 77 03/15/17 00:00 74 03/15/17 00:00 98.1 74 20 126/60 96 03/14/17 23:00 96 High Flow Nasal Cannula 20.00 40 03/14/17 22:30 95 40 03/14/17 22:00 83 03/14/17 21:12 96 High Flow Nasal Cannula 20.00 40 03/14/17 20:00 96 03/14/17 20:00 98.5 96 18 155/73 95 03/14/17 19:00 Nasal Cannula 40 03/14/17 18:00 107 156/78 93 03/14/17 17:00 79 134/63 98 03/14/17 16:00 98.5 95 139/63 96 03/14/17 15:00 96 145/81 99 03/14/17 14:00 103 163/79 95 03/14/17 13:00 93 141/70 98 03/14/17 12:00 98.0 90 17 141/91 98 03/14/17 12:00 90 03/14/17 10:00 90 03/14/17 03/14/17 03/15/17 15:00 23:00 07:00 Intake Total 490 ml 599 ml 720 ml Output Total 600 ml 550 ml 400 ml Balance -110 ml 49 ml 320 ml Intake Oral 400 ml 500 ml 480 ml IV Total 90 ml 99 ml 240 ml Output Urine Total 600 ml 550 ml 400 ml # Bowel Movements 2 . Laboratory Tests Test 03/14/17 05:40 White Blood Count 8.8 TH/MM3 Red Blood Count 3.61 MIL/MM3 Hemoglobin 10.6 GM/DL Hematocrit 32.3 % Mean Corpuscular Volume 89.4 FL Mean Corpuscular Hemoglobin 29.4 PG Mean Corpuscular Hemoglobin 32.8 % Concent Red Cell Distribution Width 16.0 % Platelet Count 259 TH/MM3 Mean Platelet Volume 8.0 FL Laboratory Tests Test 03/14/17 05:25 Sodium Level 139 MEQ/L Potassium Level 3.9 MEQ/L Chloride Level 99 MEQ/L Carbon Dioxide Level 35.3 MEQ/L Anion Gap 5 MEQ/L Blood Urea Nitrogen 31 MG/DL Creatinine 0.71 MG/DL Estimat Glomerular Filtration 80 ML/MIN Rate Random Glucose 159 MG/DL Calcium Level 8.6 MG/DL Phosphorus Level 1.4 MG/DL Magnesium Level 2.1 MG/DL Imaging Last Impressions Abdomen/Pelvis CT 03/11/17 1517 Signed Impressions: Service Date/Time: Saturday, March 11, 2017 17:26 - CONCLUSION: Basilar lung consolidation and effusion. Abnormal gallbladder appearance, nonacute. Colonic diverticulosis. Abelino Champagne MD Chest X-Ray 03/11/17 0600 Signed Impressions: Service Date/Time: Saturday, March 11, 2017 03:35 - CONCLUSION: Increasing consolidation in the left lower lobe. Adi Benitez MD Physical Exam GENERAL: awake and alert, on nasal O2, more comfortable at rest SKIN: Warm and dry. No generalized rash, no ecchymoses HEAD: Atraumatic. Normocephalic. No temporal wasting, or tenderness. EYES: [place] conjunctiva. No petechia or hemorrhage. Pupils equal, round and reactive to light. No scleral icterus. No injection or drainage. EARS, NOSE AND THROAT: Nose without bleeding or purulent nasal discharge. Mucous membranes moist. NECK: Trachea midline. Supple and not tender, no meningeal signs CARDIOVASCULAR: Regular rate and rhythm. No murmurs, rubs or gallops heard RESPIRATORY: Some rhonchi on R base ABDOMEN: Soft, non-tender, mildly distended. Bowel sounds present and normoactive. No guarding. No rebound. No organomegaly. EXTREMITIES: No clubbing, cyanosis, no joint effusion, has good ROM. No calf tenderness. Well perfused and warm. Has pitting edema both feet NEUROLOGICAL: Awake and alert. Moves all extremities. PSYCHIATRIC: Normal affect, calm and cooperative. LINE: No evidence of infection Assessment & Plan Remarks IMPRESSION COPD exacerbation, patient with O2 dependent COPD - clinically looks more of exacerbation than PNA Multiple Abx allergies Anemia RECOMMENDATION Continue Azactam for now - give 7 days Rx COPD exacerbation Palliative medicine evaluating patient and goals of care Monitor progress D/W Dr Sebastian Streeter available if needed this weekend Sheila Byrd MD Mar 15, 2017 09:29
--- NOTE | 2017-03-15 10:02 | HHI.PR ---
Subjective Remarks feels tired having reflux sensation- received KCL effervescent tab no abdominal pain this am- with bright red blood per rectum Objective Vitals Vital Signs Date Time Temp Pulse Resp B/P Pulse Ox O2 Delivery O2 Flow Rate FiO2 03/15/17 08:52 22 03/15/17 08:38 96 Nasal Cannula 3.00 03/15/17 06:24 96 Nasal Cannula 3.00 03/15/17 06:00 81 03/15/17 06:00 100 Nasal Cannula 3.00 03/15/17 04:14 96 40 03/15/17 04:00 97.9 74 15 157/74 97 03/15/17 04:00 Bi-Pap 40 03/15/17 04:00 78 03/15/17 02:39 94 40 03/15/17 02:28 Bi-Pap 40 03/15/17 02:00 77 03/15/17 00:00 74 03/15/17 00:00 98.1 74 20 126/60 96 03/14/17 23:00 96 High Flow Nasal Cannula 20.00 40 03/14/17 22:30 95 40 03/14/17 22:00 83 03/14/17 21:12 96 High Flow Nasal Cannula 20.00 40 03/14/17 20:00 96 03/14/17 20:00 98.5 96 18 155/73 95 03/14/17 19:00 Nasal Cannula 40 03/14/17 18:00 107 156/78 93 03/14/17 17:00 79 134/63 98 03/14/17 16:00 98.5 95 139/63 96 03/14/17 15:00 96 145/81 99 03/14/17 14:00 103 163/79 95 03/14/17 13:00 93 141/70 98 03/14/17 12:00 98.0 90 17 141/91 98 03/14/17 12:00 90 03/14/17 10:00 90 I/O 03/14/17 03/14/17 03/14/17 03/15/17 03/15/17 03/15/17 07:00 15:00 23:00 07:00 15:00 23:00 Intake Total 560 ml 490 ml 599 ml 720 ml Output Total 425 ml 600 ml 550 ml 400 ml Balance 135 ml -110 ml 49 ml 320 ml Intake Oral 420 ml 400 ml 500 ml 480 ml IV Total 140 ml 90 ml 99 ml 240 ml Output Urine Total 425 ml 600 ml 550 ml 400 ml # Bowel Movements 0 2 Result Diagram: 03/14/17 0540 03/14/17 0525 Imaging Last Impressions Chest X-Ray 03/14/17 0600 Signed Impressions: Service Date/Time: March 03:35 - CONCLUSION: Left lower lobe consolidation and small left effusion suspected. Adi Benitez MD Abdomen/Pelvis CT 03/11/17 1517 Signed Impressions: Service Date/Time: Saturday, March 11, 2017 17:26 - CONCLUSION: Basilar lung consolidation and effusion. Abnormal gallbladder appearance, nonacute. Colonic diverticulosis. Abelino Champagne MD Objective Remarks awake and alert, no acute distress good sats at 3LNC anicteric decreased breath sounds, no rales or wheezes regular rhythm abdomen soft, nontender extremities no edema, good \peripheral pulses rectal exam- external hemorrhoids, lax sphincter tone, rectaul vault- empty, bright red blood on withdrawal of examining finger neuro exam- unremarkable Urinary Catheter: Yes Assessment to: Continue Ferrell insert reason: Prolonged Immobilization Date of Insertion: Mar 10, 2017 A/P Problem List: (1) Acute hypoxemic and hypercarbic respiratory failure Status: Acute (2) Acute exacerbation of chronic obstructive pulmonary disease (COPD) ICD Code: J44.1 Status: Acute (3) Severe sepsis ICD Code: A41.9 Status: Acute (4) Possible pneumonia Status: Acute (5) Diastolic heart failure ICD Code: I50.30 Status: Acute (6) COPD on home oxygen Status: Acute (7) Seizure disorder ICD Code: G40.909 Status: Acute Assessment and Plan 72 years old female History of seizure disorder - Neurontin 100 mg 3 times a day - Watch for seizures, seizure precautions -Neurochecks - neuro stable RESP: Acute hypoxemic and hypercarbic respiratory failure Acute COPD exacerbation Pneumonia - BiPAP 12/, I/O 50%. Alternating high flow nasal cannula - DuoNeb every 4 hours scheduled and when necessary - IV Solu-Medrol 40 mg IV every 8 hours- decrease to q 12 - Continue Symbicort ,theophylline Spiriva - 03/12 CXR-bilateral lung consolidation left greater than right. Small amount of pleural fluid -ID following-Dr. Byrd- on Azactam - Dr. Bruce ff CV: Diastolic heart failure Pedal edema - Received 80 mg IV Lasix in the ED. Continue 20 mg IV Lasix every 12 - 03/10 2-D echo-ejection fraction less than 65%. No regional wall motion abnormalities. Grade 1 diastolic dysfunction. Moderate pulmonary hypertension (50-60 mmHg) - S/P Lasix 03/13 Lasix 40 mg x 1 dose GI: Acute lower GI bleeding 03/15 Constipation-resolved REflux sensation- received KCL effervescent - IV Protonix, per patient she takes Prilosec as OP- works better - 03/11 CT abdomen-diverticulosis, no free air, nonacute abnormal gallbladder - continue Bowel regimen - GI consult- known to Dr. Matson- EGD and colonoscopy - CBC now. standby RBC - NPO for now - in the event of scope today Hypokalemia - change K to KCL 10 meq po bid - Monitor renal function closely. - - Continue Ferrell catheter ID: - Antibiotics per ID. - Dr. Carson valladares. on Azactam - 03/10 blood and sputum culture- NGTD HEME: -Monitor CBC, CMP -03/11 2 u PRBC ENDO: - Electrolyte replacement per protocol -Potassium chloride 40 mEq -Glucose monitoring per ICU protocol PROPH: - Bilateral lower extremity SCDs. Lovenox 40 mg subcutaneous daily- hold for now with acute lower GIB. on Protonix 40 mg daily LINES: - Utilize peripheral IVs, central line if needed Dispo: Palliative care team consulted for decisions regarding of goals of care. Patient's CODE STATUS changed to DNR/DNI Dr Hernandez on -03/12: Discussed with Brent Jenkins POA [phone], and provided medical update transfer to medical floor keep ferrell today Out of bed to [facility] Problem Qualifiers (1) Diastolic heart failure: Qualified Code: I50.30 - Diastolic heart failure, unspecified heart failure chronicity Almaz Murphy MD Mar 15, 2017 10:02
--- NOTE | 2017-03-15 12:02 | HHI.HCPN ---
Reason for visit a. To assist with evaluation and management of symptoms including: dyspnea, anxiety b. To assist medical decision maker(s) with: better understanding of current medical conditions; weighing benefits/burdens of medical treatment options; making medical treatment decisions. Subjective/Interval History Pt seen to follow up on comfort, goals. Pt resp status improving, pulmonary following. Now kiersten NC 3L during the day, bipap at night. CXR yesterday = Left lower lobe consolidation and small left effusion suspected. H&H stable yesterday. Pt today reported with bright red blood per rectum, +clots. Hemodynamics stable.Now NPO, GI evaluation pending, may require endoscopy. + cont to report reflex discomfort, episode emesis with breakfast earlier. Pt seen in room no visitors present. Alert, oriented appropriate. Reports rectal bleeding, no associated discomfort. Reports ongoing reflux burning mid esophagus, she feels better controlled at home w omeprazole,requests omeprazole instead of protonix. Endorses nausea earlier + emesis w breakfast, improved now. She shares that in January she was evaluated at [facility] by GI for possible retained Neurontin in her esophagus-- s/p barium swallow. She feels she has cont to have this since that time, though reports no findings per their evaluation. No abdominal pain currently. No dyspnea, feels her breathing is much improved. Review of pending GI eval poss endoscopy, she indicates she would proceed if they may be able to treat /improve her conditions.Goals remain semi aggressive, short of CPR. She requests I call her son to provide update as he has not been in in a few days. D/w primary RN. \\ \\ \\ Pt seen in room, she has not been able to talk more with her son RE hospice, she wishes to cont current treatments in place now. . Family/friend interactions Call to son/HCS Brent. Provide update on condition, current assessment, diagnostics, resp status, rectal bleeding/pending GI evaluation. He shares he was unable to visit yesterday due to feeling ill himself , he plans to visit patient later this afternoon. All questions answered. He is appreciative of updates. . Advance Directives Health Care Surrogate: Copy in medical record Advance Directive Specifics Date completed: 03/11/17 Health Care Surrogate(s): Named son Brent As HCS Objective Vital Signs Date Time Temp Pulse Resp B/P Pulse Ox O2 Delivery O2 Flow Rate FiO2 03/15/17 10:00 82 03/15/17 08:52 22 03/15/17 08:38 96 Nasal Cannula 3.00 03/15/17 08:00 98.5 87 12 160/83 95 03/15/17 08:00 87 03/15/17 07:00 96 Nasal Cannula 3.00 03/15/17 06:24 96 Nasal Cannula 3.00 03/15/17 06:00 81 03/15/17 06:00 100 Nasal Cannula 3.00 03/15/17 04:14 96 40 03/15/17 04:00 97.9 74 15 157/74 97 03/15/17 04:00 Bi-Pap 40 03/15/17 04:00 78 03/15/17 02:39 94 40 03/15/17 02:28 Bi-Pap 40 03/15/17 02:00 77 03/15/17 00:00 74 03/15/17 00:00 98.1 74 20 126/60 96 03/14/17 23:00 96 High Flow Nasal Cannula 20.00 40 03/14/17 22:30 95 40 03/14/17 22:00 83 03/14/17 21:12 96 High Flow Nasal Cannula 20.00 40 03/14/17 20:00 96 03/14/17 20:00 98.5 96 18 155/73 95 03/14/17 19:00 Nasal Cannula 40 03/14/17 18:00 107 156/78 93 03/14/17 17:00 79 134/63 98 03/14/17 16:00 98.5 95 139/63 96 03/14/17 15:00 96 145/81 99 03/14/17 14:00 103 163/79 95 03/14/17 13:00 93 141/70 98 Intake & Output 03/15/17 03/15/17 07:00 19:00 Intake Total 1319 ml Output Total 950 ml Balance 369 ml Intake Oral 980 ml IV Total 339 ml Output Urine Total 950 ml Physical Exam CONSTITUTIONAL/GENERAL: This is an adequately nourished patient, visibly short of breath, worsens with conversation TUBES/LINES/DRAINS:Peripheral IV bilateral upper extremities, BiPAP mask, [place] catheter, SKIN: No jaundice, rashes, or lesions. No wounds seen anteriorly. Skin temperature appropriate. Not diaphoretic. HEAD: Atraumatic. Normocephalic. EYES: Pupils equal and round and reactive. Extraocular motions intact. No scleral icterus. No injection or drainage. Fundi not examined. ENT: Hearing grossly normal. Nose without bleeding or purulent drainage. Limited oropharynx exam due to BiPAP. Mucous membranes dry, no visible exudates. NECK: Trachea midline. Supple, nontender. No palpable thyroid enlargement or nodularity. CARDIOVASCULAR: Regular rate and rhythm without murmurs, mildly tachycardic 105. No JVD. Peripheral pulses symmetric. RESPIRATORY/CHEST: Symmetric, mildly labored respirations. +crackles, course rhonchi . Breath sounds equal bilaterally. GASTROINTESTINAL: Abdomen soft, round/obese, non-tender, nondistended. No hepato -splenomegaly, or palpable masses. No guarding. Bowel sounds present. GENITOURINARY: Without palpable bladder distension. Salinas catheter in place. MUSCULOSKELETAL: Extremities without clubbing, cyanosis, or edema. No joint tenderness or effusion noted. No mottling or clubbing. LYMPHATICS: No palpable cervical or supraclavicular adenopathy. NEUROLOGICAL: Awake and alert, oriented 3. Appropriate. Appears to have reasonable insight. Motor and sensory grossly within normal limits. Follows commands. Moves all 4 extremities. PSYCHIATRIC: + Mild anxiety evident w/ discussions regarding goals, tachypneic Diagnostic Tests Laboratory Laboratory Tests Test 03/12/17 03/12/17 03/13/17 03/13/17 13:15 23:30 01:38 05:00 Potassium Level 2.8 MEQ/L 3.1 MEQ/L 3.2 MEQ/L (3.5-5.1) (3.5-5.1) (3.5-5.1) Phosphorus Level 2.6 MG/DL 2.4 MG/DL (2.5-4.9) (2.5-4.9) Blood Gas Puncture Site LT RADIAL Blood Gas Patient Temperature 98.6 Blood Gas HCO3 34 mmol/L (22-26) Blood Gas Base Excess 9.3 mmol/L (-2-2) Blood Gas Oxygen Saturation 95 % (90-100) Arterial Blood pH 7.40 (7.380-7.420) Arterial Blood Partial 57 mmHg (38-42) Pressure CO2 Arterial Blood Partial 99 mmHg Pressure O2 (61-120) Arterial Blood Oxygen Content 15.7 Vol % (12.0-20.0) Arterial Blood 1.4 % (0-4) Carboxyhemoglobin Arterial Blood Methemoglobin 1.3 % (0-2) Blood Gas Hemoglobin 11.6 G/DL (12.0-16.0) Oxygen Delivery Device BiPAP Blood Gas Ventilator Setting [id number] Blood Gas Inspired Oxygen 50 % Sodium Level 143 MEQ/L (136-145) Chloride Level 100 MEQ/L (98-107) Carbon Dioxide Level 36.5 MEQ/L (21.0-32.0) Anion Gap 7 MEQ/L (5-15) Blood Urea Nitrogen 30 MG/DL (7-18) Creatinine 0.66 MG/DL (0.50-1.00) Estimat Glomerular Filtration 88 ML/MIN (>89) Rate Random Glucose 150 MG/DL (74-106) Calcium Level 8.8 MG/DL (8.5-10.1) Test 03/14/17 03/14/17 03/14/17 05:25 05:40 06:20 Sodium Level 139 MEQ/L (136-145) Potassium Level 3.9 MEQ/L (3.5-5.1) Chloride Level 99 MEQ/L (98-107) Carbon Dioxide Level 35.3 MEQ/L (21.0-32.0) Anion Gap 5 MEQ/L (5-15) Blood Urea Nitrogen 31 MG/DL (7-18) Creatinine 0.71 MG/DL (0.50-1.00) Estimat Glomerular Filtration 80 ML/MIN (>89) Rate Random Glucose 159 MG/DL (74-106) Calcium Level 8.6 MG/DL (8.5-10.1) Phosphorus Level 1.4 MG/DL (2.5-4.9) Magnesium Level 2.1 MG/DL (1.5-2.5) White Blood Count 8.8 TH/MM3 (4.0-11.0) Red Blood Count 3.61 MIL/MM3 (4.00-5.30) Hemoglobin 10.6 GM/DL (11.6-15.3) Hematocrit 32.3 % (35.0-46.0) Mean Corpuscular Volume 89.4 FL (80.0-100.0) Mean Corpuscular Hemoglobin 29.4 PG (27.0-34.0) Mean Corpuscular Hemoglobin 32.8 % Concent (32.0-36.0) Red Cell Distribution Width 16.0 % (11.6-17.2) Platelet Count 259 TH/MM3 (150-450) Mean Platelet Volume 8.0 FL (7.0-11.0) Blood Gas Puncture Site LT RADIAL Blood Gas Patient Temperature 98.6 Blood Gas HCO3 30 mmol/L (22-26) Blood Gas Base Excess 4.4 mmol/L (-2-2) Blood Gas Oxygen Saturation 94 % (90-100) Arterial Blood pH 7.32 (7.380-7.420) Arterial Blood Partial 60 mmHg (38-42) Pressure CO2 Arterial Blood Partial 83 mmHg Pressure O2 (61-120) Arterial Blood Oxygen Content 16.9 Vol % (12.0-20.0) Arterial Blood 1.3 % (0-4) Carboxyhemoglobin Arterial Blood Methemoglobin 1.3 % (0-2) Blood Gas Hemoglobin 12.8 G/DL (12.0-16.0) Oxygen Delivery Device HI CATRACHO NC Blood Gas Liter Flow 20 L/M Blood Gas Inspired Oxygen 50 % Result Diagram: 03/14/17 0540 03/14/17 0525 Imaging Last Impressions Chest X-Ray 03/14/17 0600 Signed Impressions: Service Date/Time: March 03:35 - CONCLUSION: Left lower lobe consolidation and small left effusion suspected. Adi Benitez MD Abdomen/Pelvis CT 03/11/17 1517 Signed Impressions: Service Date/Time: Saturday, March 11, 2017 17:26 - CONCLUSION: Basilar lung consolidation and effusion. Abnormal gallbladder appearance, nonacute. Colonic diverticulosis. Abelino Champagne MD Assessment and Plan Disease Oriented Problem List: (1) Acute respiratory failure with hypoxia (2) Acute exacerbation of chronic obstructive pulmonary disease (COPD) (3) Diastolic heart failure (4) Pneumonia Symptom Scale: (1) Dyspnea (2) Anxiety Pertinent Non-Medical Issues Psychosocial: Spiritual: Legal:Pt currently a&O, appropriate, able to make her own decisions. She completed HCS today, naming her son Brent as HCS. Ethical issues impacting care: Important Contacts Son Brent [phone] (*named as [facility] 03/11/17) spouse Doc [phone] / [phone] Prognosis This pt with COPD was admitted for pneumonia. Of note, she has had recent hospitalization at [facility] for Pneumonia. She has COPD, O2 dependent for several years. Current medical treatment maximized. High risk for continues respiratory decline and need for intubation. High risk for complications, potential for prolonged mech ventilation if requires intubation 2/2 COPD. . Code Status: No Code Plan * Legal decision maker: Pt currently a&O, appropriate, able to make her own decisions. She completed [facility] 03/11, naming her son Brent as [facility]. * GOALS: wishes to cont maximum medical tx short of resuscitation. Open to ongoing conversations RE goals, hospice. She does wish to proceed w GI evaluation and possible endoscopy if indicated. * FULL CODE. DNR * SYMPTOMS: --dyspnea:admitted for hypoxia, SOB, chest CT =Basilar lung consolidation and effusion. If goals are aggressive, May require intubation. (DNR) open to using Bipap. If goals comfort oriented would benefit from opiate; consider hydromorphone 0.51 mg IV every 3-4 hours prn dyspnea, in addition to benzodiazepine . Resp status improving, Bipap at night, NC daytime. -- anxiety/depression- hx anxiety + depression. Anxiety worsens w dyspnea. recommend xanax 0.25mg Q6 hr prn -- c/o reflux discomfort- has hx of. feels that her home omeprazole works better than protonix, also feels this has been ongoing/worse since possible retained pill in esophagus which she was seen at [facility] for in January. Of note, this may be exacerbated by acute hospitalization, steroids. She is on protonix 40mg daily, + magic mouthwash * Palliative care will continue to follow during hospital course as condition evolves, to assist patient/decision-maker with understanding of medical conditions, weighing benefits/burdens of treatment options, for clarification of goals of treatment. Additionally will assist with any symptoms of palliative concern Time Spent Total Floor Time (mins): 30 Attestation To help prompt me to consider important information that might be impacting today's encounter and assessment, information from prior notes written by myself or my colleagues may have been "brought forward" into today's note. My signature on this note, however, is an attestation that I personally performed the exam, history, and/or decision-making noted today, and, unless otherwise indicated, the interactions with patient, family, and staff as well as the review of records all occurred today. I also attest that the listed assessment and stated plan reflect my best clinical judgment today based on the combination of historical information, prior notes, and today's exam/ interactions. When time spent is documented, it refers only to time spent today by the signer, or if indicated, combined time spent today by collaborating physician/nurse practitioner. Melanie Cervantes Mar 15, 2017 12:02
[2017-03-15 12:54] LABS: HEMATOCRIT 29.9 % (35.0-46.0); MEAN CELL VOLUME 89.3 FL (80.0-100.0); MEAN CORPUSCULAR HEMOGLOBIN 29.8 PG (27.0-34.0); MEAN CORPUSCULAR HGB CONC 33.4 % (32.0-36.0); PLATELET COUNT 289 TH/MM3 (150-450); RED BLOOD COUNT 3.35 MIL/MM3 (4.00-5.30); RED CELL DISTRIBUTION WIDTH 15.5 % (11.6-17.2); REVIEW FLAG FINAL; WHITE BLOOD COUNT 8.9 TH/MM3 (4.0-11.0)
[2017-03-15] MEDS ORDERED: SODIUM CHLORIDE 0.9% FLUSH 10 ML FLUSH IV FLUSH PRN (19:00)
[2017-03-15 19:29] LABS: AUTOMATED NEUTROPHIL # 9.3 TH/MM3 (1.8-7.7); HEMATOCRIT 24.7 % (35.0-46.0); LYMPH % 3.1 % (9.0-44.0); LYMPHOCYTE # 0.3 TH/MM3 (1.0-4.8); MEAN CORPUSCULAR HEMOGLOBIN 30.9 PG (27.0-34.0); MEAN CORPUSCULAR HGB CONC 34.7 % (32.0-36.0); MONO % 5.2 % (0.0-8.0); NEUT % 91.7 % (16.0-70.0); PLATELET COUNT 246 TH/MM3 (150-450); RED BLOOD COUNT 2.77 MIL/MM3 (4.00-5.30); RED CELL DISTRIBUTION WIDTH 14.7 % (11.6-17.2); WHITE BLOOD COUNT 10.1 TH/MM3 (4.0-11.0)
[2017-03-15 19:31] LABS: HEMO FLAGS AUTO DIFF
[2017-03-15 19:42] LABS: APTT (PATIENT) 31.2 SEC (24.3-30.1); INTERNATIONAL NORMALIZED RATIO 1.1 RATIO; PROTHROMBIN TIME - PATIENT 12.7 SEC (9.8-11.6)
[2017-03-15 19:55] LABS: SCAN/DIFF AUTO DIFF CONFIRMED
[2017-03-15] MEDS ORDERED: PANTOPRAZOLE INJ 80 MG in SODIUM CHLORIDE 0.9% INJ 35 ML IV ONE (20:00)
[2017-03-15] MEDS: POTASSIUM CHLORIDE 10 MEQ CONTROLLED RELEASE TAB PO SCH (20:41)
[2017-03-15] MEDS: PANTOPRAZOLE INJ 80 MG in SODIUM CHLORIDE 0.9% INJ 100 ML IV SCH (21:00)
--- NOTE | 2017-03-15 21:26 | MB ---
cc: DARRIUS YEAGER,SINOJ DATE OF CONSULTATION 03/15/17 REASON FOR CONSULTATION GI bleed HISTORY The patient is a 74-year-old white female who was admitted to the hospital because of worsening COPD, shortness of breath and respiratory failure. She was in the intensive care unit, has been treated for the past 4-5 days. This morning she began to have bright red blood per rectum. It became worse during the day and she has had multiple large bloody stools. Her blood pressure has dropped a bit and she has responded to fluid challenge. She is receiving one of three units of packed red blood cells at this time. She has been taking Xarelto as a preventive in the hospital. She does not take anticoagulation usually at home. Her symptoms have been some lower abdominal discomfort and bloating for the past several days. She moved her bowels a few days ago with a fairly large bowel movement at that time. She is uncertain whether there was blood in it then. She was in the intensive care unit at that time. She has had a colonoscopy and an EGD. The colonoscopy may have been as many as 10 years ago and she does have diverticulosis. The upper endoscopy was more then 10 years ago. She is a patient of Dr. Matson. PAST MEDICAL HISTORY 1. Some degree of diastolic heart failure. 2. Anxiety PAST SURGICAL HISTORY 1. Appendectomy, 2. Cataracts, 3. Partial hysterectomy and left salpingo-oophorectomy. ALLERGIES Multiple including BETADINE CIPROFOXACIN IODINE KEFLEX LEVAQUIN ZITHROMAS (among others) She has been eating food, but she did not have any food today because of the blood in her stool earlier in the morning. Her Xarelto was not given this morning because of the blood. FAMILY HISTORY Noncontributory. SOCIAL HISTORY She does not smoke cigarettes. REVIEW OF SYSTEMS The patient continues to have mild lower abdominal discomfort. She denies any headache. She is anxious and worried about the bleeding. No chest pain, no shortness of breath. No nausea or hematemesis. She reports that she did have some swallowing difficulty on one occasion but does not generally have dysphagia. She has been taking proton pump inhibitor. PHYSICAL EXAMINATION GENERAL: She is a well-developed, well-nourished white female. She is somewhat pale. She is alert and oriented. Her skin is dry. She does not appear shocky. Her thought processes are clear and she is alert and oriented. HEENT: Mucous membranes are moist. CARDIAC: Heart sounds are normal. PULMONARY: Lungs are clear to auscultation. NECK: Supple. ABDOMEN: Soft. There is no tenderness. EXTREMITIES: Without cyanosis, clubbing or edema. There is no rash. LABORATORY DATA Hematocrit was 29% at 11 o'clock this morning, earlier yesterday it was 32.3, the day before that 31. White blood cell count 8900, platelet count 289,000. Protime - INR on 03/11/2017 was 0.9. PTT was 24.7. IMAGING STUDIES Abdominal and pelvic CT scan performed on admission 03/11/17 shows basilar lung consolidation, abnormal gallbladder appearance but chronic and colonic diverticulosis. IMPRESSION 1. Apparent lower GI bleed, rule out upper GI bleed. 2. Diverticulosis may well be the source of bleeding. 3. The patient was on Xarelto, did not receive it this morning. 4. COPD PLAN 1. Obtain protime and PTT and repeat CBC at this time. 2. Prepare for EGD and colonoscopy, although it may be possible to delay until tomorrow in hopes that we can prep the patient and have a better exam. 3. Consider fresh frozen plasma if that will reverse the effect of the Xarelto. 4. Protonix drip will be started in case of upper GI bleed. Darrius Yeager MD [facility]/ /6:35 PM /9:09 PM
[2017-03-15 23:42] LABS: HEMATOCRIT 32.2 % (35.0-46.0)
[2017-03-16] VITALS (16 sets, daily range): BP systolic 122–176; BP diastolic 65–81; PULSE 81–110; RESP 16–20; TEMP 97.9–98.4; O2SAT 92–96
[2017-03-16] MEDS: CHLORHEXIDINE GLUCONATE 2 % 1 PACK (2 CLOTHS) TOP SCH (03:23)
[2017-03-16] MEDS: AZTREONAM INJ 1,000 MG in SODIUM CHLORIDE 0.9% INJ 100 ML IV SCH ×3 (04:03→20:59)
[2017-03-16] MEDS: INSULIN ASPART SUPPLEMENTAL SCALE SQ SCH ×4 (05:42→20:57)
[2017-03-16] MEDS: PANTOPRAZOLE INJ 80 MG in SODIUM CHLORIDE 0.9% INJ 100 ML IV SCH ×2 (05:42→15:59)
[2017-03-16] MEDS: ACETAMINOPHEN/HYDROcodone 325 MG/7.5 MG TAB PO PRN ×2 (05:45→23:09)
[2017-03-16 07:06] LABS: BICARBONATE 30.6 MEQ/L (21.0-32.0); POTASSIUM 3.6 MEQ/L (3.5-5.1)
[2017-03-16] MEDS: CHLORHEXIDINE 0.12% (ORAL KIT) 15 ML CUP MT SCH ×2 (08:00→20:00)
[2017-03-16] MEDS: POTASSIUM CHLORIDE 10 MEQ CONTROLLED RELEASE TAB PO SCH ×2 (09:00→21:00)
[2017-03-16] MEDS: BUDESONIDE-FORMOTEROL 160/4.5 MCG INHALER INH SCH ×2 (09:00→21:01)
[2017-03-16] MEDS: methylPREDNISolone SOD SUCC 40 MG/1 ML VIAL IV SCH ×2 (09:00→20:59)
[2017-03-16] MEDS: THEOPHYLLINE ER 24 HR 300 MG CAPCR PO SCH (09:00)
[2017-03-16] MEDS: DOCUSATE SODIUM 50 MG/SENNA 8.6 MG TAB PO SCH ×2 (09:00→21:00)
[2017-03-16] MEDS: GABAPENTIN 300 MG CAP PO SCH ×3 (09:00→19:08)
[2017-03-16] MEDS: CHOLECALCIFEROL (VIT D3) 1000 UNIT TAB PO SCH (09:00)
[2017-03-16] MEDS: TIOTROPIUM BROMIDE 18 MCG INH INH SCH (09:00)
[2017-03-16] MEDS: acetaZOLAMIDE 250 MG TAB PO SCH (09:00)
[2017-03-16] MEDS: FLUTICASONE PROPIONATE 50 MCG/ACT 16 GM NASAL SPRAY EACH NARE SCH ×2 (09:00→21:01)
[2017-03-16] MEDS: FERROUS SULFATE 325 MG (65 MG ELEMENTAL IRON) TAB PO SCH (09:00)
[2017-03-16] MEDS: NYSTAT/DIPHENHY/LIDO MOUTHWASH (Adult) 120ML SWISH-SWAL SCH ×4 (09:00→20:59)
[2017-03-16] MEDS: DILTIAZEM-CD 180 MG CAP ER PO SCH (09:00)
--- NOTE | 2017-03-16 12:13 | HHI.GIFU ---
Subjective Remarks Pt resting in bed. Denies bleeding at this time. C/o bad reflux b/c she isn't getting omeprazole with her meals, says IV protonix does not work. (Mónica Gibson) Objective Vitals I&O Vital Signs Date Time Temp Pulse Resp B/P Pulse Ox O2 Delivery O2 Flow Rate FiO2 03/16/17 08:00 81 03/16/17 08:00 98.2 83 18 176/81 93 03/16/17 07:50 94 Nasal Cannula 2.50 03/16/17 07:00 95 Nasal Cannula 3.00 03/16/17 06:00 88 03/16/17 04:00 102 03/16/17 04:00 92 Nasal Cannula 3.00 03/16/17 04:00 93 Nasal Cannula 3.00 03/16/17 04:00 97.9 102 20 122/67 92 03/16/17 02:00 89 03/16/17 00:05 97.9 88 20 136/72 95 03/16/17 00:00 95 Bi-Pap 40 03/16/17 00:00 88 03/15/17 23:06 93 40 03/15/17 22:00 86 03/15/17 21:29 94 Nasal Cannula 3.00 03/15/17 20:00 98.0 101 20 120/70 97 03/15/17 20:00 101 03/15/17 19:00 95 Nasal Cannula 3.00 03/15/17 18:00 88 03/15/17 16:30 12 03/15/17 16:30 97.6 88 14 95/52 94 03/15/17 16:00 88 03/15/17 14:00 80 03/15/17 12:20 80 03/15/17 12:00 98.1 74 12 137/67 96 I/O 03/15/17 03/15/17 03/15/17 03/16/17 03/16/17 03/16/17 07:00 15:00 23:00 07:00 15:00 23:00 Intake Total 720 ml 385 ml 1100 ml 220 ml Output Total 400 ml 675 ml 250 ml 375 ml Balance 320 ml -290 ml 850 ml -155 ml Intake Oral 480 ml 280 ml IV Total 240 ml 105 ml 600 ml 220 ml Packed Cells 500 ml Output Urine Total 400 ml 675 ml 250 ml 375 ml # Bowel Movements 6 Laboratory Laboratory Tests Test 03/15/17 03/15/17 03/15/17 03/16/17 17:04 19:10 23:00 05:33 Blood Type O POSITIVE Crossmatch Leukocyte-Reduced Red Blood Cells Blood Bank Comment White Blood Count 10.1 Red Blood Count 2.77 Hemoglobin 8.6 11.0 Hematocrit 24.7 32.2 Mean Corpuscular Volume 89.0 Mean Corpuscular Hemoglobin 30.9 Mean Corpuscular Hemoglobin 34.7 Concent Red Cell Distribution Width 14.7 Platelet Count 246 Mean Platelet Volume 8.9 Neutrophils (%) (Auto) 91.7 Lymphocytes (%) (Auto) 3.1 Monocytes (%) (Auto) 5.2 Eosinophils (%) (Auto) 0.0 Basophils (%) (Auto) 0.0 Neutrophils # (Auto) 9.3 Lymphocytes # (Auto) 0.3 Monocytes # (Auto) 0.5 Eosinophils # (Auto) 0.0 Basophils # (Auto) 0.0 CBC Comment AUTO DIFF Differential Comment AUTO DIFF CONFIRMED Prothrombin Time 12.7 Prothromb Time International 1.1 Ratio Activated Partial 31.2 Thromboplast Time Sodium Level 139 Potassium Level 3.6 Chloride Level 100 Carbon Dioxide Level 30.6 Anion Gap 8 Blood Urea Nitrogen 38 Creatinine 0.64 Estimat Glomerular Filtration 91 Rate Random Glucose 180 Calcium Level 8.0 Imaging Last Impressions Chest X-Ray 03/14/17 0600 Signed Impressions: Service Date/Time: March 03:35 - CONCLUSION: Left lower lobe consolidation and small left effusion suspected. Adi Benitez MD Abdomen/Pelvis CT 03/11/17 1517 Signed Impressions: Service Date/Time: Saturday, March 11, 2017 17:26 - CONCLUSION: Basilar lung consolidation and effusion. Abnormal gallbladder appearance, nonacute. Colonic diverticulosis. Abelino Champagne MD Physical Exam HEENT: PERRL; normocephalic; atraumatic; no jaundice. CHEST: diminished CARDIAC: irr HR ABDOMEN: Soft, nondistended, TTP lower abd; no hepatosplenomegaly; bowel sounds faint EXTREMITIES: No clubbing, cyanosis, or edema. SKIN: Normal; no rash; no jaundice. FEATHER DUSTER WINDER: No focal deficits; alert and oriented times three. (Mónica Gibson) Assessment and Plan Plan ASSESSMENT - anemia - 8.8 on admission, became as low as 6.7, stable after PRBC on 03/11. - lower GIB - episodes copious rectal bleeding follow disimpaction by pt after constipation - GERD - takes omeprazole, c/o that protonix won't help - acute hypoxemic, hypercarbic respiratory failure, acute COPD exacerbation, PNA per primary, Dr Dc following, ID following PLAN - consider EGD/colonoscopy when respiratory status improved - if active bleed stat bleed scan - if active bleed notify GI - continue protonix - ROSENDO - monitor HH - supportive care - further recs to follow This pt seen by myself and Dr Campos and this note is written on his behalf ( Mónica Gibson) Plan Patient was seen and examined, agree with the above note, once respiratory status improved she will need a colonoscopy and endoscopy, if she started having active bleeding we might need to do emergency despite her respiratory status (Davin Campos MD) Mónica Gibson Mar 16, 2017 12:13 Davin Campos MD Mar 16, 2017 13:55
--- NOTE | 2017-03-16 15:08 | HHI.PR ---
Subjective Remarks patient stable no complains no reported hematemesis,nausea or vomiting Objective Vitals Vital Signs Date Time Temp Pulse Resp B/P Pulse Ox O2 Delivery O2 Flow Rate FiO2 03/16/17 08:00 81 03/16/17 08:00 98.2 83 18 176/81 93 03/16/17 07:50 94 Nasal Cannula 2.50 03/16/17 07:00 95 Nasal Cannula 3.00 03/16/17 06:00 88 03/16/17 04:00 102 03/16/17 04:00 92 Nasal Cannula 3.00 03/16/17 04:00 93 Nasal Cannula 3.00 03/16/17 04:00 97.9 102 20 122/67 92 03/16/17 02:00 89 03/16/17 00:05 97.9 88 20 136/72 95 03/16/17 00:00 95 Bi-Pap 40 03/16/17 00:00 88 03/15/17 23:06 93 40 03/15/17 22:00 86 03/15/17 21:29 94 Nasal Cannula 3.00 03/15/17 20:00 98.0 101 20 120/70 97 03/15/17 20:00 101 03/15/17 19:00 95 Nasal Cannula 3.00 03/15/17 18:00 88 03/15/17 16:30 12 03/15/17 16:30 97.6 88 14 95/52 94 03/15/17 16:00 88 I/O 03/15/17 03/15/17 03/15/17 03/16/17 03/16/17 03/16/17 07:00 15:00 23:00 07:00 15:00 23:00 Intake Total 720 ml 385 ml 1100 ml 220 ml Output Total 400 ml 675 ml 250 ml 375 ml Balance 320 ml -290 ml 850 ml -155 ml Intake Oral 480 ml 280 ml IV Total 240 ml 105 ml 600 ml 220 ml Packed Cells 500 ml Output Urine Total 400 ml 675 ml 250 ml 375 ml # Bowel Movements 6 Result Diagram: 03/15/17 2300 03/16/17 0533 Imaging Last Impressions Chest X-Ray 03/14/17 0600 Signed Impressions: Service Date/Time: March 03:35 - CONCLUSION: Left lower lobe consolidation and small left effusion suspected. Adi Benitez MD Abdomen/Pelvis CT 03/11/17 1517 Signed Impressions: Service Date/Time: Saturday, March 11, 2017 17:26 - CONCLUSION: Basilar lung consolidation and effusion. Abnormal gallbladder appearance, nonacute. Colonic diverticulosis. Abelino Champagne MD Objective Remarks awake and alert, no acute distress good sats at 3LNC anicteric decreased breath sounds, no rales or wheezes regular rhythm abdomen soft, nontender extremities no edema, good \peripheral pulses neuro exam- unremarkable Date of Insertion: Mar 10, 2017 A/P Problem List: (1) Acute hypoxemic and hypercarbic respiratory failure Status: Acute (2) Acute exacerbation of chronic obstructive pulmonary disease (COPD) ICD Code: J44.1 Status: Acute (3) Severe sepsis ICD Code: A41.9 Status: Acute (4) Possible pneumonia Status: Acute (5) Diastolic heart failure ICD Code: I50.30 Status: Acute (6) COPD on home oxygen Status: Acute (7) Seizure disorder ICD Code: G40.909 Status: Acute Assessment and Plan 72 years old female History of seizure disorder - Neurontin 100 mg 3 times a day - Watch for seizures, seizure precautions -Neurochecks - neuro stable RESP: Acute hypoxemic and hypercarbic respiratory failure Acute COPD exacerbation Pneumonia - BiPAP 07/09, I/O 50%. Alternating high flow nasal cannula - DuoNeb every 4 hours scheduled and when necessary - IV Solu-Medrol 40 mg IV every 8 hours- decrease to q 12 - Continue Symbicort ,theophylline Spiriva - 03/12 CXR-bilateral lung consolidation left greater than right. Small amount of pleural fluid -ID following-Dr. Byrd- on Azactam - Dr. Bruce ff CV: Diastolic heart failure Pedal edema - Received 80 mg IV Lasix in the ED. Continue 20 mg IV Lasix every 12 - 03/10 2-D echo-ejection fraction less than 65%. No regional wall motion abnormalities. Grade 1 diastolic dysfunction. Moderate pulmonary hypertension (50-60 mmHg) - S/P Lasix 03/13 Lasix 40 mg x 1 dose GI: Acute lower GI bleeding 03/15 Constipation-resolved REflux sensation- received KCL effervescent - IPPI - 03/11 CT abdomen-diverticulosis, no free air, nonacute abnormal gallbladder - continue Bowel regimen - GI ff- plan for eventual scope - CBC stable Hypokalemia - change K to KCL 10 meq po bid - Monitor renal function closely. - - Continue Ferrell catheter ID: - Antibiotics per ID. - Dr. Byrd ff. on Azactam - 03/10 blood and sputum culture- NGTD HEME: -Monitor CBC, CMP -03/11 2 u PRBC ENDO: - Electrolyte replacement per protocol -Potassium chloride 40 mEq -Glucose monitoring per ICU protocol PROPH: - Bilateral lower extremity SCDs. Lovenox 40 mg subcutaneous daily- hold for now with acute lower GIB. on Protonix 40 mg daily LINES: - Utilize peripheral IVs, central line if needed Dispo: Palliative care team consulted for decisions regarding of goals of care. Patient's CODE STATUS changed to DNR/DNI Dr Hernandez on -03/12: Discussed with Brent BALL [phone], and provided medical update transfer to medical floor keep ferrell today [facility] Problem Qualifiers (1) Diastolic heart failure: Qualified Code: I50.30 - Diastolic heart failure, unspecified heart failure chronicity Almaz Murphy MD Mar 16, 2017 15:08
[2017-03-17] VITALS (15 sets, daily range): BP systolic 123–162; BP diastolic 69–77; PULSE 81–105; RESP 16–24; TEMP 97.6–99.4; O2SAT 95–99
[2017-03-17] MEDS: CHLORHEXIDINE GLUCONATE 2 % 1 PACK (2 CLOTHS) TOP SCH (01:54)
[2017-03-17] MEDS: PANTOPRAZOLE INJ 80 MG in SODIUM CHLORIDE 0.9% INJ 100 ML IV SCH ×3 (02:02→22:18)
[2017-03-17 06:00] LABS: HEMATOCRIT 31.3 % (35.0-46.0); MEAN CELL VOLUME 87.9 FL (80.0-100.0); MEAN CORPUSCULAR HEMOGLOBIN 30.1 PG (27.0-34.0); MEAN CORPUSCULAR HGB CONC 34.3 % (32.0-36.0); PLATELET COUNT 371 TH/MM3 (150-450); RED BLOOD COUNT 3.56 MIL/MM3 (4.00-5.30); RED CELL DISTRIBUTION WIDTH 14.9 % (11.6-17.2); REVIEW FLAG FINAL; WHITE BLOOD COUNT 12.5 TH/MM3 (4.0-11.0)
[2017-03-17] MEDS: INSULIN ASPART SUPPLEMENTAL SCALE SQ SCH ×4 (07:16→20:38)
[2017-03-17] MEDS: ACETAMINOPHEN/HYDROcodone 325 MG/7.5 MG TAB PO PRN ×3 (07:22→20:12)
[2017-03-17] MEDS: CHLORHEXIDINE 0.12% (ORAL KIT) 15 ML CUP MT SCH ×2 (08:00→20:00)
[2017-03-17] MEDS: NYSTAT/DIPHENHY/LIDO MOUTHWASH (Adult) 120ML SWISH-SWAL SCH ×4 (08:48→20:14)
[2017-03-17] MEDS: DILTIAZEM-CD 180 MG CAP ER PO SCH (08:50)
[2017-03-17] MEDS: CHOLECALCIFEROL (VIT D3) 1000 UNIT TAB PO SCH (08:50)
[2017-03-17] MEDS: POTASSIUM CHLORIDE 10 MEQ CONTROLLED RELEASE TAB PO SCH ×2 (08:50→20:12)
[2017-03-17] MEDS: DOCUSATE SODIUM 50 MG/SENNA 8.6 MG TAB PO SCH ×2 (08:51→20:15)
[2017-03-17] MEDS: THEOPHYLLINE ER 24 HR 300 MG CAPCR PO SCH (08:51)
[2017-03-17] MEDS: FERROUS SULFATE 325 MG (65 MG ELEMENTAL IRON) TAB PO SCH (08:51)
[2017-03-17] MEDS: GABAPENTIN 300 MG CAP PO SCH ×3 (08:51→17:50)
[2017-03-17] MEDS: methylPREDNISolone SOD SUCC 40 MG/1 ML VIAL IV SCH ×2 (08:52→20:12)
[2017-03-17] MEDS: TIOTROPIUM BROMIDE 18 MCG INH INH SCH (08:52)
[2017-03-17] MEDS: BUDESONIDE-FORMOTEROL 160/4.5 MCG INHALER INH SCH ×2 (08:53→20:14)
[2017-03-17] MEDS: FLUTICASONE PROPIONATE 50 MCG/ACT 16 GM NASAL SPRAY EACH NARE SCH ×2 (08:53→20:14)
--- NOTE | 2017-03-17 10:55 | HHI.GIFU ---
Subjective Remarks Resting in bed in no distress. Patient is on 3L NC, O2 sat at 95%, which patient states is at her baseline. Reports mild diffuse abdominal pain. No nausea or vomiting. Tolerating diet. RN reports BM noted to be dark maroon color. (Puja Mccabe) Objective Vitals I&O Vital Signs Date Time Temp Pulse Resp B/P Pulse Ox O2 Delivery O2 Flow Rate FiO2 03/17/17 08:00 98.0 92 18 159/77 95 03/17/17 08:00 96 03/17/17 07:35 96 Nasal Cannula 2.50 03/17/17 07:00 95 Nasal Cannula 3.00 03/17/17 06:00 86 03/17/17 04:38 96 Nasal Cannula 3.00 03/17/17 04:00 97.6 81 139/76 99 03/17/17 04:00 81 03/17/17 02:00 81 03/17/17 00:09 18 03/17/17 00:00 84 03/17/17 00:00 98.2 84 16 123/69 96 03/16/17 22:30 96 40 03/16/17 22:00 81 03/16/17 21:02 94 Nasal Cannula 3.00 03/16/17 20:00 110 03/16/17 20:00 98.4 110 20 133/70 96 03/16/17 20:00 96 Nasal Cannula 3.00 03/16/17 18:00 83 03/16/17 16:00 98.4 94 16 140/65 94 03/16/17 16:00 87 03/16/17 14:00 107 03/16/17 12:00 93 03/16/17 12:00 98.1 93 20 160/75 94 I/O 03/16/17 03/16/17 03/16/17 03/17/17 03/17/17 03/17/17 07:00 15:00 23:00 07:00 15:00 23:00 Intake Total 220 ml 178 ml 435 ml 547 ml Output Total 375 ml 350 ml 500 ml 275 ml Balance -155 ml -172 ml -65 ml 272 ml Intake Oral 240 ml 480 ml IV Total 220 ml 178 ml 195 ml 67 ml Output Urine Total 375 ml 350 ml 500 ml 275 ml # Bowel Movements 1 Laboratory Laboratory Tests Test 03/17/17 05:05 White Blood Count 12.5 Red Blood Count 3.56 Hemoglobin 10.7 Hematocrit 31.3 Mean Corpuscular Volume 87.9 Mean Corpuscular Hemoglobin 30.1 Mean Corpuscular Hemoglobin 34.3 Concent Red Cell Distribution Width 14.9 Platelet Count 371 Mean Platelet Volume 9.4 Imaging Last Impressions Chest X-Ray 03/14/17 0600 Signed Impressions: Service Date/Time: March 03:35 - CONCLUSION: Left lower lobe consolidation and small left effusion suspected. Adi Benitez MD Abdomen/Pelvis CT 03/11/17 1517 Signed Impressions: Service Date/Time: Saturday, March 11, 2017 17:26 - CONCLUSION: Basilar lung consolidation and effusion. Abnormal gallbladder appearance, nonacute. Colonic diverticulosis. Abelino Champagne MD Physical Exam HEENT: PERRLA; normocephalic; atraumatic; no jaundice. CHEST: Diminished CARDIAC: RRR ABDOMEN: Soft, obese,nondistended, TTP lower abd; no hepatosplenomegaly; bowel sounds faint EXTREMITIES: No clubbing, cyanosis, or edema. SKIN: Normal; no rash; no jaundice. 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 - Lower GIB - episodes copious rectal bleeding follow disimpaction by pt after constipation. RN reports BM has been maroon colored - GERD - takes omeprazole, c/o that Protonix won't help - Acute hypoxemic, hypercarbic respiratory failure, acute COPD exacerbation, PNA per primary, Dr Dc following, ID following PLAN - Consider EGD/colonoscopy when respiratory status improved - If active bleed stat bleed scan - If active bleed notify GI - Continue Protonix - ROSENDO - Monitor HH, transfuse as necessary - Supportive care - Further recommendations to follow based on results of above. Patient seen and examined by Dr. Zabala and myself and this note is written on his behalf. (Puja Mccabe) Physician Comments Patient seen and examined Agree with above Continue with current supportive care Monitor labs (Milton Zabala MD) Puja Mccabe [facility] Mar 17, 2017 10:55 Milton Zabala MD Mar 17, 2017 16:23
[2017-03-17] MEDS: acetaZOLAMIDE 250 MG TAB PO SCH (12:39)
--- NOTE | 2017-03-17 15:07 | HHI.PR ---
Subjective Remarks no pain complains except for same generalized weakness no nausea or vomiting + black stools telemetry- sinus rate 100s low Objective Vitals Vital Signs Date Time Temp Pulse Resp B/P Pulse Ox O2 Delivery O2 Flow Rate FiO2 03/17/17 10:00 101 03/17/17 08:22 14 03/17/17 08:00 98.0 92 18 159/77 95 03/17/17 08:00 96 03/17/17 07:35 96 Nasal Cannula 2.50 03/17/17 07:00 95 Nasal Cannula 3.00 03/17/17 06:00 86 03/17/17 04:38 96 Nasal Cannula 3.00 03/17/17 04:00 97.6 81 139/76 99 03/17/17 04:00 81 03/17/17 02:00 81 03/17/17 00:00 84 03/17/17 00:00 98.2 84 16 123/69 96 03/16/17 22:30 96 40 03/16/17 22:00 81 03/16/17 21:02 94 Nasal Cannula 3.00 03/16/17 20:00 110 03/16/17 20:00 98.4 110 20 133/70 96 03/16/17 20:00 96 Nasal Cannula 3.00 03/16/17 18:00 83 03/16/17 16:00 98.4 94 16 140/65 94 03/16/17 16:00 87 I/O 03/16/17 03/16/17 03/16/17 03/17/17 03/17/17 03/17/17 07:00 15:00 23:00 07:00 15:00 23:00 Intake Total 220 ml 178 ml 435 ml 547 ml Output Total 375 ml 350 ml 500 ml 275 ml Balance -155 ml -172 ml -65 ml 272 ml Intake Oral 240 ml 480 ml IV Total 220 ml 178 ml 195 ml 67 ml Output Urine Total 375 ml 350 ml 500 ml 275 ml # Bowel Movements 1 Result Diagram: 03/17/17 0505 03/16/17 0533 Imaging Last Impressions Chest X-Ray 03/14/17 0600 Signed Impressions: Service Date/Time: March 03:35 - CONCLUSION: Left lower lobe consolidation and small left effusion suspected. Adi Benitez MD Abdomen/Pelvis CT 03/11/17 6367 Signed Impressions: Service Date/Time: Saturday, March 11, 2017 17:26 - CONCLUSION: Basilar lung consolidation and effusion. Abnormal gallbladder appearance, nonacute. Colonic diverticulosis. Abelino Champagne MD Objective Remarks awake and alert, no acute distress good sats at 3LNC anicteric decreased breath sounds, no rales or wheezes regular rhythm abdomen soft, nontender, no guarding extremities no edema, good peripheral pulses neuro exam- unremarkable Urinary Catheter: Yes Ferrell insert reason: Prolonged Immobilization Date of Insertion: Mar 10, 2017 A/P Problem List: (1) Acute hypoxemic and hypercarbic respiratory failure Status: Acute (2) Acute exacerbation of chronic obstructive pulmonary disease (COPD) ICD Code: J44.1 Status: Acute (3) Severe sepsis ICD Code: A41.9 Status: Acute (4) Possible pneumonia Status: Acute (5) Diastolic heart failure ICD Code: I50.30 Status: Acute (6) COPD on home oxygen Status: Acute (7) Seizure disorder ICD Code: G40.909 Status: Acute Assessment and Plan 72 years old female History of seizure disorder - Neurontin 100 mg 3 times a day - Watch for seizures, seizure precautions - Neurochecks - neuro stable RESP: Acute hypoxemic and hypercarbic respiratory failure Acute COPD exacerbation Pneumonia - BiPAP 07/09, I/O 50%. Alternating high flow nasal cannula - DuoNeb every 4 hours scheduled and when necessary - IV Solu-Medrol 40 mg IV every 8 hours- decrease to q 12 03/16 - Continue Symbicort ,theophylline Spiriva - 03/12 CXR-bilateral lung consolidation left greater than right. Small amount of pleural fluid -ID following-Dr. Byrd- on Azactam - Dr. Bruce ff CV: Diastolic heart failure Pedal edema - improved - Received 80 mg IV Lasix in the ED. Continue 20 mg IV Lasix every 12 - 03/10 2-D echo-ejection fraction less than 65%. No regional wall motion abnormalities. Grade 1 diastolic dysfunction. Moderate pulmonary hypertension (50-60 mmHg) GI: Acute lower GI bleeding 03/15 REflux sensation- received KCL effervescent - IV PPI - 03/11 CT abdomen-diverticulosis, no free air, nonacute abnormal gallbladder - continue Bowel regimen - GI ff- plan for eventual scope- this week - CBC stable Hypokalemia - KCL 10 meq po bid - Monitor renal function closely. - - Continue Ferrell catheter ID: - Antibiotics per ID. - Dr. Carson valaldares. on Azactam - 03/10 blood and sputum culture- NGTD HEME: -Monitor CBC, CMP -03/11 2 u PRBC ENDO: - Electrolyte replacement per protocol -Potassium chloride 40 mEq -Glucose monitoring per ICU protocol PROPH: - Bilateral lower extremity SCDs. Lovenox 40 mg subcutaneous daily- hold for now with acute lower GIB. on Protonix 40 mg daily LINES: - Utilize peripheral IVs, central line if needed Dispo: Palliative care team consulted for decisions regarding of goals of care. Patient's CODE STATUS changed to DNR/DNI Dr Hernandez on : Discussed with Brent BALL [phone], and provided medical update transfer to medical floor keep ferrell today Out of bed to [facility] Problem Qualifiers (1) Diastolic heart failure: Qualified Code: I50.30 - Diastolic heart failure, unspecified heart failure chronicity Almaz Murphy MD Mar 17, 2017 15:07
[2017-03-17] MEDS ORDERED: ALPRAZolam 0.25 MG TAB PO ONE (20:00)
[2017-03-18] VITALS (28 sets, daily range): BP systolic 115–180; BP diastolic 55–89; PULSE 70–154; RESP 16–20; TEMP 97.9–99; O2SAT 84–100
[2017-03-18] MEDS: CHLORHEXIDINE GLUCONATE 2 % 1 PACK (2 CLOTHS) TOP SCH (04:00)
[2017-03-18 05:12] LABS: AUTOMATED NEUTROPHIL # 14.9 TH/MM3 (1.8-7.7); HEMATOCRIT 29.5 % (35.0-46.0); LYMPH % 2.2 % (9.0-44.0); LYMPHOCYTE # 0.3 TH/MM3 (1.0-4.8); MEAN CORPUSCULAR HEMOGLOBIN 30.2 PG (27.0-34.0); MEAN CORPUSCULAR HGB CONC 33.9 % (32.0-36.0); MONO % 2.2 % (0.0-8.0); NEUT % 95.6 % (16.0-70.0); PLATELET COUNT 406 TH/MM3 (150-450); RED BLOOD COUNT 3.31 MIL/MM3 (4.00-5.30); RED CELL DISTRIBUTION WIDTH 14.8 % (11.6-17.2); WHITE BLOOD COUNT 15.5 TH/MM3 (4.0-11.0)
[2017-03-18 05:32] LABS: HEMO FLAGS AUTO DIFF
[2017-03-18 05:33] LABS: BICARBONATE 29.2 MEQ/L (21.0-32.0); POTASSIUM 3.7 MEQ/L (3.5-5.1)
[2017-03-18 05:49] LABS: CALCIUM-PROTEIN CORRECTED 8.5 MG/DL (8.5-10.1)
[2017-03-18] MEDS: ACETAMINOPHEN/HYDROcodone 325 MG/7.5 MG TAB PO PRN ×4 (06:08→22:03)
[2017-03-18] MEDS: INSULIN ASPART SUPPLEMENTAL SCALE SQ SCH ×4 (06:30→21:00)
[2017-03-18 07:06] LABS: BANDS 3 % (0-6); METAMYELOCYTES 1 % (0-1); MYELOCYTES 2 % (0-0); POLYS (SEG NEUTROPHILS) 91 % (16-70); WBC DIFF SAMPLE 100
[2017-03-18 07:07] LABS: PLATELET ESTIMATE SMEAR NORMAL (NORMAL); PLATELET MORPHOLOGY NORMAL (NORMAL); SCAN/DIFF FINAL DIFF MANUAL
[2017-03-18] MEDS: CHLORHEXIDINE 0.12% (ORAL KIT) 15 ML CUP MT SCH ×2 (07:50→20:00)
[2017-03-18] MEDS: DOCUSATE SODIUM 50 MG/SENNA 8.6 MG TAB PO SCH ×2 (09:00→22:03)
[2017-03-18] MEDS: BUDESONIDE-FORMOTEROL 160/4.5 MCG INHALER INH SCH ×2 (09:00→22:05)
[2017-03-18] MEDS: FLUTICASONE PROPIONATE 50 MCG/ACT 16 GM NASAL SPRAY EACH NARE SCH ×2 (09:00→22:08)
[2017-03-18] MEDS: TIOTROPIUM BROMIDE 18 MCG INH INH SCH (09:00)
[2017-03-18] MEDS: NYSTAT/DIPHENHY/LIDO MOUTHWASH (Adult) 120ML SWISH-SWAL SCH ×4 (09:00→22:59)
[2017-03-18] MEDS: methylPREDNISolone SOD SUCC 40 MG/1 ML VIAL IV SCH (09:36)
[2017-03-18] MEDS: THEOPHYLLINE ER 24 HR 300 MG CAPCR PO SCH (09:37)
[2017-03-18] MEDS: DILTIAZEM-CD 180 MG CAP ER PO SCH (09:37)
[2017-03-18] MEDS: FERROUS SULFATE 325 MG (65 MG ELEMENTAL IRON) TAB PO SCH (09:37)
[2017-03-18] MEDS: GABAPENTIN 300 MG CAP PO SCH ×3 (09:37→18:02)
[2017-03-18] MEDS: acetaZOLAMIDE 250 MG TAB PO SCH (09:38)
[2017-03-18] MEDS: POTASSIUM CHLORIDE 10 MEQ CONTROLLED RELEASE TAB PO SCH ×2 (09:38→22:04)
[2017-03-18] MEDS: CHOLECALCIFEROL (VIT D3) 1000 UNIT TAB PO SCH (09:39)
[2017-03-18] MEDS: PANTOPRAZOLE INJ 80 MG in SODIUM CHLORIDE 0.9% INJ 100 ML IV SCH (09:40)
--- NOTE | 2017-03-18 10:53 | HHI.IDPN ---
Subjective Subjective Remarks Patient is a 72-year-old female, with oxygen dependent COPD, brought into the hospital from a rehabilitation facility for evaluation of worsening shortness of breath. She was apparently recently hospitalized at [facility] with COPD exacerbation, and was treated for pneumonia. She was discharged to a [facility] for rehabilitation. Patient states that in the last 5 days she's been getting short of breath, and she was placed on BiPAP. She was not improving and was getting more short of breath so she was taken to the hospital for further evaluation and treatment. She complains of some left-sided chest pain. She states that she is not really coughing much. There's been no fever or chills. Her initial white count was 15,000. Her chest x-ray shows chronic fibrosis with no acute infiltrates. Patient currently is short of breath and is on a BiPAP mask. There is multiple antibiotic allergies including cephalosporins, quinolones, and Zithromax. Patient is not sure about her reaction but states some rash with Keflex. Infectious disease consultation has been requested to evaluate the patient. Notes reviewed Temps ok On nasal O2 Breathing is stable Finished Abx this weekend Antibiotics None Past Medical History COPD on home oxygen Diastolic heart failure Past history of seizure Anxiety Past Surgical History Appendectomy Cataract surgery Partial hysterectomy Left salpingo-oophorectomy Allergies: Coded Allergies: Betadine (Verified Allergy, Severe, EDEMA, SKIN BREAKDOWN, 08/13/16) Cephalosporins (Verified Allergy, Severe, YEAAST INFECT., 08/13/16) Cipro (Verified Allergy, Severe, GENERALIZED NUMBNESS, BREATHING PROBLEMS , 08/13/16) Contrast Media (Verified Allergy, Severe, HIVES, CARDIAC ARREST, 08/13/16) Iodine (Verified Allergy, Severe, SWELLING, SKIN BREAKDOWN, 08/13/16) Keflex (Verified Allergy, Severe, 08/13/16) Levaquin (Verified Allergy, Severe, NUMBNESS, SHORTNESS OF BREATH, 08/13/16) Zithromax (Verified Allergy, Severe, 08/13/16) Morphine (Verified Allergy, Mild, ITCHING, 08/13/16) PATIENT STARTED ITCHING AFTER SECOND DOSE OF MORPHINE, NO HIVES OR DIFFICULTY BREATHING NOTED. NURSE GOING TO CALL FOR ALVARADO ORDER PATIENT REFUSED IT. Barium Sulfate (Verified Allergy, Unknown, ITCHING AFTER ONE CUP E-Z CAT DRY, 08/13/16) Objective . Vital Signs Date Time Temp Pulse Resp B/P Pulse Ox O2 Delivery O2 Flow Rate FiO2 03/18/17 07:08 18 03/18/17 07:00 95 Nasal Cannula 3.00 03/18/17 06:00 71 03/18/17 04:00 98.8 75 16 136/71 97 03/18/17 04:00 70 03/18/17 02:00 70 03/18/17 00:00 98.1 78 16 133/65 96 03/18/17 00:00 78 03/17/17 22:59 96 40 03/17/17 22:59 95 Nasal Cannula 3.00 03/17/17 22:00 93 03/17/17 20:00 105 03/17/17 20:00 99.4 105 24 162/73 95 03/17/17 19:00 92 Nasal Cannula 3.00 03/17/17 18:00 97 03/17/17 16:00 96 03/17/17 16:00 98.0 97 22 154/72 97 03/17/17 14:00 101 03/17/17 12:00 97.8 99 19 142/72 96 03/17/17 12:00 99 03/17/17 03/17/17 03/18/17 15:00 23:00 07:00 Intake Total 594 ml 428 ml 312 ml Output Total 400 ml 600 ml 450 ml Balance 194 ml -172 ml -138 ml Intake Oral 500 ml 360 ml 240 ml IV Total 94 ml 68 ml 72 ml Output Urine Total 400 ml 600 ml 450 ml . Laboratory Tests Test 03/17/17 03/18/17 05:05 04:45 White Blood Count 12.5 TH/MM3 15.5 TH/MM3 Red Blood Count 3.56 MIL/MM3 3.31 MIL/MM3 Hemoglobin 10.7 GM/DL 10.0 GM/DL Hematocrit 31.3 % 29.5 % Mean Corpuscular Volume 87.9 FL 89.0 FL Mean Corpuscular Hemoglobin 30.1 PG 30.2 PG Mean Corpuscular Hemoglobin 34.3 % 33.9 % Concent Red Cell Distribution Width 14.9 % 14.8 % Platelet Count 371 TH/MM3 406 TH/MM3 Mean Platelet Volume 9.4 FL 9.1 FL Neutrophils (%) (Auto) 95.6 % Lymphocytes (%) (Auto) 2.2 % Monocytes (%) (Auto) 2.2 % Eosinophils (%) (Auto) 0.0 % Basophils (%) (Auto) 0.0 % Neutrophils # (Auto) 14.9 TH/MM3 Lymphocytes # (Auto) 0.3 TH/MM3 Monocytes # (Auto) 0.3 TH/MM3 Eosinophils # (Auto) 0.0 TH/MM3 Basophils # (Auto) 0.0 TH/MM3 CBC Comment AUTO DIFF Differential Total Cells 100 Counted Neutrophils % (Manual) 91 % Band Neutrophils % 3 % Monocytes % 3 % Neutrophils # (Manual) 15.0 TH/MM3 Metamyelocytes 1 % Myelocytes 2 % Differential Comment FINAL DIFF MANUAL Platelet Estimate NORMAL Platelet Morphology Comment NORMAL Red Cell Morphology Comment NORMAL Laboratory Tests Test 03/18/17 04:45 Sodium Level 139 MEQ/L Potassium Level 3.7 MEQ/L Chloride Level 103 MEQ/L Carbon Dioxide Level 29.2 MEQ/L Anion Gap 7 MEQ/L Blood Urea Nitrogen 25 MG/DL Creatinine 0.53 MG/DL Estimat Glomerular Filtration 113 ML/MIN Rate Random Glucose 138 MG/DL Calcium Level 7.3 MG/DL Protein Corrected Calcium 8.5 MG/DL Total Protein 5.0 GM/DL Imaging Last Impressions Abdomen/Pelvis CT 03/11/17 1517 Signed Impressions: Service Date/Time: Saturday, March 11, 2017 17:26 - CONCLUSION: Basilar lung consolidation and effusion. Abnormal gallbladder appearance, nonacute. Colonic diverticulosis. Abelino Champagne MD Chest X-Ray 03/11/17 0600 Signed Impressions: Service Date/Time: Saturday, March 11, 2017 03:35 - CONCLUSION: Increasing consolidation in the left lower lobe. Adi Benitez MD Physical Exam GENERAL: awake and alert, on nasal O2, more comfortable at rest SKIN: Warm and dry. No generalized rash, no ecchymoses HEAD: Atraumatic. Normocephalic. No temporal wasting, or tenderness. EYES: Mckee conjunctiva. No petechia or hemorrhage. Pupils equal, round and reactive to light. No scleral icterus. No injection or drainage. EARS, NOSE AND THROAT: Nose without bleeding or purulent nasal discharge. Mucous membranes moist. NECK: Trachea midline. Supple and not tender, no meningeal signs CARDIOVASCULAR: Regular rate and rhythm. No murmurs, rubs or gallops heard RESPIRATORY: Decreased at bases ABDOMEN: Soft, non-tender. Bowel sounds present and normoactive. No guarding. No rebound. No organomegaly. EXTREMITIES: No clubbing, cyanosis, no calf tenderness. Well perfused and warm. Has pitting edema both feet NEUROLOGICAL: Awake and alert. Moves all extremities. PSYCHIATRIC: Normal affect, calm and cooperative. LINE: No evidence of infection Assessment & Plan Remarks IMPRESSION COPD exacerbation, patient with O2 dependent COPD - clinically looks more of exacerbation than PNA - S/P Abx allergy Multiple Abx allergies Anemia Leukocytosis, worse today RECOMMENDATION On Rx for COPD exacerbation UA and C/S Follow CBC Palliative medicine evaluating patient and goals of care Monitor progress Sheila Byrd MD Mar 18, 2017 10:53
--- NOTE | 2017-03-18 10:55 | HHI.GIFU ---
Subjective Remarks Resting in bed. Mild shortness of breath with eating. Tolerating diet- eating crepes from [facility] that was brought in. No n/v. No abdominal pain. No obvious GI bleeding. (Ramona Boston) Objective Vitals I&O Vital Signs Date Time Temp Pulse Resp B/P Pulse Ox O2 Delivery O2 Flow Rate FiO2 03/18/17 07:08 18 03/18/17 07:00 95 Nasal Cannula 3.00 03/18/17 06:00 71 03/18/17 04:00 98.8 75 16 136/71 97 03/18/17 04:00 70 03/18/17 02:00 70 03/18/17 00:00 98.1 78 16 133/65 96 03/18/17 00:00 78 03/17/17 22:59 96 40 03/17/17 22:59 95 Nasal Cannula 3.00 03/17/17 22:00 93 03/17/17 20:00 105 03/17/17 20:00 99.4 105 24 162/73 95 03/17/17 19:00 92 Nasal Cannula 3.00 03/17/17 18:00 97 03/17/17 16:00 96 03/17/17 16:00 98.0 97 22 154/72 97 03/17/17 14:00 101 03/17/17 12:00 97.8 99 19 142/72 96 03/17/17 12:00 99 I/O 03/17/17 03/17/17 03/17/17 03/18/17 03/18/17 03/18/17 07:00 15:00 23:00 07:00 15:00 23:00 Intake Total 547 ml 594 ml 428 ml 312 ml Output Total 275 ml 400 ml 600 ml 450 ml Balance 272 ml 194 ml -172 ml -138 ml Intake Oral 480 ml 500 ml 360 ml 240 ml IV Total 67 ml 94 ml 68 ml 72 ml Output Urine Total 275 ml 400 ml 600 ml 450 ml Laboratory Laboratory Tests Test 03/18/17 04:45 White Blood Count 15.5 Red Blood Count 3.31 Hemoglobin 10.0 Hematocrit 29.5 Mean Corpuscular Volume 89.0 Mean Corpuscular Hemoglobin 30.2 Mean Corpuscular Hemoglobin 33.9 Concent Red Cell Distribution Width 14.8 Platelet Count 406 Mean Platelet Volume 9.1 Neutrophils (%) (Auto) 95.6 Lymphocytes (%) (Auto) 2.2 Monocytes (%) (Auto) 2.2 Eosinophils (%) (Auto) 0.0 Basophils (%) (Auto) 0.0 Neutrophils # (Auto) 14.9 Lymphocytes # (Auto) 0.3 Monocytes # (Auto) 0.3 Eosinophils # (Auto) 0.0 Basophils # (Auto) 0.0 CBC Comment AUTO DIFF Differential Total Cells 100 Counted Neutrophils % (Manual) 91 Band Neutrophils % 3 Monocytes % 3 Neutrophils # (Manual) 15.0 Metamyelocytes 1 Myelocytes 2 Differential Comment FINAL DIFF MANUAL Platelet Estimate NORMAL Platelet Morphology Comment NORMAL Red Cell Morphology Comment NORMAL Sodium Level 139 Potassium Level 3.7 Chloride Level 103 Carbon Dioxide Level 29.2 Anion Gap 7 Blood Urea Nitrogen 25 Creatinine 0.53 Estimat Glomerular Filtration 113 Rate Random Glucose 138 Calcium Level 7.3 Protein Corrected Calcium 8.5 Total Protein 5.0 Imaging Last Impressions Chest X-Ray 03/14/17 0600 Signed Impressions: Service Date/Time: March 03:35 - CONCLUSION: Left lower lobe consolidation and small left effusion suspected. Adi Benitez MD Abdomen/Pelvis CT 03/11/17 1517 Signed Impressions: Service Date/Time: Saturday, March 11, 2017 17:26 - CONCLUSION: Basilar lung consolidation and effusion. Abnormal gallbladder appearance, nonacute. Colonic diverticulosis. Abelino Champagne MD Physical Exam HEENT: Normocephalic; atraumatic; no jaundice. CHEST: Mildly labored, tachypneic with eating. Diminished breath sounds. O2 3L via n/c. CARDIAC: RRR ABDOMEN: Soft, obese,nondistended, nontender; no hepatosplenomegaly; bowel sounds faint EXTREMITIES: No clubbing, cyanosis, or edema. SKIN: Normal; no rash; no jaundice. 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 S/P 4 units of PRBC. HH currently stable at 10.0/29.5. Tolerating diet. No n/v. No abdominal pain. No further rectal bleeding. Protonix Gtt. - Lower GIB with copious amounts of rectal bleeding follow disimpaction by pt after constipation. S/P 4 units PRBC. No further bleeding at this time. HH 10.0/29.5. Plan is for egd/colonoscopy once respiratory status optimized. - GERD. On Protonix Gtt, will change to BID dosing. - Acute hypoxemic, hypercarbic respiratory failure, acute COPD exacerbation, PNA per primary, Dr Dc following, ID following. Currently on 3L via n/c (this is also how much she takes at home), but she does have mild labored breathing/tachypnea with exertion/eating. - Leukocytosis. WBC 15.5. BCx no growth 5 days. - Diastolic heart failure, seizure d/o per attending. PLAN - ROSENDO - D/C protonix gtt - Protonix 40mg IV BID - Monitor HH - Transfuse as necessary - Notify GI of active bleeding - If active bleeding, stat bleed scan - Supportive care - Further recommendations to follow based on results of above. - Plan for egd/colonoscopy once respiratory status optimized - Patient seen and examined by Dr. Zabala and myself and this note is written on his behalf. (Ramona Boston) Physician Comments Patient seen and examined Agree with above Continue with current supportive care Monitor labs Endoscopy when more stable (Milton Zabala MD) Ramona Boston Mar 18, 2017 10:55 Milton Zabala MD Mar 18, 2017 12:17
[2017-03-18] MEDS: PANTOPRAZOLE SODIUM 40 MG VIAL IV PUSH SCH ×2 (12:31→22:58)
--- NOTE | 2017-03-18 12:45 | HHI.PR ---
Subjective Remarks SOB and on a N/C 4L. Used Bipap last nite Has some edema. Seems depressed Objective Vital Signs Date Time Temp Pulse Resp B/P Pulse Ox O2 Delivery O2 Flow Rate FiO2 03/18/17 10:00 76 03/18/17 08:00 80 03/18/17 07:08 18 03/18/17 07:00 95 Nasal Cannula 3.00 03/18/17 06:00 71 03/18/17 04:00 98.8 75 16 136/71 97 03/18/17 04:00 70 03/18/17 02:00 70 03/18/17 00:00 98.1 78 16 133/65 96 03/18/17 00:00 78 03/17/17 22:59 96 40 03/17/17 22:59 95 Nasal Cannula 3.00 03/17/17 22:00 93 03/17/17 20:00 105 03/17/17 20:00 99.4 105 24 162/73 95 03/17/17 19:00 92 Nasal Cannula 3.00 03/17/17 18:00 97 03/17/17 16:00 96 03/17/17 16:00 98.0 97 22 154/72 97 03/17/17 14:00 101 I/O 03/17/17 03/17/17 03/17/17 03/18/17 03/18/17 03/18/17 07:00 15:00 23:00 07:00 15:00 23:00 Intake Total 547 ml 594 ml 428 ml 312 ml Output Total 275 ml 400 ml 600 ml 450 ml Balance 272 ml 194 ml -172 ml -138 ml Intake Oral 480 ml 500 ml 360 ml 240 ml IV Total 67 ml 94 ml 68 ml 72 ml Output Urine Total 275 ml 400 ml 600 ml 450 ml Result Diagram: 03/18/17 0445 03/18/17 0445 Objective Remarks This elderly averagely built white female is anxious, and face mildly plethoric. HEENT: Head normocephalic. Pupils are reactive. Tongue is moist. Nasal mucosa dry. Throat clear. Neck: Supple. No bruits or thyroid enlargement. Chest: Distant breath sounds with expiratory wheezes bilaterally, prolonged expirations.Occ Crackles. Heart: The heart sounds are irregular S1-S2. No murmur. No S3. Abdomen: Soft, nontender, no organomegaly. Bowel sounds are active. Extremities: Mild edema with varicosities and decreased peripheral pulses. Reflexes are 1+ with no gross motor deficits. Rectal: Exam is deferred. Assessment and Plan Assessment and Plan IMPRESSION 1. Hypercapnic hypoxic respiratory failure. 2. 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 CHF 4. History of cervical spondylosis with chronic pain. 5. Sepsis. 6. Depression/anxiety. Plan : 1. Wean o2 to 4 L. 2. Continue nebs qid , duoneb 3. Bipap at HS 12/5 CM,35% 4. Solumedrol 40 mg IV q12h 5. Cont Diuretic daily 6. Giovani 24, 300 mg daily. 7. Will Arrange Home Bipap with Trilogy vent and O2 Ariane Dc MD Mar 18, 2017 12:45
--- NOTE | 2017-03-18 14:03 | HHI.PR ---
Subjective Remarks feeling better no episodes of GI bleedings tolerating po well Objective Vitals Vital Signs Date Time Temp Pulse Resp B/P Pulse Ox O2 Delivery O2 Flow Rate FiO2 03/18/17 10:00 76 03/18/17 08:00 80 03/18/17 07:08 18 03/18/17 07:00 95 Nasal Cannula 3.00 03/18/17 06:00 71 03/18/17 04:00 98.8 75 16 136/71 97 03/18/17 04:00 70 03/18/17 02:00 70 03/18/17 00:00 98.1 78 16 133/65 96 03/18/17 00:00 78 03/17/17 22:59 96 40 03/17/17 22:59 95 Nasal Cannula 3.00 03/17/17 22:00 93 03/17/17 20:00 105 03/17/17 20:00 99.4 105 24 162/73 95 03/17/17 19:00 92 Nasal Cannula 3.00 03/17/17 18:00 97 03/17/17 16:00 96 03/17/17 16:00 98.0 97 22 154/72 97 03/17/17 14:00 101 I/O 03/17/17 03/17/17 03/17/17 03/18/17 03/18/17 03/18/17 06:59 14:59 22:59 06:59 14:59 22:59 Intake Total 547 ml 594 ml 428 ml 312 ml Output Total 275 ml 400 ml 600 ml 450 ml Balance 272 ml 194 ml -172 ml -138 ml Intake Oral 480 ml 500 ml 360 ml 240 ml IV Total 67 ml 94 ml 68 ml 72 ml Output Urine Total 275 ml 400 ml 600 ml 450 ml Result Diagram: 03/18/17 0445 03/18/17 0445 Imaging Last Impressions Chest X-Ray 03/14/17 0600 Signed Impressions: Service Date/Time: March 03:35 - CONCLUSION: Left lower lobe consolidation and small left effusion suspected. Adi Benitez MD Abdomen/Pelvis CT 03/11/17 1517 Signed Impressions: Service Date/Time: Saturday, March 11, 2017 17:26 - CONCLUSION: Basilar lung consolidation and effusion. Abnormal gallbladder appearance, nonacute. Colonic diverticulosis. Abelino Champagne MD Objective Remarks awake and alert, no acute distress good sats at 3LNC anicteric decreased breath sounds, no rales or wheezes regular rhythm abdomen soft, nontender, no guarding extremities no edema, good peripheral pulses neuro exam- unremarkable Urinary Catheter: Yes Assessment to: Continue Salinas insert reason: Prolonged Immobilization Date of Insertion: Mar 10, 2017 A/P Problem List: (1) Acute hypoxemic and hypercarbic respiratory failure Status: Acute (2) Acute exacerbation of chronic obstructive pulmonary disease (COPD) ICD Code: J44.1 Status: Acute (3) Severe sepsis ICD Code: A41.9 Status: Acute (4) Possible pneumonia Status: Acute (5) Diastolic heart failure ICD Code: I50.30 Status: Acute (6) COPD on home oxygen Status: Acute (7) Seizure disorder ICD Code: G40.909 Status: Acute Assessment and Plan 72 years old female History of seizure disorder - Neurontin 100 mg 3 times a day - Watch for seizures, seizure precautions - Neurochecks - neuro stable RESP: Acute hypoxemic and hypercarbic respiratory failure Acute COPD exacerbation - 02 dependent Pneumonia - BiPAP 07/09, I/O 50%. Alternating high flow nasal cannula - DuoNeb every 4 hours scheduled and when necessary - IV Solu-Medrol 40 mg decrease to 30 mg q 12 03/18 - Continue Symbicort ,theophylline Spiriva - 03/12 CXR-bilateral lung consolidation left greater than right. Small amount of pleural fluid - ID following-Dr. Byrd- on Azactam - Dr. Bruce ff- arrange for biPAp as OP CV: Diastolic heart failure Pedal edema - improved - Received 80 mg IV Lasix in the ED. Continue 20 mg IV Lasix every 12 - 03/10 2-D echo-ejection fraction less than 65%. No regional wall motion abnormalities. Grade 1 diastolic dysfunction. Moderate pulmonary hypertension (50-60 mmHg) GI: Acute lower GI bleeding 03/15 REflux sensation- received KCL effervescent - IV PPI - 03/11 CT abdomen-diverticulosis, no free air, nonacute abnormal gallbladder - continue Bowel regimen - GI ff- plan for eventual scope- this week - CBC stable Hypokalemia - KCL 10 meq po bid - Monitor renal function closely. - - Continue Salinas catheter ID: - Antibiotics per ID. - Dr. Byrd ff. on Azactam - 03/10 blood and sputum culture- NGTD HEME: -Monitor CBC, CMP -03/11 2 u PRBC ENDO: - Electrolyte replacement per protocol -Potassium chloride 40 mEq -Glucose monitoring per ICU protocol PROPH: - Bilateral lower extremity SCDs. Lovenox 40 mg subcutaneous daily- hold for now with acute lower GIB. on Protonix 40 mg daily LINES: - Utilize peripheral IVs, central line if needed Dispo: Palliative care team consulted for decisions regarding of goals of care. 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 does not want SNF Problem Qualifiers (1) Diastolic heart failure: Qualified Code: I50.30 - Diastolic heart failure, unspecified heart failure chronicity Almaz Murphy MD Mar 18, 2017 14:02
[2017-03-18] MEDS ORDERED: ONDANSETRON HCL 4 MG/2 ML VIAL IV PUSH PRN (20:00)
[2017-03-18] MEDS ORDERED: methylPREDNISolone SOD SUCC 40 MG/1 ML VIAL IV SCH (21:00)
[2017-03-18] MEDS: predniSONE 20 MG TAB PO SCH (22:03)
[2017-03-18] MEDS ORDERED: MORPHINE SULFATE 4 MG/ML INJ IV PUSH PRN (22:15)
[2017-03-18] MEDS: NITROGLYCERIN 0.4 MG SL 25 TABS/BTL SL PRN ×3 (22:26→22:39)
--- NOTE | 2017-03-18 22:43 | RADRPT ---
EXAM DATE/TIME: 03/18/2017 22:29 [place] COMPARISON: CHEST SINGLE AP, March 14, 2017, 3:35. INDICATIONS : Shortness of breath. MEDICAL HISTORY : Seizures. Chronic obstructive pulmonary disease. SURGICAL HISTORY : Hysterectomy. ENCOUNTER: Subsequent ACUITY: 1 week PAIN SCORE: 0/10 LOCATION: Bilateral chest FINDINGS: There is mild left base infiltrate, improved. Right lung is clear. No large effusion seen. No evidenc e of pneumothorax. Heart size stable, within normal limits. CONCLUSION: Improving left base infiltrate, currently mild. Abelino Mchugh MD on March 18, 2017 at 22:40 Board Certified Radiologist. This report was verified electronically.
[2017-03-18] MEDS ORDERED: DILTIAZEM HCL 25 MG/5 ML VIAL IV ONE (23:15)
[2017-03-18] MEDS ORDERED: HYDROmorphone HCL PF 1 MG/ML VIAL IV PUSH PRN (23:15)
[2017-03-19] VITALS (31 sets, daily range): BP systolic 61–127; BP diastolic 39–61; PULSE 72–134; RESP 18; TEMP 98.4–100.1; O2SAT 0–99
[2017-03-19] MEDS: ACETAMINOPHEN/HYDROcodone 325 MG/7.5 MG TAB PO PRN ×2 (02:16→06:28)
[2017-03-19] MEDS: CHLORHEXIDINE GLUCONATE 2 % 1 PACK (2 CLOTHS) TOP SCH (04:00)
--- NOTE | 2017-03-19 05:00 | EKG ---
Date Performed: 03/18/2017 Time Performed: 22:37:19 PTAGE: 72 years EKG: probable SINUS TACHYCARDIA ABNORMAL RHYTHM ECG Compared to the PREVIOUS TRACING rate has increased PREVIOUS TRACIN03/10/2017 01.22 DOCTOR: Pantera Ley Interpretating Date/Time 03/19/2017 04:59:51
[2017-03-19] MEDS: INSULIN ASPART SUPPLEMENTAL SCALE SQ SCH ×2 (06:44→11:00)
[2017-03-19] MEDS: CHLORHEXIDINE 0.12% (ORAL KIT) 15 ML CUP MT SCH (07:05)
--- NOTE | 2017-03-19 07:30 | EKG ---
Date Performed: 03/19/2017 Time Performed: 06:22:46 PTAGE: 72 years EKG: Sinus tachycardia. Poor R wave progression - probable normal variant Borderline ECG Compare d to the PREVIOUS TRACING Rate has slowed. PREVIOUS TRACIN03/18/2017 22.37 DOCTOR: Pantera Ley Interpretating Date/Time 03/19/2017 07:28:16
[2017-03-19] MEDS: GABAPENTIN 300 MG CAP PO SCH (09:00)
[2017-03-19] MEDS: THEOPHYLLINE ER 24 HR 300 MG CAPCR PO SCH (09:00)
[2017-03-19] MEDS: acetaZOLAMIDE 250 MG TAB PO SCH (09:00)
[2017-03-19] MEDS: CHOLECALCIFEROL (VIT D3) 1000 UNIT TAB PO SCH (09:00)
[2017-03-19] MEDS: predniSONE 20 MG TAB PO SCH (09:00)
[2017-03-19] MEDS: NYSTAT/DIPHENHY/LIDO MOUTHWASH (Adult) 120ML SWISH-SWAL SCH (09:00)
[2017-03-19] MEDS: DILTIAZEM-CD 180 MG CAP ER PO SCH (09:00)
[2017-03-19] MEDS: FLUTICASONE PROPIONATE 50 MCG/ACT 16 GM NASAL SPRAY EACH NARE SCH (09:00)
[2017-03-19] MEDS: TIOTROPIUM BROMIDE 18 MCG INH INH SCH (09:00)
[2017-03-19] MEDS: BUDESONIDE-FORMOTEROL 160/4.5 MCG INHALER INH SCH (09:00)
[2017-03-19] MEDS: POTASSIUM CHLORIDE 10 MEQ CONTROLLED RELEASE TAB PO SCH (09:00)
[2017-03-19] MEDS: DOCUSATE SODIUM 50 MG/SENNA 8.6 MG TAB PO SCH (09:00)
[2017-03-19] MEDS: FERROUS SULFATE 325 MG (65 MG ELEMENTAL IRON) TAB PO SCH (09:00)
[2017-03-19] MEDS ORDERED: LORazepam 2 MG/ML VIAL IV PUSH PRN (10:15)
[2017-03-19] MEDS: PANTOPRAZOLE SODIUM 40 MG VIAL IV PUSH SCH (11:00)
--- NOTE | 2017-03-19 11:31 | HHI.PR ---
Subjective Remarks patient overnight - tacycardic- increasing 02 requirement no wlethargic, tachycardic, tachypneic, hypotensive longidiscussion with son Objective Vitals Vital Signs Date Time Temp Pulse Resp B/P Pulse Ox O2 Delivery O2 Flow Rate FiO2 03/19/17 09:10 78 100 03/19/17 09:00 Bi-Pap 100 03/19/17 07:00 113 83/56 84 03/19/17 07:00 88 Non-Rebreather 10.00 03/19/17 06:33 103 80/52 99 03/19/17 06:30 106 93 03/19/17 06:00 93 87/51 98 03/19/17 06:00 93 03/19/17 05:30 93 97 03/19/17 05:00 92 78/47 97 03/19/17 04:30 94 96 03/19/17 04:00 98.4 104 18 94/56 94 03/19/17 04:00 104 03/19/17 04:00 104 94/56 94 03/19/17 04:00 104 94/56 94 03/19/17 03:45 99 99 03/19/17 03:30 106 98 03/19/17 03:15 112 86 03/19/17 03:00 105 109/54 99 03/19/17 02:45 100 84/52 98 03/19/17 02:30 103 91/52 97 03/19/17 02:15 109 96/61 97 03/19/17 02:00 101 91/54 95 03/19/17 02:00 101 03/19/17 01:45 110 95/50 97 03/19/17 01:30 107 97/55 96 03/19/17 01:15 116 102/57 96 03/19/17 01:00 116 108/58 98 03/19/17 00:45 119 103/55 94 03/19/17 00:30 122 100/58 96 03/19/17 00:29 18 03/19/17 00:15 122 104/55 96 03/19/17 00:00 128 03/19/17 00:00 128 127/56 96 03/19/17 00:00 100.1 128 18 127/56 96 03/19/17 00:00 128 127/56 96 03/18/17 23:45 134 119/60 97 03/18/17 23:30 132 120/65 97 03/18/17 23:23 149 03/18/17 23:15 149 126/65 98 03/18/17 23:03 18 03/18/17 23:00 146 135/67 98 03/18/17 22:45 154 115/64 100 03/18/17 22:36 152 133/68 99 03/18/17 22:00 132 180/78 86 03/18/17 22:00 95 Non-Rebreather 15.00 03/18/17 22:00 86 Non-Rebreather 100 03/18/17 22:00 132 03/18/17 21:57 130 179/86 84 03/18/17 21:00 102 141/68 94 03/18/17 20:00 113 147/73 93 03/18/17 20:00 93 Nasal Cannula 4.00 03/18/17 20:00 113 03/18/17 20:00 99.0 113 20 147/74 93 03/18/17 19:05 93 Nasal Cannula 3.00 03/18/17 18:00 84 03/18/17 17:00 79 138/65 96 03/18/17 16:00 86 03/18/17 16:00 98.3 77 138/65 97 03/18/17 15:00 86 127/55 93 03/18/17 14:00 76 03/18/17 14:00 101 123/82 93 03/18/17 13:00 84 145/67 95 03/18/17 12:00 81 03/18/17 12:00 97.9 90 146/66 96 I/O 03/18/17 03/18/17 03/18/17 03/19/17 03/19/17 03/19/17 07:00 15:00 23:00 07:00 15:00 23:00 Intake Total 312 ml 720 ml 240 ml 200 ml Output Total 450 ml 1000 ml 750 ml 225 ml Balance -138 ml -280 ml -510 ml -25 ml Intake Oral 240 ml 720 ml 240 ml 200 ml IV Total 72 ml 0 ml 0 ml Output Urine Total 450 ml 1000 ml 750 ml 225 ml # Bowel Movements 1 0 0 Result Diagram: 03/18/1744403/18/17444 Imaging Last Impressions Chest X-Ray 03/18/17 0000 Signed Impressions: Service Date/Time: Saturday, March 18, 2017 22:29 - CONCLUSION: Improving left base infiltrate, currently mild. Abelino Mchugh MD Abdomen/Pelvis CT 03/11/17 1517 Signed Impressions: Service Date/Time: Saturday, March 11, 2017 17:26 - CONCLUSION: Basilar lung consolidation and effusion. Abnormal gallbladder appearance, nonacute. Colonic diverticulosis. Abelino Champagne MD Objective Remarks stuporous- on Bipap anicteric decreased breath sounds, tachypneic tachycardic 128 abdomen soft, extremities no edema, good peripheral pulses Date of Insertion: Mar 10, 2017 A/P Problem List: (1) Acute hypoxemic and hypercarbic respiratory failure Status: Acute (2) Acute exacerbation of chronic obstructive pulmonary disease (COPD) ICD Code: J44.1 Status: Acute (3) Severe sepsis ICD Code: A41.9 Status: Acute (4) Possible pneumonia Status: Acute (5) Diastolic heart failure ICD Code: I50.30 Status: Acute (6) COPD on home oxygen Status: Acute (7) Seizure disorder ICD Code: G40.909 Status: Acute Assessment and Plan 72 years old female Acute respiratopry failure Acute cardiogenic valentina long discussion with sons - confirmed no code hospice consult start IV Lorazepam- q 3 prn for comfort measures History of seizure disorder - Neurontin 100 mg 3 times a day - Watch for seizures, seizure precautions - Neurochecks - neuro stable RESP: Acute hypoxemic and hypercarbic respiratory failure Acute COPD exacerbation - 02 dependent Pneumonia - BiPAP 07/09, I/O 50%. Alternating high flow nasal cannula - DuoNeb every 4 hours scheduled and when necessary - IV Solu-Medrol 40 mg decrease to 30 mg q 12 03/18 - Continue Symbicort ,theophylline Spiriva - 03/12 CXR-bilateral lung consolidation left greater than right. Small amount of pleural fluid - ID following-Dr. Byrd- on Azactam - Dr. Bruce ff- arrange for biPAp as OP CV: Diastolic heart failure Pedal edema - improved - Received 80 mg IV Lasix in the ED. Continue 20 mg IV Lasix every 12 - 03/10 2-D echo-ejection fraction less than 65%. No regional wall motion abnormalities. Grade 1 diastolic dysfunction. Moderate pulmonary hypertension (50-60 mmHg) GI: Acute lower GI bleeding 03/15 REflux sensation- received KCL effervescent - IV PPI - 03/11 CT abdomen-diverticulosis, no free air, nonacute abnormal gallbladder - continue Bowel regimen - GI ff- plan for eventual scope- this week - CBC stable Hypokalemia - KCL 10 meq po bid - Monitor renal function closely. - - Continue Salinas catheter ID: - Antibiotics per ID. - Dr. Byrd ff. on Azactam - 03/10 blood and sputum culture- NGTD HEME: -Monitor CBC, CMP -03/11 2 u PRBC ENDO: - Electrolyte replacement per protocol -Potassium chloride 40 mEq -Glucose monitoring per ICU protocol PROPH: - Bilateral lower extremity SCDs. Lovenox 40 mg subcutaneous daily- hold for now with acute lower GIB. on Protonix 40 mg daily LINES: - Utilize peripheral IVs, central line if needed Dispo: Palliative care team consulted for decisions regarding of goals of care. 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 does not want SNF Admit to in patient hospice Problem Qualifiers (1) Diastolic heart failure: Qualified Code: I50.30 - Diastolic heart failure, unspecified heart failure chronicity Almaz Murphy MD Mar 19, 2017 11:31
[2017-03-19] MEDS ORDERED: FUROSEMIDE 20 MG/2 ML VIAL IV PRN (13:00)
[2017-03-19] MEDS ORDERED: HYOSCYAMINE 0.5 MG/ML AMP IV PRN (13:00)
[2017-03-19] MEDS ORDERED: BISACODYL 10 MG SUPP PR PRN (13:00)
[2017-03-19] MEDS ORDERED: ACETAMINOPHEN 650 MG SUPP PR PRN (13:00)
[2017-03-19] MEDS ORDERED: LORazepam 2 MG/ML VIAL IV PRN ×2 (13:00)
--- NOTE | 2017-03-19 13:05 | HHI.PR ---
Subjective Remarks She was in distress earlier On Bipap now but labored breathing. Low sats. Objective Vital Signs Date Time Temp Pulse Resp B/P Pulse Ox O2 Delivery O2 Flow Rate FiO2 03/19/17 12:57 0 03/19/17 11:00 134 61/43 76 03/19/17 10:00 134 94/53 77 03/19/17 10:00 134 03/19/17 09:10 78 100 03/19/17 09:00 126 92/55 89 03/19/17 09:00 Bi-Pap 100 03/19/17 08:00 103 03/19/17 08:00 99.0 115 92/51 90 03/19/17 07:00 113 83/56 84 03/19/17 07:00 88 Non-Rebreather 10.00 03/19/17 06:33 103 80/52 99 03/19/17 06:30 106 93 03/19/17 06:00 93 87/51 98 03/19/17 06:00 93 03/19/17 05:30 93 97 03/19/17 05:00 92 78/47 97 03/19/17 04:30 94 96 03/19/17 04:00 98.4 104 18 94/56 94 03/19/17 04:00 104 03/19/17 04:00 104 94/56 94 03/19/17 04:00 104 94/56 94 03/19/17 03:45 99 99 03/19/17 03:30 106 98 03/19/17 03:15 112 86 03/19/17 03:00 105 109/54 99 03/19/17 02:45 100 84/52 98 03/19/17 02:30 103 91/52 97 03/19/17 02:15 109 96/61 97 03/19/17 02:00 101 91/54 95 03/19/17 02:00 101 03/19/17 01:45 110 95/50 97 03/19/17 01:30 107 97/55 96 03/19/17 01:15 116 102/57 96 03/19/17 01:00 116 108/58 98 03/19/17 00:45 119 103/55 94 03/19/17 00:30 122 100/58 96 03/19/17 00:29 18 03/19/17 00:15 122 104/55 96 8/15/17 00:00 128 03/19/17 00:00 128 127/56 96 03/19/17 00:00 100.1 128 18 127/56 96 03/19/17 00:00 128 127/56 96 03/18/17 23:45 134 119/60 97 03/18/17 23:30 132 120/65 97 03/18/17 23:23 149 03/18/17 23:15 149 126/65 98 03/18/17 23:03 18 03/18/17 23:00 146 135/67 98 03/18/17 22:45 154 115/64 100 03/18/17 22:36 152 133/68 99 03/18/17 22:00 132 180/78 86 03/18/17 22:00 95 Non-Rebreather 15.00 03/18/17 22:00 86 Non-Rebreather 100 03/18/17 22:00 132 03/18/17 21:57 130 179/86 84 03/18/17 21:00 102 141/68 94 03/18/17 20:00 113 147/73 93 03/18/17 20:00 93 Nasal Cannula 4.00 03/18/17 20:00 113 03/18/17 20:00 99.0 113 20 147/74 93 03/18/17 19:05 93 Nasal Cannula 3.00 03/18/17 18:00 84 03/18/17 17:00 79 138/65 96 03/18/17 16:00 86 03/18/17 16:00 98.3 77 138/65 97 03/18/17 15:00 86 127/55 93 03/18/17 14:00 76 03/18/17 14:00 101 123/82 93 I/O 03/18/17 03/18/17 03/18/17 03/19/17 03/19/17 03/19/17 07:00 15:00 23:00 07:00 15:00 23:00 Intake Total 312 ml 720 ml 240 ml 200 ml Output Total 450 ml 1000 ml 750 ml 225 ml Balance -138 ml -280 ml -510 ml -25 ml Intake Oral 240 ml 720 ml 240 ml 200 ml IV Total 72 ml 0 ml 0 ml Output Urine Total 450 ml 1000 ml 750 ml 225 ml # Bowel Movements 1 0 0 Result Diagram: 03/18/175 03/18/17 0445 Objective Remarks This elderly averagely built white female is not responsive. HEENT: Head normocephalic. Pupils are reactive. Nasal mucosa dry. Neck: Supple. No bruits or thyroid enlargement. Chest: Distant breath sounds with expiratory wheezes bilaterally, prolonged expirations.Occ Crackles. Heart: The heart sounds are irregular S1-S2. No murmur. No S3. Abdomen: Soft, nontender, no organomegaly. Bowel sounds are active. Extremities: 2 + edema with varicosities and decreased peripheral pulses. Reflexes not elicited Rectal: Exam is deferred. Assessment and Plan Assessment and Plan IMPRESSION 1. Hypercapnic hypoxic respiratory failure. 2. 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 CHF 4. History of cervical spondylosis with chronic pain. 5. Sepsis. 6. Depression/anxiety. Plan : 1. Leave on Bipap 2. Continue nebs qid , duoneb 3. Comfort care per family 4. Solumedrol 40 mg IV q12h 5. Cont Diuretic daily 6. Giovani 24, 300 mg daily. 7. Poor prognosis.D/W family Ariane Dc MD Mar 19, 2017 13:05
--- NOTE | 2017-03-19 13:07 | HHI.PR ---
Addendum to Inpatient Note Addendum Reason: Additional Documentation Additional Information patient 12:58 pm sons at bedside Almaz Murphy MD Mar 19, 2017 13:07
--- NOTE | 2017-03-19 13:08 | HHI.DS ---
Summary Note Date of : Mar 19, 2017 Time Of : 12:58 Admission Date Mar 10, 2017 at 03:00 Admitting Diagnosis hypoxic/hypercapnic respiratory failure, pulmonary source sepsis Diagnosis at Time of : (1) Acute hypoxemic and hypercarbic respiratory failure Diagnosis: Principal (2) Acute exacerbation of chronic obstructive pulmonary disease (COPD) ICD Code: J44.1 Diagnosis: Principal (3) Severe sepsis ICD Code: A41.9 Diagnosis: Principal (4) Possible pneumonia Diagnosis: Principal (5) Diastolic heart failure ICD Code: I50.30 Diagnosis: Secondary (6) COPD on home oxygen Diagnosis: Secondary (7) Seizure disorder ICD Code: G40.909 Diagnosis: Secondary Brief History Patient is a 72-year-old chronically ill debilitated female with history of COPD on home oxygen, pneumonia, diastolic heart failure, COPD on chronic home O2 who presented to the emergency department with shortness of breath. She was recently discharged from [facility] after admission for pneumonia and was at [facility] for Rehab. Patient was dyspneic with crackles on the chest and 70% oxygen saturation. [facility] placed her on 50% Ventimask without improvement and EMS was contacted. EMS initiated on CPAP with improvement of O2 saturation to 90s. In emergency department patient was found in acute distress and was placed on BiPAP, given DuoNeb 3 and 80 mg of Lasix IV. ABG just after patient was placed on BiPAP shows respiratory acidosis with pH 7.19, PCO2 109, PO2 88. WBC was elevated at 15.1 with left shift. Lactic acid slightly elevated at 2.5. Patient was empirically covered with vancomycin and Zosyn for possible HCAP I evaluated the patient in the ED. Currently remains on BiPAP symptomatically slightly improved but still has labored breathing and diffuse crackles. Patient would like to try to avoid intubation if possible and son concurs with her decision. She want to continue to be a full code. Chest x-ray on my review did not show any acute infiltrates. I will continue breathing treatments and start IV Solu-Medrol 125 mg 1 and 60 mg IV every 8 hours. Broad -spectrum antibiotics coverage with Azactam. Updated patient and her son at the bedside. I informed him that if not steadily improving patient may need endotracheal intubation CBC/BMP: 03/18/17 0445 03/18/17 0445 Significant Findings Laboratory Tests Test 03/17/17 03/18/17 03/19/17 03/19/17 05:05 04:45 00:19 05:09 White Blood Count 12.5 TH/MM3 15.5 TH/MM3 (4.0-11.0) (4.0-11.0) Red Blood Count 3.56 MIL/MM3 3.31 MIL/MM3 (4.00-5.30) (4.00-5.30) Hemoglobin 10.7 GM/DL 10.0 GM/DL (11.6-15.3) (11.6-15.3) Hematocrit 31.3 % 29.5 % (35.0-46.0) (35.0-46.0) Neutrophils (%) (Auto) 95.6 % (16.0-70.0) Lymphocytes (%) (Auto) 2.2 % (9.0-44.0) Neutrophils # (Auto) 14.9 TH/MM3 (1.8-7.7) Lymphocytes # (Auto) 0.3 TH/MM3 (1.0-4.8) Neutrophils % (Manual) 91 % (16-70) Neutrophils # (Manual) 15.0 TH/MM3 (1.8-7.7) Myelocytes 2 % (0-0) Blood Urea Nitrogen 25 MG/DL (7-18) Random Glucose 138 MG/DL (74-106) Calcium Level 7.3 MG/DL (8.5-10.1) Total Protein 5.0 GM/DL (6.4-8.2) Total Creatine Kinase 25 U/L (26-192) Troponin I 0.11 NG/ML 0.12 NG/ML (0.02-0.05) (0.02-0.05) Imaging CXR No acute findings Hospital Course 72 years old female Acute respiratopry failure Acute cardiogenic valentina long discussion with sons - confirmed no code hospice consult start IV Lorazepam- q 3 prn for comfort measures History of seizure disorder - Neurontin 100 mg 3 times a day - Watch for seizures, seizure precautions - Neurochecks - neuro stable RESP: Acute hypoxemic and hypercarbic respiratory failure Acute COPD exacerbation - 02 dependent Pneumonia - BiPAP 12/5, I/O 50%. Alternating high flow nasal cannula - DuoNeb every 4 hours scheduled and when necessary - IV Solu-Medrol 40 mg decrease to 30 mg q 12 03/18 - Continue Symbicort ,theophylline Spiriva - 03/12 CXR-bilateral lung consolidation left greater than right. Small amount of pleural fluid - ID following-Dr. Byrd- on Azactam - Dr. Bruce ff- arrange for biPAp as OP CV: Diastolic heart failure Pedal edema - improved - Received 80 mg IV Lasix in the ED. Continue 20 mg IV Lasix every 12 - 03/10 2-D echo-ejection fraction less than 65%. No regional wall motion abnormalities. Grade 1 diastolic dysfunction. Moderate pulmonary hypertension (50-60 mmHg) GI: Acute lower GI bleeding 03/15 REflux sensation- received KCL effervescent - IV PPI - 03/11 CT abdomen-diverticulosis, no free air, nonacute abnormal gallbladder - continue Bowel regimen - GI ff- plan for eventual scope- this week - CBC stable Hypokalemia - KCL 10 meq po bid - Monitor renal function closely. - - Continue Salinas catheter ID: - Antibiotics per ID. - Dr. Byrd ff. on Azactam - 03/10 blood and sputum culture- NGTD HEME: -Monitor CBC, CMP -03/11 2 u PRBC ENDO: - Electrolyte replacement per protocol -Potassium chloride 40 mEq -Glucose monitoring per ICU protocol PROPH: - Bilateral lower extremity SCDs. Lovenox 40 mg subcutaneous daily- hold for now with acute lower GIB. on Protonix 40 mg daily LINES: - Utilize peripheral IVs, central line if needed Dispo: Palliative care team consulted for decisions regarding of goals of care. 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 does not want SNF Admit to in patient hospice patient [id number] with sons at bedside Almaz Murphy MD Mar 19, 2017 13:08
--- NOTE | 2017-03-19 13:43 | HHI.HCPN ---
Reason for visit a. To assist with evaluation and management of symptoms including: dyspnea, anxiety b. To assist medical decision maker(s) with: better understanding of current medical conditions; weighing benefits/burdens of medical treatment options; making medical treatment decisions. Subjective/Interval History [late entry pt actually seen at 1130 ] Pt seen to follow up on comfort, goals.Notified by nursing prior to my arrival to unit that pt w resp deterioration, requesting comfort/hospice, no further escalation. Attending MD entering hospice consult at that time. D/w Dr Murphy on phone, she will enter ativan for comfort/dyspnea. Upon my arrival to the unit discussed with primary nurse. ------- Pt s/p GI evaluation last Saturday for rectal bleeding, rec. cont supportive care unless further acute bleeding. Reported maroon stool, no acute bleeding noted. H&H stable post RBC transfusion Saturday. Overnight w / episode resp distress, decrease O2 sats,tachycardic, hypotensive. Total Creatine Kinase 25 U/L, Troponin 0.11 NG/ML-->repeat 0.12 NG/ML. required Bipap. CXR yesterday= Improving left base infiltrate, currently mildMed attending had discussion w pt, family (pt lethargic) this morning, pt son and HCS elected comfort measures based on pt known wishes. 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 Patient is nonresponsive on Bipap, tachycardic HR 120s, hypotensive bp 70s/ 50s. O2 sats 60-70s. Mildly tachypneic. Spoke with , son/HCS Brent. Brent indicates he has had ongoing conversations w pt, after our discussions together last week RE pt conditions, prognosis. He feels her wishes at this time would be to remove Bipap and have comfort measures only for EOL. He does not want her to suffer any more. Anticipatory guidance provided. They wish to hold off on hospice consult today, and will plan to meet with hospice tomorrow if pt remains stable, for possible transfer to a care center. Comfort orders to be entered by palliative. Exhibits B, C, for removal of Bipap signed and in chart. D/w at length w primary RN, medical attending, hospice admissions. \\ \\ \\ Pt seen in room, she has not been able to talk more with her son RE hospice, she wishes to cont current treatments in place now. . Family/friend interactions * see above . Advance Directives Health Care Surrogate: Copy in medical record Advance Directive Specifics Date completed: 03/11/17 Health Care Surrogate(s): Named son Brent As HCS Objective Vital Signs Date Time Temp Pulse Resp B/P Pulse Ox O2 Delivery O2 Flow Rate FiO2 03/19/17 12:57 0 03/19/17 12:00 121 61/39 78 03/19/17 12:00 72 03/19/17 11:00 134 61/43 76 03/19/17 10:00 134 94/53 77 03/19/17 10:00 134 03/19/17 09:10 78 100 03/19/17 09:00 126 92/55 89 03/19/17 09:00 Bi-Pap 100 03/19/17 08:00 103 03/19/17 08:00 99.0 115 92/51 90 03/19/17 07:00 113 83/56 84 03/19/17 07:00 88 Non-Rebreather 10.00 03/19/17 06:33 103 80/52 99 03/19/17 06:30 106 93 03/19/17 06:00 93 87/51 98 03/19/17 06:00 93 03/19/17 05:30 93 97 03/19/17 05:00 92 78/47 97 03/19/17 04:30 94 96 03/19/17 04:00 98.4 104 18 94/56 94 03/19/17 04:00 104 03/19/17 04:00 104 94/56 94 03/19/17 04:00 104 94/56 94 03/19/17 03:45 99 99 03/19/17 03:30 106 98 03/19/17 03:15 112 86 03/19/17 03:00 105 109/54 99 03/19/17 02:45 100 84/52 98 03/19/17 02:30 103 91/52 97 03/19/17 02:15 109 96/61 97 03/19/17 02:00 101 91/54 95 03/19/17 02:00 101 03/19/17 01:45 110 95/50 97 03/19/17 01:30 107 97/55 96 03/19/17 01:15 116 102/57 96 03/19/17 01:00 116 108/58 98 03/19/17 00:45 119 103/55 94 03/19/17 00:30 122 100/58 96 03/19/17 00:29 18 03/19/17 00:15 122 104/55 96 03/19/17 00:00 128 03/19/17 00:00 128 127/56 96 03/19/17 00:00 100.1 128 18 127/56 96 03/19/17 00:00 128 127/56 96 03/18/17 23:45 134 119/60 97 03/18/17 23:30 132 120/65 97 03/18/17 23:23 149 03/18/17 23:15 149 126/65 98 03/18/17 23:03 18 03/18/17 23:00 146 135/67 98 03/18/17 22:45 154 115/64 100 03/18/17 22:36 152 133/68 99 03/18/17 22:00 132 180/78 86 03/18/17 22:00 95 Non-Rebreather 15.00 03/18/17 22:00 86 Non-Rebreather 100 03/18/17 22:00 132 03/18/17 21:57 130 179/86 84 03/18/17 21:00 102 141/68 94 03/18/17 20:00 113 147/73 93 03/18/17 20:00 93 Nasal Cannula 4.00 03/18/17 20:00 113 03/18/17 20:00 99.0 113 20 147/74 93 03/18/17 19:05 93 Nasal Cannula 3.00 03/18/17 18:00 84 03/18/17 17:00 79 138/65 96 03/18/17 16:00 86 03/18/17 16:00 98.3 77 138/65 97 03/18/17 15:00 86 127/55 93 8/14/17 14:00 76 03/18/17 14:00 101 123/82 93 Intake & Output 03/19/17 03/19/17 07:00 19:00 Intake Total 440 ml Output Total 975 ml Balance -535 ml Intake Oral 440 ml IV Total 0 ml Output Urine Total 975 ml # Bowel Movements 0 Physical Exam CONSTITUTIONAL/GENERAL: This is an adequately nourished patient, nonresponsive on Bipap TUBES/LINES/DRAINS:Peripheral IV bilateral upper extremities, BiPAP mask, [place] catheter, SKIN: No jaundice, rashes, or lesions. No wounds seen anteriorly. Skin temperature appropriate. Not diaphoretic. CARDIOVASCULAR: Regular rate and rhythm tachycardic rate 120s.. No JVD. Peripheral pulses faint/thready. RESPIRATORY/CHEST: Symmetric, mildly un respirations, mildly tachypneic. Breath sounds extremely diminished throughout. GASTROINTESTINAL: Abdomen soft, round/obese, nondistended. no palpable masses. Bowel sounds present. GENITOURINARY: Without palpable bladder distension. Sal[place] catheter in place. LYMPHATICS: No palpable cervical or supraclavicular adenopathy. NEUROLOGICAL: Lethargic/minimally responsive to exam. No movement of extremities. PSYCHIATRIC: Limited assessment due to clinical conditionno evident anxiety Diagnostic Tests Laboratory Laboratory Tests Test 03/17/17 03/18/17 03/19/17 03/19/17 05:05 04:45 00:19 05:09 White Blood Count 12.5 TH/MM3 15.5 TH/MM3 (4.0-11.0) (4.0-11.0) Red Blood Count 3.56 MIL/MM3 3.31 MIL/MM3 (4.00-5.30) (4.00-5.30) Hemoglobin 10.7 GM/DL 10.0 GM/DL (11.6-15.3) (11.6-15.3) Hematocrit 31.3 % 29.5 % (35.0-46.0) (35.0-46.0) Mean Corpuscular Volume 87.9 FL 89.0 FL (80.0-100.0) (80.0-100.0) Mean Corpuscular Hemoglobin 30.1 PG 30.2 PG (27.0-34.0) (27.0-34.0) Mean Corpuscular Hemoglobin 34.3 % 33.9 % Concent (32.0-36.0) (32.0-36.0) Red Cell Distribution Width 14.9 % 14.8 % (11.6-17.2) (11.6-17.2) Platelet Count 371 TH/MM3 406 TH/MM3 (150-450) (150-450) Mean Platelet Volume 9.4 FL 9.1 FL (7.0-11.0) (7.0-11.0) Neutrophils (%) (Auto) 95.6 % (16.0-70.0) Lymphocytes (%) (Auto) 2.2 % (9.0-44.0) Monocytes (%) (Auto) 2.2 % (0.0-8.0) Eosinophils (%) (Auto) 0.0 % (0.0-4.0) Basophils (%) (Auto) 0.0 % (0.0-2.0) Neutrophils # (Auto) 14.9 TH/MM3 (1.8-7.7) Lymphocytes # (Auto) 0.3 TH/MM3 (1.0-4.8) Monocytes # (Auto) 0.3 TH/MM3 (0-0.9) Eosinophils # (Auto) 0.0 TH/MM3 (0-0.4) Basophils # (Auto) 0.0 TH/MM3 (0-0.2) CBC Comment AUTO DIFF Differential Total Cells 100 Counted Neutrophils % (Manual) 91 % (16-70) Band Neutrophils % 3 % (0-6) Monocytes % 3 % (0-8) Neutrophils # (Manual) 15.0 TH/MM3 (1.8-7.7) Metamyelocytes 1 % (0-1) Myelocytes 2 % (0-0) Differential Comment FINAL DIFF MANUAL Platelet Estimate NORMAL (NORMAL) Platelet Morphology Comment NORMAL (NORMAL) Red Cell Morphology Comment NORMAL (NORMAL) Sodium Level 139 MEQ/L (136-145) Potassium Level 3.7 MEQ/L (3.5-5.1) Chloride Level 103 MEQ/L (98-107) Carbon Dioxide Level 29.2 MEQ/L (21.0-32.0) Anion Gap 7 MEQ/L (5-15) Blood Urea Nitrogen 25 MG/DL (7-18) Creatinine 0.53 MG/DL (0.50-1.00) Estimat Glomerular Filtration 113 ML/MIN Rate (>89) Random Glucose 138 MG/DL (74-106) Calcium Level 7.3 MG/DL (8.5-10.1) Protein Corrected Calcium 8.5 MG/DL (8.5-10.1) Total Protein 5.0 GM/DL (6.4-8.2) Total Creatine Kinase 25 U/L (26-192) 36 U/L (26-192) Troponin I 0.11 NG/ML 0.12 NG/ML (0.02-0.05) (0.02-0.05) Result Diagram: 03/18/17 0445 03/18/17 0445 Imaging Last Impressions Chest X-Ray 03/18/17 0000 Signed Impressions: Service Date/Time: Saturday, March 18, 2017 22:29 - CONCLUSION: Improving left base infiltrate, currently mild. Abelino Mchugh MD Abdomen/Pelvis CT 03/11/17 1517 Signed Impressions: Service Date/Time: Saturday, March 11, 2017 17:26 - CONCLUSION: Basilar lung consolidation and effusion. Abnormal gallbladder appearance, nonacute. Colonic diverticulosis. Abelino Champagne MD Assessment and Plan Disease Oriented Problem List: (1) Acute respiratory failure with hypoxia (2) Acute exacerbation of chronic obstructive pulmonary disease (COPD) (3) Diastolic heart failure (4) Pneumonia Symptom Scale: (1) Dyspnea (2) Anxiety Pertinent Non-Medical Issues Psychosocial: Spiritual: Legal:Pt currently a&O, appropriate, able to make her own decisions. She completed [facility] today, naming her son Brent as [facility]. Ethical issues impacting care: Important Contacts Son Brent [phone] (*named as [facility] 03/11/17) spouse Doc [phone] / [phone] Prognosis This pt with COPD was admitted for pneumonia. Of note, she has had recent hospitalization at [facility] for Pneumonia. She has COPD, O2 dependent for several years. Current medical treatment maximized. High risk for continues respiratory decline and need for intubation. High risk for complications, potential for prolonged mech ventilation if requires intubation 2/2 COPD. . Code Status: No Code Plan * Legal decision maker: Pt currently a&O, appropriate, able to make her own decisions. She completed [facility] 03/11, naming her son Brent as AMAN[facility]. * GOALS: COMFORT TREATMENT ONLY/ HOSPICE consult Saturday possible transfer to care center if patient stable. NO further aggressive treatments. * FULL CODE. DNR * SYMPTOMS: Comfort orders for BiPAP removal, dyspnea, anxiety, pain entered by palliative/ hospice consult tomorrow for further symptom management --dyspnea:admitted for hypoxia, SOB, chest CT =Basilar lung consolidation and effusion. If goals are aggressive, May require intubation. (DNR) previously using BiPAP, today family elects comfort focus treatments only no further BiPAP -- anxiety/depression- hx anxiety + depression. Anxiety worsens w dyspnea. -- c/o reflux discomfort- has hx of. feels that her home omeprazole works better than protonix, also feels this has been ongoing/worse since possible retained pill in esophagus which she was seen at [facility] for in January. Of note, this may be exacerbated by acute hospitalization, steroids. She is on protonix 40mg daily, + magic mouthwash * Palliative care will continue to follow during hospital course as condition evolves, to assist patient/decision-maker with understanding of medical conditions, weighing benefits/burdens of treatment options, for clarification of goals of treatment. Additionally will assist with any symptoms of palliative concern Time Spent Total Floor Time (mins): 40 Attestation To help prompt me to consider important information that might be impacting today's encounter and assessment, information from prior notes written by myself or my colleagues may have been "brought forward" into today's note. My signature on this note, however, is an attestation that I personally performed the exam, history, and/or decision-making noted today, and, unless otherwise indicated, the interactions with patient, family, and staff as well as the review of records all occurred today. I also attest that the listed assessment and stated plan reflect my best clinical judgment today based on the combination of historical information, prior notes, and today's exam/ interactions. When time spent is documented, it refers only to time spent today by the signer, or if indicated, combined time spent today by collaborating physician/nurse practitioner. Melanie Ceravntes Mar 19, 2017 13:43
--- NOTE | 2017-03-19 13:45 | EKG ---
Date Performed: 03/19/2017 Time Performed: 09:41:35 PTAGE: 72 years EKG: SINUS TACHYCARDIA WITH SHORT MA INTERVAL NONSPECIFIC T-WAVE ABNORMALITY ABNORMAL RHYTHM ECG Compared to prior tracing no significant change PREVIOUS TRACING : 03/19/2017 06.22 DOCTOR: Pantera Ley Interpretating Date/Time 03/19/2017 13:43:42
[2017-03-19] MEDS ORDERED: HYDROmorphone HCL PF 1 MG/ML VIAL IV ONE ×2 (14:00→14:15)
[2017-03-19] MEDS ORDERED: LORazepam 2 MG/ML VIAL IV ONE (14:15)
== END 2017-03-19 12:58 | disposition expired | DRG 871 ==
LOC: NEPE 01:00 → NEDA 03:00 → HIMN 05:50
PROVIDERS: ADMIT Internal Medicine; ATTEND Internal Medicine
PROC: 5A09557 Assistance with Respiratory Ventilation, Greater than 96 Consecutive Hours, Continuous Positive Airway Pressure (ICD-10-PCS; principal; 2017-03-10)
PROC: 30233N1 Transfusion of Nonautologous Red Blood Cells into Peripheral Vein, Percutaneous Approach (ICD-10-PCS; 2017-03-11)
DX: A41.9 Sepsis, unspecified organism (principal); J18.9 Pneumonia, unspecified organism; R57.0 Cardiogenic shock; E87.2 Acidosis; J96.01 Acute respiratory failure with hypoxia; J96.02 Acute respiratory failure with hypercapnia; K92.2 Gastrointestinal hemorrhage, unspecified; I50.32 Chronic diastolic (congestive) heart failure; J44.0 Chronic obstructive pulmonary disease with (acute) lower respiratory infection; I27.2 Other secondary pulmonary hypertension; J44.1 Chronic obstructive pulmonary disease with (acute) exacerbation; D62 Acute posthemorrhagic anemia; Z99.81 Dependence on supplemental oxygen; G40.909 Epilepsy, unspecified, not intractable, without status epilepticus; R65.20 Severe sepsis without septic shock; E87.6 Hypokalemia; F41.9 Anxiety disorder, unspecified; F32.9 Major depressive disorder, single episode, unspecified; K59.00 Constipation, unspecified; K57.30 Diverticulosis of large intestine without perforation or abscess without bleeding; Z51.5 Encounter for palliative care; Z66 Do not resuscitate; K21.9 Gastro-esophageal reflux disease without esophagitis; M47.812 Spondylosis without myelopathy or radiculopathy, cervical region; G89.29 Other chronic pain; Z87.891 Personal history of nicotine dependence; Z88.1 Allergy status to other antibiotic agents; Z88.5 Allergy status to narcotic agent; Z91.041 Radiographic dye allergy status
CPT/HCPCS: 36430; 36600; 71010; 74176; 80048; 80053; 81001; 82550; 82805; 82948; 83605; 83690; 83735; 83880; 84100; 84132; 84155; 84484; 85007; 85014; 85018; 85025; 85027; 85610; 85730; 86850; 86900; 86901; 86920; 87040; 87641; 93005; 93306; 94002; 94003; 94640; 94664; 96365; 96375; C9113; J1170; J1650; J1815; J1940; J2060; J2405; J2543; J2920; J2930; J3370; J3480; J7030; J7040; J7050; J7512; P9016; P9047; P9612